=== PATIENT | female | born 1945 | race Caucasian/White ===

== ENCOUNTER 2019-07-24 14:15 | Emergency (ER) | payer MEDICARE, BC ==
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
[2019-07-24 15:37] LABS: INTERNATIONAL RATION (INR) 0.97; PROTHROMBIN TIME 12.9 SEC (11.4-15.4)
[2019-07-24 15:38] LABS: PARTIAL THROMBOPLASTIN TIME 33.7 SEC (23.5-35.8)
[2019-07-24 15:40] LABS: ABSOLUTE BASOPHILS # (AUTO) 0.1 10^3/uL (0.0-0.2); ABSOLUTE LYMPHOCYTES (AUTO) 1.3 10^3/uL (0.5-4.7); ABSOLUTE NEUT (AUTO) 4.5 10^3/uL (1.7-8.2); BASOPHILS % (AUTO) 0.9 % (0-2); EOSINOPHILS % (AUTO) 0.7 % (0-6); HEMATOCRIT 33.4 % (36.0-47.0); HEMOGLOBIN 10.7 g/dL (12.0-15.5); LYMPHOCYTES % (AUTO) 18.9 % (13-45); MEAN CORPUSCULAR HGB CONC 32.1 g/dL (32.0-36.0); MEAN CORPUSCULAR VOLUME 75 fl (80-97); MONOCYTES % (AUTO) 14.9 % (3-13); PLATELET COUNT 601 10^3/uL (150-450); RED BLOOD COUNT 4.45 10^6/uL (3.72-5.28); RED CELL DISTRIBUTION WIDTH 23.6 % (11.5-14.0); SEGMENTED NEUTROPHILS % (AUTO) 64.6 % (42-78); TOTAL CELLS COUNTED % (AUTO) 100 %; WHITE BLOOD COUNT 6.9 10^3/uL (4.0-10.5)
[2019-07-24 16:05] LABS: ALKALINE PHOSPHATASE 371 U/L (38-126); ANION GAP 10 (5-19); ASPARTATE AMINO TRANSFERASE 29 U/L (14-36); BILIRUBIN,DIRECT 0.5 mg/dL (0.0-0.4); BILIRUBIN,TOTAL 0.7 mg/dL (0.2-1.3); BLOOD UREA NITROGEN 11 mg/dL (7-20); CALCIUM 9.2 mg/dL (8.4-10.2); CARBON DIOXIDE 29 mmol/L (22-30); CHLORIDE 97 mmol/L (98-107); GLUCOSE 128 mg/dL (75-110); POTASSIUM 3.8 mmol/L (3.6-5.0); TOTAL PROTEIN 6.1 g/dL (6.3-8.2)
[2019-07-24 18:15] VITALS: BP 110/77
== END 2019-07-24 18:41 | disposition short-term general hospital (02) ==
LOC: ER 14:15
DX: S06.5X0A Traumatic subdural hemorrhage without loss of consciousness, initial encounter (principal); W10.2XXA Fall (on)(from) incline, initial encounter; R51 Headache; R27.0 Ataxia, unspecified; R53.1 Weakness; Z88.5 Allergy status to narcotic agent; Z88.0 Allergy status to penicillin; Z88.2 Allergy status to sulfonamides
CPT/HCPCS: 36415; 70450; 80053; 85025; 85610; 85730; 99291

== ENCOUNTER 2019-11-26 09:15 | Inpatient (IN) | payer MEDICARE, OTHER ==
[2019-11-26 09:55] LABS: HEMATOCRIT 29.8 % (36.0-47.0); HEMOGLOBIN 9.3 g/dL (12.0-15.5); MEAN CORPUSCULAR HEMOGLOBIN 26.6 pg (27.0-33.4); MEAN CORPUSCULAR HGB CONC 31.1 g/dL (32.0-36.0); MEAN CORPUSCULAR VOLUME 86 fl (80-97); PLATELET COUNT 302 10^3/uL (150-450); RED BLOOD COUNT 3.48 10^6/uL (3.72-5.28); RED CELL DISTRIBUTION WIDTH 17.1 % (11.5-14.0); WHITE BLOOD COUNT 24.9 10^3/uL (4.0-10.5)
[2019-11-26 10:08] LABS: ALBUMIN 3.4 g/dL (3.5-5.0); ALKALINE PHOSPHATASE 336 U/L (38-126); ANION GAP 8 (5-19); ASPARTATE AMINO TRANSFERASE 68 U/L (14-36); BILIRUBIN,DIRECT 0.4 mg/dL (0.0-0.4); BILIRUBIN,TOTAL 0.5 mg/dL (0.2-1.3); BLOOD UREA NITROGEN 24 mg/dL (7-20); CALCIUM 9.7 mg/dL (8.4-10.2); CARBON DIOXIDE 37 mmol/L (22-30); CHLORIDE 94 mmol/L (98-107); GLUCOSE 263 mg/dL (75-110); POTASSIUM 4.8 mmol/L (3.6-5.0); TOTAL PROTEIN 6.7 g/dL (6.3-8.2)
[2019-11-26 10:21] LABS: ABSOLUTE MONOCYTES # (MANUAL) 1.7 10^3/uL (0.1-1.4); BAND NEUTROPHILS % (MANUAL) 1 % (3-5); BASOPHILS % (MANUAL) 0 % (0-2); EOSINOPHILS % (MANUAL) 1 % (0-6); LYMPHOCYTES % (MANUAL) 8 % (13-45); MONOCYTES % (MANUAL) 7 % (3-13); SEGMENTED NEUTROPHILS % (MAN) 83 % (42-78); TOTAL CELLS COUNTED 100
[2019-11-26 10:22] LABS: ANISOCYTOSIS 1+; PLATELET COMMENT ADEQUATE; POIKILOCYTOSIS 2+; STOMATOCYTES 2+
--- NOTE | 2019-11-26 10:28 | RADIOLOGY REPORT (SQ) ---
EXAM DESCRIPTION: HIP LEFT AP/LATERAL COMPLETED DATE/TIME: 11/26/2019 10:13 am REASON FOR STUDY: tenderness from fall COMPARISON: None. NUMBER OF VIEWS: Two views. TECHNIQUE: AP pelvis and additional frog-leg view of the left hip. LIMITATIONS: None. FINDINGS: Bones are osteopenic. Acute intertrochanteric fracture of the left femoral neck. Old lef t pubic rami fractures. IMPRESSION: Intertrochanteric fracture left femoral neck. TECHNICAL DOCUMENTATION: JOB ID: [id number] [email or web address]- All Rights Reserved Reading location - IP/workstation name: [email or web address]
--- NOTE | 2019-11-26 10:29 | RADIOLOGY REPORT (SQ) ---
EXAM DESCRIPTION: HUMERUS LEFT COMPLETED DATE/TIME: 11/26/2019 10:13 am REASON FOR STUDY: left tenderness;fall COMPARISON: None. NUMBER OF VIEWS: Two views. TECHNIQUE: Two radiographic images were acquired of the left humerus to include elbow and shoulder i n at least one projection. LIMITATIONS: None. FINDINGS: MINERALIZATION: Osteopenia. BONES: Comminuted fracture of the surgical neck extending into the anatomic neck. Less than 1 cm dis placement. SOFT TISSUES: No foreign body. OTHER: No other significant finding. IMPRESSION: Fracture of the surgical neck extending into the anatomic neck. TECHNICAL DOCUMENTATION: JOB ID: [id number] [employer]- All Rights Reserved Reading location - IP/workstation name: [email or web address]
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
[2019-11-26] MEDS ORDERED: FENTANYL CITRATE INJ/PF 100 MCG/2 ML AMPUL IV ONE ×2 (10:31→12:12)
[2019-11-26] MEDS ORDERED: ONDANSETRON HCL INJ/PF 4 MG/2 ML SDV IV ONE (10:31)
[2019-11-26] MEDS ORDERED: CEFTRIAXONE 1 GM/D5W RTU 1 GM/50 ML RTUPB IV ONE (10:33)
[2019-11-26] MEDS ORDERED: AZITHROMYCIN INJ 500 MG VIAL IV ONE (10:34)
--- NOTE | 2019-11-26 10:45 | ER Document Report ---
ED General - General Chief Complaint: Shortness Of Breath Stated Complaint: FALL - ARM/HIP PAIN LEFT SIDE Time Seen by Provider: 11/26/19 10:05 Primary Care Provider: JASMIN MCBRIDE MD [Primary Care Provider] - Follow up as needed TRAVEL OUTSIDE OF THE [place] IN LAST 30 DAYS: No - HPI Notes: Patient is a 74-year-old female, oxygen dependent, with history of CAD, COPD, who presents to the emergency department for evaluation of left hip and left shoulder pain after a fall. She states she got up to go to the bathroom and just fell. She denies hitting her head. No loss of consciousness. No neck or back pain. She puts her pain at a 5 out of 5 in both her shoulder and her left hip. She denies any numbness. She states she has had a cough. She has chronic shortness of breath, states it feels somewhat worse now, but she is unsure as to whether or not this is secondary to her pain. No fevers or chills. No nausea or vomiting. She is been taking her medications as prescribed. - Related Data Allergies/Adverse Reactions: codeine Allergy (Verified 07/24/19 14:17) morphine Allergy (Verified 11/26/19 10:58) nitrofurantoin Allergy (Verified 11/26/19 10:58) Penicillins Allergy (Verified 07/24/19 14:17) Jaiqvmz-Syg-Rlt Reductase Inhibitor Allergy (Verified 11/26/19 10:58) Sulfa (Sulfonamide Antibiotics) Allergy (Verified 07/24/19 14:17) donatol Allergy (Uncoded 11/26/19 10:58) Home Medications: Losartan 25 mg daily, isosorbide mononitrate 30 mg twice a day, Synthroid 50 mcg daily, Lexapro 20 mg daily, metoprolol 50 mg daily, oxybutynin 5 mg twice a day, lutein 20 mg daily, folate 800 mcg daily, vitamin D3 25 mcg daily, vitamin B12 1000 international units daily, nitroglycerin 0.4 mg as needed, Symbicort 160/4.5 mcg daily, Spiriva 2.5 mcg daily Past Medical History - General Information source: Patient - Social History Smoking Status: Former Smoker Drug Abuse: None Family History: None Patient has suicidal ideation: No Patient has homicidal ideation: No - Past Medical History Cardiac Medical History: Reports: Hx Congestive Heart Failure, Hx Coronary Artery Disease, Hx Hypertension Pulmonary Medical History: Reports: Hx COPD Endocrine Medical History: Reports: Hx Diabetes Mellitus Type 2, Hx Hypothyroidism Past Surgical History: Reports: Hx Appendectomy, Hx Breast Surgery - left lumpectomy, Hx Cardiac Catheterization, Hx Cardiac Surgery - bypass, defib, stents x6, Hx Cholecystectomy Review of Systems - Review of Systems Constitutional: No symptoms reported EENT: No symptoms reported Cardiovascular: No symptoms reported Respiratory: See HPI Gastrointestinal: No symptoms reported Genitourinary: No symptoms reported Musculoskeletal: See HPI Skin: No symptoms reported Neurological/Psychological: No symptoms reported Physical Exam - Vital signs Vitals: Pulse Ox 82 L 11/26/19 09:18 - Notes Notes: This is a very frail-appearing 74-year-old female who appears her stated age in a mild amount of stress. She is tachypneic, using accessory muscles of res piration, marked increased work of breathing. Vital signs reviewed, please refer to chart. Head is normocephalic, atraumatic. Pupils equal round, reactive to light. Neck is supple without meningismus. Heart is regular rate and rhythm. Lungs reveal rales bilaterally. Abdomen is soft, nontender, normoactive bowel sounds throughout. Extremities without cyanosis, clubbing. Posterior calves are nontender. Peripheral pulses are equal. Skin is warm and dry. Examination of the left upper extremity yields obvious deformity at the humeral head with tenderness overlying. No clavicular tenderness. Full range of motion at the elbow, wrist, fingers, thumb. Radial pulse 2+. Examination of the left lower extremity yields a shortened, rotated left lower extremity and tenderness over the left greater trochanter. Neurovascular intact distally. Course - Re-evaluation Re-evalutation: 11/26/19 10:47 Patient presents to the emergency department for evaluation. She initially presented because of a fall. On arrival, however, she was tachypneic, tachycardic, markedly hypoxic on her normal home oxygen. Laboratory investigat ions were obtained, images of the chest, shoulder, hip were ordered as well. Chest x-ray showed findings most consistent with edema versus pneumonia. My suspicion clinically is that this is edema, but she does have a markedly elevated white count. Lactate, blood cultures were ordered. Patient was treated with Rocephin and azithromycin. She was placed on BiPAP. Additional laboratory investigations were ordered, including troponin, proBNP. Briggs catheter was ordered secondary to her immobilization from her left hip fracture. She was administered fentanyl and Zofran for symptoms. Dr. Mcintosh was consulted in regards to her orthopedic needs, but she will certainly need further medical management before being stable enough for surgery. This was explained to Dr. Mcintosh. Awaiting stabilization and further results, we will continue to monitor. 11/26/19 11:06 I was present in the room when patient was administered fentanyl. Her respiratory drive decreased. Her oxygen needs increased. I did put on 100% FiO2, and BiPAP was called more emergently to the room. Over the course of sev eral minutes, patient became more alert. I was not inclined to reverse this fentanyl given the 2 significant fractures that the patient has at this time. She is placed on BiPAP. Currently, she has a respiratory rate of 13, she is 95% on current BiPAP settings. Plan is to place her sling, place her Briggs catheter, and continue to monitor closely. 11/26/19 13:24 Patient rebounded well from the initial fentanyl dose. I did give her a further 25 mcg of fentanyl, which infected make her drowsy, but her respiratory status remained stable. She is tolerating BiPAP well. Laboratory investigation showed an elevated proBNP at 1770, but she does strongly meet sepsis protocol. A 30 cc/kg bolus of 1500 cc was ordered. The patient remained stable. I spoke with Noemi Verma, nurse practitioner, who will accept the patient with Dr. Thorpe. - Vital Signs Vital signs: Temp Pulse Resp BP Pulse Ox 97.3 F 22 H 111/88 H 82 L 11/26/19 09:35 11/26/19 09:39 11/26/19 09:39 11/26/19 09:39 - Laboratory Result Diagrams: 11/26/19 09:20 11/26/19 09:20 Laboratory results interpreted by me: 11/26/19 11/26/19 11/26/19 09:20 09:20 09:20 WBC 24.9 H RBC 3.48 L Hgb 9.3 L Hct 29.8 L MCH 26.6 L MCHC 31.1 L RDW 17.1 H Seg Neuts % (Manual) 83 H Band Neutrophils % 1 L Lymphocytes % (Manual) 8 L Abs Neuts (Manual) 20.9 H Abs Monocytes (Manual) 1.7 H VBG pH VBG pCO2 VBG HCO3 Chloride 94 L Carbon Dioxide 37 H BUN 24 H Glucose 263 H Lactic Acid AST 68 H Alkaline Phosphatase 336 H NT-Pro-B Natriuret Pep 1770 H Albumin 3.4 L Urine Protein Urine Ascorbic Acid 11/26/19 11/26/19 11/26/19 10:46 10:46 12:57 WBC RBC Hgb Hct MCH MCHC RDW Seg Neuts % (Manual) Band Neutrophils % Lymphocytes % (Manual) Abs Neuts (Manual) Abs Monocytes (Manual) VBG pH 7.21 L VBG pCO2 94.8 H* VBG HCO3 37.2 H Chloride Carbon Dioxide BUN Glucose Lactic Acid 2.9 H AST Alkaline Phosphatase NT-Pro-B Natriuret Pep Albumin Urine Protein 30 H Urine Ascorbic Acid 40 H - Diagnostic Test Radiology reviewed: Image reviewed, Reports reviewed Radiology results interpreted by me: 11/26/19 10:49 Hip X-Ray 11/26/19 00:00 IMPRESSION: Intertrochanteric fracture left femoral neck. Humerus X-Ray 11/26/19 00:00 IMPRESSION: Fracture of the surgical neck extending into the anatomic neck. Chest X-Ray 11/26/19 09:36 IMPRESSION: Bilateral pneumonia or asymmetric edema. - EKG Interpretation by Me Additional EKG results interpreted by me: 11/26/19 10:49 Sinus tachycardia with a rate of 110 bpm. Left axis deviation. Nonspecific ST changes, but no acute changes concerning for acute infarction. Critical Care Note - Critical Care Note Total time excluding time spent on procedures (mins): 55 Discharge - Discharge Clinical Impression: Closed intertrochanteric fracture of left hip Qualifiers: Encounter type: initial encounter Fracture alignment: nondisplaced Qualified Code(s): S72.145A - Nondisplaced intertrochanteric fracture of left femur, initial encounter for closed fracture Closed fracture of left proximal humerus Qualifiers: Encounter type: initial encounter Fracture morphology: unspecified fracture morphology Qualified Code(s): S42.202A - Unspecified fracture of upper end of left humerus, initial encounter for closed fracture Hypercapnic respiratory failure Qualifiers: Chronicity: acute on chronic Qualified Code(s): J96.22 - Acute and chronic respiratory failure with hypercapnia Pneumonia Qualifiers: Pneumonia type: due to unspecified organism Laterality: bilateral Lung location: unspecified part of lung Qualified Code(s): J18.9 - Pneumonia, unspecified organism Sepsis Qualifiers: Sepsis type: sepsis due to unspecified organism Sepsis acute organ dysfunction status: with acute organ dysfunction Severe sepsis acute organ dysfunction type: acute respiratory failure Acute respiratory failure type: with hypercapnia Condition: Stable Disposition: ADMITTED INPATIENT Admitting Provider: Ila (Hospitalist) - Noemi Verma SHAMPOOER Unit Admitted: [facility] Referrals: JASMIN MCBRIDE MD [Primary Care Provider] - Follow up as needed
[2019-11-26 11:28] LABS: VENOUS BLOOD BASE EXCESS 5.5 mmol/L; VENOUS BLOOD HCO3 37.2 mmol/L (20-32); VENOUS BLOOD PH 7.21 (7.30-7.42)
[2019-11-26 11:30] LABS: VENOUS BLOOD PCO2 94.8 mmHg (35-63)
[2019-11-26 12:13] LABS: INTERNATIONAL RATION (INR) 0.96; PROTHROMBIN TIME 12.7 SEC (11.4-15.4)
[2019-11-26] MEDS ORDERED: NORMAL SALINE 1000 ML 1,000 ML IV ONE (12:13)
[2019-11-26 12:39] LABS: TROPONIN I 0.025 ng/mL
[2019-11-26 13:12] LABS: APPEARANCE,URINE CLEAR; BILIRUBIN,URINE NEGATIVE (NEGATIVE); COLOR,URINE YELLOW; GLUCOSE, URINE NEGATIVE (NEGATIVE); KETONES,URINE NEGATIVE (NEGATIVE); LEUKOCYTE ESTERASE,URINE NEGATIVE (NEGATIVE); NITRITE,URINE NEGATIVE (NEGATIVE); PROTEIN,URINE 30 mg/dL (NEGATIVE); URINE SPECIFIC GRAVITY 1.015; UROBILINOGEN,URINE NEGATIVE mg/dL (<2.0)
[2019-11-26] MEDS ORDERED: NORMAL SALINE 500 ML IV ONE (13:18)
[2019-11-26] MEDS ORDERED: METOCLOPRAMIDE HCL ORAL SOLN 10 MG/10 ML UDCUP PO ONE (14:09)
[2019-11-26] MEDS ORDERED: LIDOCAINE 2% VISCOUS SOLN 15 ML UDCUP PO ONE (14:09)
[2019-11-26] MEDS ORDERED: MAG HYDROX/AL HYDROX/SIMETH SUSP 30 ML UDCUP PO ONE (14:09)
[2019-11-26] MEDS ORDERED: ACETAMINOPHEN 325 MG TABLET PO PRN (14:10)
[2019-11-26] MEDS ORDERED: GUAIFENESIN SYRP 200 MG/10 ML UDC PO PRN (14:10)
[2019-11-26] MEDS ORDERED: ALBUTEROL SULFATE 0.083% NEB 2.5 MG/3 ML AMPUL NEB PRN (14:10)
[2019-11-26] MEDS ORDERED: FENTANYL CITRATE INJ/PF 100 MCG/2 ML AMPUL IV PRN (14:13)
--- NOTE | 2019-11-26 15:42 | EKG REPORT ---
SEVERITY:- ABNORMAL ECG - SINUS TACHYCARDIA LEFT ANTERIOR FASCICULAR BLOCK LEFT VENTRICULAR HYPERTROPHY : Confirmed by: Krystal Gonzalez MD 26-Nov-2019 15:41:58
--- NOTE | 2019-11-26 15:43 | EKG REPORT ---
SEVERITY:- ABNORMAL ECG - SINUS TACHYCARDIA LEFT ANTERIOR FASCICULAR BLOCK LVH WITH SECONDARY REPOLARIZATION ABNORMALITY ANTERIOR Q WAVES, POSSIBLY DUE TO LVH : Confirmed by: Krystal Gonzalez MD 26-Nov-2019 15:42:14
[2019-11-26 16:39] LABS: ARTERIAL BLOOD BASE EXCESS 4.3 mmol/L; ARTERIAL BLOOD H2CO3 1.94 mmol/L (1.05-1.35); ARTERIAL BLOOD HCO3 31.6 mmol/L (20-24); ARTERIAL BLOOD O2 SATURATION 91.3 % (94-98); ARTERIAL BLOOD PCO2 64.3 mmHg (35-45); ARTERIAL BLOOD PH 7.31 (7.35-7.45); ARTERIAL BLOOD PO2 67.9 mmHg (80-100); ARTERIAL BLOOD TOTAL CO2 33.5 mmol/L (21-25)
[2019-11-26 16:40] LABS: ARTERIAL BLOOD FIO2 35%
--- NOTE | 2019-11-26 17:00 | PDOC CONSULTATION ---
Consultation Consult Date: 11/26/19 Provider Consulted: YEN ZAMORA JR History of Present Illness Admission Date/PCP: 11/26/19 13:34 JASMIN MCBRIDE MD History of Present Illness: NAHID REA is a 74 year old female, oxygen dependent with multiple comorbidities who presents the emergency department after a fall. She reports falling in her bathroom but is unsure exactly how it occurred. Subsequently, she had left upper extremity pain in the shoulder and inability to ambulate due to severe left hip pain. She denies hitting her head denies any loss of consciousness denied prior altered sensorium. Pain is a 8 out of 10 at rest right now, she is requesting pain medication from the emergency department. She does have a history of CAD and COPD with a chronic shortness of breath however this is unchanged at the current time. Pain is improved with pain medication worsened with any mobility or motion nonradiating from the proximal humerus as well as the left hip. Aching sharp in nature. Constant. Past Medical History Cardiac Medical History: Reports: Congestive Heart Failure, Coronary Artery Disease, Hypertension Pulmonary Medical History: Reports: Chronic Obstructive Pulmonary Disease (COPD) Endocrine Medical History: Reports: Diabetes Mellitus Type 2, Hypothyroidism Past Surgical History Past Surgical History: Reports: Appendectomy, Cardiac Catheterization, Ch olecystectomy Social History Smoking Status: Former Smoker Family History Family History: None Parental Family History Reviewed: No Children Family History Reviewed: NA Sibling(s) Family History Reviewed.: NA Medication/Allergy Home Medications: Acetaminophen 500 mg PO PRN PRN 11/26/19 Bacillus Coagulans [Digestive Advantage] 1 each PO QAM 11/26/19 Budesonide/Formoterol Fumarate [Symbicort Hfa 160-4.5 Mcg Inhaler 6 gm] 2 puff IH Q12 11/26/19 Cholecalciferol (Vitamin D3) [Vitamin D3 1000 Unit Tablet] 1,000 unit PO QAM 11/26/19 Cyanocobalamin (Vitamin B-12) [Vitamin B-12] 1,000 mcg PO QAM 11/26/19 Escitalopram Oxalate [Lexapro] 20 mg PO QHS 11/26/19 Folic Acid 0.8 mg PO QAM 11/26/19 Isosorbide Mononitrate [Imdur 30 mg Tablet.er] 30 mg PO BID 11/26/19 Levothyroxine Sodium [Synthroid 0.05 mg Tablet] 0.05 mg PO Q6AM 11/26/19 Losartan Potassium [Cozaar 25 mg Tablet] 25 mg PO QAM 11/26/19 Lutein [Natural Lutein] 20 mg PO QAM 11/26/19 Metoprolol Succinate [Toprol Xl 50 mg Tab.sr] 50 mg PO QAM 11/26/19 Nitroglycerin [Nitrostat 0.4 mg (1/150 Gr) Tabs 25/Bottle] 1 tab SL Q5MP PRN 11/26/19 Oxybutynin Chloride [Ditropan 5 Mg Tablet] 5 mg PO BID 11/26/19 Ranolazine [Ranexa 500 mg Tab.sr] 500 mg PO Q12 11/26/19 Tiotropium [place] [Spiriva Respimat] 2 puff IH BID 11/26/19 Allergies/Adverse Reactions: Penicillins Allergy (Intermediate, Verified 11/26/19 14:20) atropine [From ] Allergy (Unknown, Verified 11/26/19 14:18) hyoscyamine [From ] Allergy (Unknown, Verified 11/26/19 14:18) phenobarbital [From ] Allergy (Unknown, Verified 11/26/19 14:18) scopolamine [From ] Allergy (Unknown, Verified 11/26/19 14:18) codeine Allergy (Verified 07/24/19 14:17) morphine Allergy (Verified 11/26/19 10:58) nitrofurantoin Allergy (Verified 11/26/19 10:58) [id number] Reductase Inhibitor Allergy (Verified 11/26/19 10:58) Sulfa (Sulfonamide Antibiotics) Allergy (Verified 07/24/19 14:17) Review of Systems Review of Systems: Constitutional: ABSENT: anorexia, chills, night sweats Cardiovascular: ABSENT: chest pain Respiratory: Present dyspnea Gastrointestinal: ABSENT: vomiting Genitourinary: ABSENT: dysuria Integumentary: ABSENT: rash Neurological: ABSENT: confusion, memory loss, numbness Psychiatric: ABSENT: hallucinations Hematologic/Lymphatic: ABSENT: easy bleeding All negative as above aside from that reported in the HPI and the following: Left hip and left shoulder pain Physical Exam Vital Signs: Temp Pulse Resp BP Pulse Ox 97.3 F 18 133/81 H 95 11/26/19 09:35 11/26/19 14:21 11/26/19 14:21 11/26/19 14:21 Intake & Output 11/25/19 11/26/19 11/27/19 06:59 06:59 06:59 Intake Total 550 Balance 550 Weight 49.895 kg Physical Exam: General appearance: PRESENT: no acute distress, cooperative, well-nourished Head exam: PRESENT: atraumatic, normocephalic Eye exam: PRESENT: EOMI Ear exam: PRESENT: normal external ear exam Mouth exam: PRESENT: neck supple Neck exam: ABSENT: tracheal deviation Respiratory exam: PRESENT: symmetrical, unlabored. She is on oxygen with some mild increased accessory muscle use Pulses: PRESENT: normal radial pulses, normal dorsalis pedis pulse Vascular exam: PRESENT: normal capillary refill GI/Abdominal exam: ABSENT: distended, firm Extremities exam: PRESENT: full ROM of right shoulders, bilateral elbows wrists, right hip, and bilateral ankles without pain Musculoskeletal exam: PRESENT: full ROM, normal inspection of all 4 extremities aside from that noted below. Neurological exam: PRESENT: alert, awake, oriented to person, oriented to place, oriented to time Psychiatric exam: PRESENT: appropriate affect. ABSENT: agitated Focused psych exam: ABSENT: catatonic Skin exam: PRESENT: intact. ABSENT: dry All as above aside from that noted in the HPI and the following: -Pulses 2+ distally -Compartments soft -Leg shortened, externally rotated, pain with any attempted logroll -Sensation grossly intact to L3-4-5 S1 -Motor grossly intact to EHL TA gastroc and quad upper extremity sensation grossly intact to radial median and ulnar nerve. upper extremity motor function grossly intact to radian median ulnar nerve AIN and PIN Pulses 2+, capillary refill less than 2 seconds No deformity noted full range of motion of the elbow wrist and fingers without pain Is to palpation about the shoulder, some swelling, pain with any attempted range of motion Compartments soft, no tenderness to palpation skin intact Results Laboratory Results: 11/26/19 09:20 11/26/19 09:20 11/26/19 11/26/19 11/26/19 09:20 09:20 10:46 WBC 24.9 H RBC 3.48 L Hgb 9.3 L Hct 29.8 L MCV 86 MCH 26.6 L MCHC 31.1 L RDW 17.1 H Plt Count 302 Seg Neutrophils % Not Reportable Carbonic Acid HCO3/H2CO3 Ratio ABG pH ABG pCO2 ABG pO2 ABG HCO3 ABG O2 Saturation ABG Base Excess VBG pH 7.21 L VBG pCO2 94.8 H* VBG HCO3 37.2 H VBG Base Excess 5.5 FiO2 Sodium 139.0 Potassium 4.8 Chloride 94 L Carbon Dioxide 37 H Anion Gap 8 BUN 24 H Creatinine 0.88 Est GFR ( Amer) > 60 Glucose 263 H Lactic Acid Calcium 9.7 Total Bilirubin 0.5 AST 68 H Alkaline Phosphatase 336 H Total Protein 6.7 Albumin 3.4 L Urine Color Urine Appearance Urine pH Ur Specific [place] Urine Protein Urine Glucose (UA) Urine Ketones Urine Blood Urine Nitrite Ur Leukocyte Esterase Urine WBC (Auto) Urine RBC (Auto) 11/26/19 11/26/19 11/26/19 10:46 12:57 13:45 WBC RBC Hgb Hct MCV MCH MCHC RDW Plt Count Seg Neutrophils % Carbonic Acid HCO3/H2CO3 Ratio ABG pH ABG pCO2 ABG pO2 ABG HCO3 ABG O2 Saturation ABG Base Excess VBG pH VBG pCO2 VBG HCO3 VBG Base Excess FiO2 Sodium Potassium Chloride Carbon Dioxide Anion Gap BUN Creatinine Est GFR ( Amer) Glucose Lactic Acid 2.9 H 1.6 Calcium Total Bilirubin AST Alkaline Phosphatase Total Protein Albumin Urine Color YELLOW Urine Appearance CLEAR Urine pH 6.0 Ur Specific [place] 1.015 Urine Protein 30 H Urine Glucose (UA) NEGATIVE Urine Ketones NEGATIVE Urine Blood NEGATIVE Urine Nitrite NEGATIVE Ur Leukocyte Esterase NEGATIVE Urine WBC (Auto) 1 Urine RBC (Auto) 1 11/26/19 16:15 WBC RBC Hgb Hct MCV MCH MCHC RDW Plt Count Seg Neutrophils % Carbonic Acid 1.94 H HCO3/H2CO3 Ratio 16:1 ABG pH 7.31 L ABG pCO2 64.3 H ABG pO2 67.9 L ABG HCO3 31.6 H ABG O2 Saturation 91.3 L ABG Base Excess 4.3 VBG pH VBG pCO2 VBG HCO3 VBG Base Excess FiO2 35% Sodium Potassium Chloride Carbon Dioxide Anion Gap BUN Creatinine Est GFR ( Amer) Glucose Lactic Acid Calcium Total Bilirubin AST Alkaline Phosphatase Total Protein Albumin Urine Color Urine Appearance Urine pH Ur Specific [place] Urine Protein Urine Glucose (UA) Urine Ketones Urine Blood Urine Nitrite Ur Leukocyte Esterase Urine WBC (Auto) Urine RBC (Auto) 11/26/19 11/26/19 09:20 15:23 Troponin I 0.025 0.194 NT-Pro-B Natriuret Pep 1770 H Impressions: Hip X-Ray 11/26/19 00:00 IMPRESSION: Intertrochanteric fracture left femoral neck. Humerus X-Ray 11/26/19 00:00 IMPRESSION: Fracture of the surgical neck extending into the anatomic neck. Chest X-Ray 11/26/19 09:36 IMPRESSION: Bilateral pneumonia or asymmetric edema. Assessment & Plan - Diagnosis (1) Closed intertrochanteric fracture of left hip Qualifiers: Encounter type: initial encounter Fracture alignment: nondisplaced Qualified Code(s): S72.145A - Nondisplaced intertrochanteric fracture of left femur, initial encounter for closed fracture Plan: This will require surgical intervention in order to allow the patient to mobilize and decreasing her risk of further morbidity and mortality. -We will plan for OR as soon as medically stable -Currently on the schedule for tomorrow pending medical clearance, hold DVT prophylaxis after midnight tonight keep n.p.o. after midnight. -Bedrest -[place] -Pain control to be multimodal and avoid over use of narcotics, consider Toradol, tramadol, acetaminophen, NSAIDs, gabapentin (2) Closed fracture of left proximal humerus Qualifiers: Encounter type: initial encounter Fracture morphology: unspecified fracture morphology Qualified Code(s): S42.202A - Unspecified fracture of upper end of left humerus, initial encounter for closed fracture Plan: Given her severe medical comorbidities operative intervention for her left shoulder may not be warranted at this time. As for now she is to be nonweightbearing left upper extremity in a sling for comfort. -Pain control per medical team -Encourage elbow and hand range of motion
[2019-11-26] MEDS ORDERED: GLUCAGON,HUMAN RECOMB 1 MG INJ SUBCUT PRN (17:09)
[2019-11-26] MEDS ORDERED: DEXTROSE 40% GEL 15 GM TUBE PO PRN ×2 (17:09)
[2019-11-26] MEDS ORDERED: DEXTROSE 50%-WATER 25 GM/50 ML DISP.SYRIN IV PRN ×2 (17:09)
--- NOTE | 2019-11-26 17:23 | PDOC H&P ---
History of Present Illness Admission Date/PCP: 11/26/19 13:34 JASMIN MCBRIDE MD Patient complains of: Left hip and shoulder pain following a mechanical fall at home History of Present Illness: NAHID REA is a 74 year old female with a past medical history of CHF, CAD, hypertension, hyperlipidemia, CABG x2, cardiac cath with stents x8, AICD, DM 2, hypothyroidism, and oxygen dependent COPD who presented to the emergency department today by EMS with complaint of left arm and hip pain after mechanical fall at home. Evaluation in the emergency department revealed tachycardia (HR 110), tachypnea (RR 27), hypoxia (73% on baseline oxygen requirement), leukocytosis (WBCs 24.9) anemia (hemoglobin 9.3; near baseline), chronic respiratory acidosis with hyp ercapnia (pH 7.31, PCO2 64, O2 67, HC 03 31.6 on BiPAP), mildly elevated AST and alk phos, lactic acid 2.9, troponin 0 0.025 and a proBNP of 1700. Urinalysis was negative. EKG demonstrated sinus tachycardia. Chest x-ray revealed asymmetric pneumonia. Humerus and hip x-ray revealed left shoulder and hip fractures. Orthopedics has been consulted; Dr. Mcintosh plans orthopedic repair of the hip once medically optimized. She is referred to the hospitalist service for admission and management of the above-stated complaints and findings. Past Medical History Cardiac Medical History: Reports: Congestive Heart Failure, Coronary Artery Disease, Hyperlipidema, Hypertension Pulmonary Medical History: Reports: Chronic Obstructive Pulmonary Disease (COPD), Respiratory Failure EENT Medical History: Reports: None Neurological Medical History: Reports: Hemorrhagic CVA Endocrine Medical History: Reports: Diabetes Mellitus Type 2, Hypothyroidism Renal/ Medical History: Reports: None Malignancy Medical History: Reports: Breast Cancer GI Medical History: Reports: Gastroesophageal Reflux Disease Musculoskeltal Medical History: Reports: Arthritis Psychiatric Medical History: Reports: None Traumatic Medical History: Reports: None Infectious Medical History: Reports: None Past Surgical History Past Surgical History: Reports: Appendectomy, Cardiac Catheterization, Cholecystectomy, Coronary Stent Social History Information Source: Patient, Relative Lives with: Family Smoking Status: Former Smoker Electronic Cigarette use?: Yes Frequency of Alcohol Use: None Hx Recreational Drug Use: No Drugs: None Hx Prescription Drug Abuse: No - Advance Directive Resuscitation Status: Full Code Surrogate healthcare decision maker:: The patient's daughter, Summer Sexton, Family History Family History: None Parental Family History Reviewed: Yes Children Family History Reviewed: Yes Sibling(s) Family History Reviewed.: Yes Medication/Allergy Home Medications: Acetaminophen 500 mg PO PRN PRN 11/26/19 Bacillus Coagulans [Digestive Advantage] 1 each PO QAM 11/26/19 Budesonide/Formoterol Fumarate [Symbicort Hfa 160-4.5 Mcg Inhaler 6 gm] 2 puff IH Q12 11/26/19 Cholecalciferol (Vitamin D3) [Vitamin D3 1000 Unit Tablet] 1,000 unit PO QAM 11/26/19 Cyanocobalamin (Vitamin B-12) [Vitamin B-12] 1,000 mcg PO QAM 11/26/19 Escitalopram Oxalate [Lexapro] 20 mg PO QHS 11/26/19 Folic Acid 0.8 mg PO QAM 11/26/19 Isosorbide Mononitrate [Imdur 30 mg Tablet.er] 30 mg PO BID 11/26/19 Levothyroxine Sodium [Synthroid 0.05 mg Tablet] 0.05 mg PO Q6AM 11/26/19 Losartan Potassium [Cozaar 25 mg Tablet] 25 mg PO QAM 11/26/19 Lutein [Natural Lutein] 20 mg PO QAM 11/26/19 Metoprolol Succinate [Toprol Xl 50 mg Tab.sr] 50 mg PO QAM 11/26/19 Nitroglycerin [Nitrostat 0.4 mg (1/150 Gr) Tabs 25/Bottle] 1 tab SL Q5MP PRN 11/26/19 Oxybutynin Chloride [Ditropan 5 Mg Tablet] 5 mg PO BID 11/26/19 Ranolazine [Ranexa 500 mg Tab.sr] 500 mg PO Q12 11/26/19 Tiotropium [place] [Spiriva Respimat] 2 puff IH BID 11/26/19 Allergies/Adverse Reactions: Penicillins Allergy (Intermediate, Verified 11/26/19 14:20) atropine [From ] Allergy (Unknown, Verified 11/26/19 14:18) hyoscyamine [From ] Allergy (Unknown, Verified 11/26/19 14:18) phenobarbital [From ] Allergy (Unknown, Verified 11/26/19 14:18) scopolamine [From ] Allergy (Unknown, Verified 11/26/19 14:18) codeine Allergy (Verified 07/24/19 14:17) morphine Allergy (Verified 11/26/19 10:58) nitrofurantoin Allergy (Verified 11/26/19 10:58) Woruuuh-Brq-Lpb Reductase Inhibitor Allergy (Verified 11/26/19 10:58) Sulfa (Sulfonamide Antibiotics) Allergy (Verified 07/24/19 14:17) Review of Systems Constitutional: ABSENT: chills, fever(s), headache(s), weight gain, weight loss Eyes: ABSENT: visual disturbances Ears: ABSENT: hearing changes Cardiovascular: ABSENT: chest pain, dyspnea on exertion, edema, orthropnea, palpitations Respiratory: PRESENT: cough, dyspnea, sputum. ABSENT: hemoptysis Gastrointestinal: ABSENT: abdominal pain, constipation, diarrhea, hematemesis, hematochezia, nausea, vomiting Genitourinary: ABSENT: dysuria, hematuria Musculoskeletal: PRESENT: as per HPI, deformity. ABSENT: joint swelling Integumentary: ABSENT: rash, wounds Neurological: ABSENT: abnormal gait, abnormal speech, confusion, dizziness, focal weakness, syncope Psychiatric: ABSENT: anxiety, depression, homidical ideation, suicidal ideation Endocrine: ABSENT: cold intolerance, heat intolerance, polydipsia, polyuria Hematologic/Lymphatic: ABSENT: easy bleeding, easy bruising Physical Exam Vital Signs: Temp Pulse Resp BP Pulse Ox 97.3 F 18 133/81 H 95 11/26/19 09:35 11/26/19 14:21 11/26/19 14:21 11/26/19 14:21 Intake & Output 11/25/19 11/26/19 11/27/19 06:59 06:59 06:59 Intake Total 550 Balance 550 Weight 49.895 kg General appearance: PRESENT: no acute distress, cooperative, disheveled, thin, well-developed, other - Frail, chronically ill-appearing Head exam: PRESENT: atraumatic, normocephalic Eye exam: PRESENT: conjunctiva pink, EOMI, PERRLA. ABSENT: scleral icterus Ear exam: PRESENT: normal external ear exam Mouth exam: PRESENT: moist, tongue midline Teeth exam: PRESENT: poor dentation Respiratory exam: PRESENT: prolonged expiratory phas, rhonchi, symmetrical, tachypnea, other - BiPAP. ABSENT: rales, wheezes Cardiovascular exam: PRESENT: RRR, +S1, +S2, tachycardia. ABSENT: diastolic murmur, rubs, systolic murmur Pulses: PRESENT: normal dorsalis pedis pul Vascular exam: PRESENT: normal capillary refill GI/Abdominal exam: PRESENT: normal bowel sounds, soft. ABSENT: distended, guarding, mass, organolmegaly, rebound, tenderness Rectal exam: PRESENT: deferred Extremities exam: PRESENT: other - Left arm to sling, LLE shortened and externally rotated. ABSENT: calf tenderness, clubbing, full ROM, pedal edema Neurological exam: PRESENT: alert, awake, oriented to person, oriented to place, oriented to time, oriented to situation, CN II-XII grossly intact. ABSENT: motor sensory deficit Psychiatric exam: PRESENT: appropriate affect, normal mood. ABSENT: homicidal ideation, suicidal ideation Skin exam: PRESENT: dry, intact, warm. ABSENT: cyanosis, rash Results Laboratory Results: 11/26/19 09:20 11/26/19 09:20 11/26/19 11/26/19 11/26/19 09:20 09:20 10:46 WBC 24.9 H RBC 3.48 L Hgb 9.3 L Hct 29.8 L MCV 86 MCH 26.6 L MCHC 31.1 L RDW 17.1 H Plt Count 302 Seg Neutrophils % Not Reportable Carbonic Acid HCO3/H2CO3 Ratio ABG pH ABG pCO2 ABG pO2 ABG HCO3 ABG O2 Saturation ABG Base Excess VBG pH 7.21 L VBG pCO2 94.8 H* VBG HCO3 37.2 H VBG Base Excess 5.5 FiO2 Sodium 139.0 Potassium 4.8 Chloride 94 L Carbon Dioxide 37 H Anion Gap 8 BUN 24 H Creatinine 0.88 Est GFR ( Amer) > 60 Glucose 263 H Lactic Acid Calcium 9.7 Total Bilirubin 0.5 AST 68 H Alkaline Phosphatase 336 H Total Protein 6.7 Albumin 3.4 L Urine Color Urine Appearance Urine pH Ur Specific [place] Urine Protein Urine Glucose (UA) Urine Ketones Urine Blood Urine Nitrite Ur Leukocyte Esterase Urine WBC (Auto) Urine RBC (Auto) 11/26/19 11/26/19 11/26/19 10:46 12:57 13:45 WBC RBC Hgb Hct MCV MCH MCHC RDW Plt Count Seg Neutrophils % Carbonic Acid HCO3/H2CO3 Ratio ABG pH ABG pCO2 ABG pO2 ABG HCO3 ABG O2 Saturation ABG Base Excess VBG pH VBG pCO2 VBG HCO3 VBG Base Excess FiO2 Sodium Potassium Chloride Carbon Dioxide Anion Gap BUN Creatinine Est GFR ( Amer) Glucose Lactic Acid 2.9 H 1.6 Calcium Total Bilirubin AST Alkaline Phosphatase Total Protein Albumin Urine Color YELLOW Urine Appearance CLEAR Urine pH 6.0 Ur Specific [place] 1.015 Urine Protein 30 H Urine Glucose (UA) NEGATIVE Urine Ketones NEGATIVE Urine Blood NEGATIVE Urine Nitrite NEGATIVE Ur Leukocyte Esterase NEGATIVE Urine WBC (Auto) 1 Urine RBC (Auto) 1 11/26/19 16:15 WBC RBC Hgb Hct MCV MCH MCHC RDW Plt Count Seg Neutrophils % Carbonic Acid 1.94 H HCO3/H2CO3 Ratio 16:1 ABG pH 7.31 L ABG pCO2 64.3 H ABG pO2 67.9 L ABG HCO3 31.6 H ABG O2 Saturation 91.3 L ABG Base Excess 4.3 VBG pH VBG pCO2 VBG HCO3 VBG Base Excess FiO2 35% Sodium Potassium Chloride Carbon Dioxide Anion Gap BUN Creatinine Est GFR ( Amer) Glucose Lactic Acid Calcium Total Bilirubin AST Alkaline Phosphatase Total Protein Albumin Urine Color Urine Appearance Urine pH Ur Specific [place] Urine Protein Urine Glucose (UA) Urine Ketones Urine Blood Urine Nitrite Ur Leukocyte Esterase Urine WBC (Auto) Urine RBC (Auto) 11/26/19 11/26/19 09:20 15:23 Troponin I 0.025 0.194 NT-Pro-B Natriuret Pep 1770 H Impressions: Hip X-Ray 11/26/19 00:00 IMPRESSION: Intertrochanteric fracture left femoral neck. Humerus X-Ray 11/26/19 00:00 IMPRESSION: Fracture of the surgical neck extending into the anatomic neck. Chest X-Ray 11/26/19 09:36 IMPRESSION: Bilateral pneumonia or asymmetric edema. Assessment and Plan - Diagnosis (1) Acute and chronic respiratory failure with hypercapnia Is this a current diagnosis for this admission?: Yes Plan: Multifactorial secondary to pneumonia, COPD exacerbation, opiate pain medications Patient utilizes mental oxygen at 2 L/min continuously at baseline. She does not have home CPAP or BiPAP. ABG shows chronic hypercapnia We will continue supplemental oxygen and BiPAP as needed to maintain saturations. Scheduled as needed nebulizer treatments. Patient is empirically placed on antibiotics for treatment of community-acquired pneumonia. Encourage pulmonary toilet. (2) Pneumonia Qualifiers: Pneumonia type: due to unspecified organism Laterality: bilateral Lung location: unspecified part of lung Qualified Code(s): J18.9 - Pneumonia, unspecified organism Is this a current diagnosis for this admission?: Yes Plan: Cultures are pending. Sputum cultures ordered. Patient is empirically placed on IV azithromycin and Rocephin for treatment of community-acquired pneumonia. Remaining evaluation management as above. (3) CAD (coronary artery disease) Qualifiers: Coronary Disease-Associated Artery/Lesion type: unspecified vessel or lesion type Associated angina: without angina Is this a current diagnosis for this admission?: Yes Plan: The patient has a history of [place], two-vessel bypass, cardiac cath x 8 stents, hypertension, hyperlipidemia, DM 2 EKGs showed sinus tachycardia Initial troponin indeterminate at 0.025; trending up to 0.194. This is likely secondary to hypoxia (following administration of IV fentanyl, patient did require BVM support followed byBiPAP) The patient will be monitored on continuous cardiac telemetry. Continue to trend troponins. Antihypertensives as below. Management of acute on chronic respiratory failure is described above. Due to the patient's significant cardiac history, cardiology services are consulted to provide preoperative evaluation and recommendations. (4) Hypertension Is this a current diagnosis for this admission?: Yes Plan: Continue the patient's home medication regiment of metoprolol, losartan, isosorbide, Ranexa Cardiac diet (5) Hyperlipidemia Is this a current diagnosis for this admission?: Yes Plan: Does not appear the patient is on statin therapy. Cardiac diet (6) COPD (chronic obstructive pulmonary disease) Qualifiers: COPD type: unspecified COPD Qualified Code(s): J44.9 - Chronic obstructive pulmonary disease, unspecified Is this a current diagnosis for this admission?: Yes Plan: With exacerbation secondary to pneumonia. Continue supplemental oxygen and BiPAP as needed to maintain oxygen saturations. Scheduled as needed nebulizer treatments. Antibiotics as above. Mucinex twice daily. Encourage pulmonary toilet. (7) Closed fracture of left proximal humerus Qualifiers: Encounter type: initial encounter Fracture morphology: unspecified fracture morphology Qualified Code(s): S42.202A - Unspecified fracture of upper end of left humerus, initial encounter for closed fracture Is this a current diagnosis for this admission?: Yes Plan: Orthopedics is consulted; primary management per Dr. Mcintosh. Analgesics as needed. (8) Closed intertrochanteric fracture of left hip Qualifiers: Encounter type: initial encounter Fracture alignment: nondisplaced Qualified Code(s): S72.145A - Nondisplaced intertrochanteric fracture of left femur, initial encounter for closed fracture Is this a current diagnosis for this admission?: Yes Plan: Orthopedics is consulted; primary management per Dr. Mcintosh. Analgesics as needed. Heparin preoperatively. Postop DVT prophylaxis per orthopedic service. N.p.o. after midnight. Cardiology service consulted for cardiac clearance. (9) Sepsis Qualifiers: Sepsis type: sepsis due to unspecified organism Sepsis acute organ dysfunction status: with acute organ dysfunction Severe sepsis acute organ dysfunction type: acute respiratory failure Acute respiratory failure type: with hypercapnia Severe sepsis shock status: without septic shock Qualified Code(s): A41.9 - Sepsis, unspecified organism; R65.20 - Severe sepsis without septic shock; J96.02 - Acute respiratory failure with hypercapnia Is this a current diagnosis for this admission?: Yes Plan: Sepsis due to community-acquired pneumonia, present on admission, evidenced by tachycardia, tachypnea, hypoxia on baseline oxygen requirement, Leukocytosis, elevated lactic acid and evidence of pneumonia on CXR. Cultures and antibiotics as above. Received appropriate IV fluid resuscitation by ED provider. - Time Time Spent with patient: 35 or more minutes Medications reviewed and adjusted accordingly: Yes Anticipated discharge: SNF - Inpatient Certification Based on my medical assessment, after consideration of the patient's comorbidities, presenting symptoms, or acuity I expect that the services needed warrant INPATIENT care.: Yes I certify that my determination is in accordance with my understanding of Medicare's requirements for reasonable and necessary INPATIENT services [42 CFR 412.3e].: Yes Medical Necessity: Significant Comorbidiites Make Outpatient Treatment Too Risky, Need Close Monitoring Due to Risk of Patient Decompensation, Need For IV Fluids, Need For Continuous Telemetry Monitoring, Need for Pain Control, Need for IV Antibiotics, Need for Surgery, Risk of Complication if Not Cared For in Hospital
[2019-11-26] MEDS: ISOSORBIDE MONONITRATE 30 MG TAB.ER.24H PO SCH (17:38)
[2019-11-26] MEDS: OXYBUTYNIN CHLORIDE 5 MG TABLET PO SCH (17:38)
[2019-11-26] MEDS: HYDROMORPHONE HCL INJ/PF 2 MG/ML AMPULE IV PRN ×2 (17:39→21:21)
[2019-11-26] MEDS: NORMAL SALINE 1000 ML 1,000 ML IV PRN (19:05)
--- NOTE | 2019-11-26 20:15 | PDOC CONSULTATION ---
Consultation Consult Date: 11/26/19 Provider Consulted: VÍCTOR REA Consult reason:: Preoperative cardiovascular assessment History of Present Illness Admission Date/PCP: 11/26/19 13:34 JASMIN MCBRIDE MD Patient complains of: Left hip pain History of Present Illness: NAHID REA is a 74 year old female With the following active problems 1. Coronary artery disease 2. Systemic hypertension 3. Dyslipidemia 4. CABG-[facility] 5. Left-sided Med[employer] ICD 72-year-old lady with known coronary artery disease with multiple stents who status post CABG approximately 2 years ago in [facility]. Patient reports having had a left-sided Medtronic defibrillator for approximately 5 years. Apparently this was placed in the setting of dilated cardiomyopathy likely for primary prevention. Patient does not have defibrillator card so further information is not accessible at the moment. She does not report any shocks to me from the device. Patient seems to have had a mechanical fall and has sustained a left shoulder and left hip fractures. Preoperative cardiac assessment is requested. Patient reports good functional capacity prior to the fracture. She was able to ambulate without chest pain or dyspnea. She is easily able to do more than 4 mets in terms of daily activities. Presently she denies any chest pain or dyspnea or orthopnea. Former smoker. Quit 1996. Reports cataract surgeries No major family is reported. Past Medical History Cardiac Medical History: Reports: Congestive Heart Failure, Coronary Artery Disease, Hyperlipidema, Hypertension Pulmonary Medical History: Reports: Chronic Obstructive Pulmonary Disease (COPD), Respiratory Failure EENT Medical History: Reports: None Neurological Medical History: Reports: Hemorrhagic CVA Endocrine Medical History: Reports: Diabetes Mellitus Type 2, Hypothyroidism Renal/ Medical History: Reports: None Malignancy Medical History: Reports: Breast Cancer GI Medical History: Reports: Gastroesophageal Reflux Disease Musculoskeltal Medical History: Reports: Arthritis Psychiatric Medical History: Reports: None Traumatic Medical History: Reports: None Infectious Medical History: Reports: None Past Surgical History Past Surgical History: Reports: Appendectomy, Cardiac Catheterization, Cholecystectomy, Coronary Stent Social History Lives with: Family Smoking Status: Former Smoker Electronic Cigarette use?: Yes Frequency of Alcohol Use: None Hx Recreational Drug Use: No Drugs: None Hx Prescription Drug Abuse: No - Advance Directive Resuscitation Status: Full Code Family History Family History: None Parental Family History Reviewed: No - No familial illnesses Children Family History Reviewed: NA Sibling(s) Family History Reviewed.: NA Medication/Allergy Home Medications: Acetaminophen 500 mg PO PRN PRN 11/26/19 Bacillus Coagulans [Digestive Advantage] 1 each PO QAM 11/26/19 Budesonide/Formoterol Fumarate [Symbicort Hfa 160-4.5 Mcg Inhaler 6 gm] 2 puff IH Q12 11/26/19 Cholecalciferol (Vitamin D3) [Vitamin D3 1000 Unit Tablet] 1,000 unit PO QAM 11/26/19 Cyanocobalamin (Vitamin B-12) [Vitamin B-12] 1,000 mcg PO QAM 11/26/19 Escitalopram Oxalate [Lexapro] 20 mg PO QHS 11/26/19 Folic Acid 0.8 mg PO QAM 11/26/19 Isosorbide Mononitrate [Imdur 30 mg Tablet.er] 30 mg PO BID 11/26/19 Levothyroxine Sodium [Synthroid 0.05 mg Tablet] 0.05 mg PO Q6AM 11/26/19 Losartan Potassium [Cozaar 25 mg Tablet] 25 mg PO QAM 11/26/19 Lutein [Natural Lutein] 20 mg PO QAM 11/26/19 Metoprolol Succinate [Toprol Xl 50 mg Tab.sr] 50 mg PO QAM 11/26/19 Nitroglycerin [Nitrostat 0.4 mg (1/150 Gr) Tabs 25/Bottle] 1 tab SL Q5MP PRN 11/26/19 Oxybutynin Chloride [Ditropan 5 Mg Tablet] 5 mg PO BID 11/26/19 Ranolazine [Ranexa 500 mg Tab.sr] 500 mg PO Q12 11/26/19 Tiotropium [place] [Spiriva Respimat] 2 puff IH BID 11/26/19 Allergies/Adverse Reactions: Penicillins Allergy (Intermediate, Verified 11/26/19 14:20) atropine [From ] Allergy (Unknown, Verified 11/26/19 14:18) hyoscyamine [From ] Allergy (Unknown, Verified 11/26/19 14:18) phenobarbital [From ] Allergy (Unknown, Verified 11/26/19 14:18) scopolamine [From ] Allergy (Unknown, Verified 11/26/19 14:18) codeine Allergy (Verified 07/24/19 14:17) morphine Allergy (Verified 11/26/19 10:58) nitrofurantoin Allergy (Verified 11/26/19 10:58) Jzzvesl-Meo-Iks Reductase Inhibitor Allergy (Verified 11/26/19 10:58) Sulfa (Sulfonamide Antibiotics) Allergy (Verified 07/24/19 14:17) Review of Systems Constitutional: PRESENT: as per HPI Nose, Mouth, and Throat: PRESENT: as per HPI Cardiovascular: PRESENT: as per HPI Musculoskeletal: PRESENT: as per HPI Physical Exam Vital Signs: Temp Pulse Resp BP Pulse Ox 97.2 F 106 H 25 H 145/83 H 94 11/26/19 17:10 11/26/19 17:10 11/26/19 17:10 11/26/19 17:10 11/26/19 18:15 Pulse Oximeter Continuous Start: 11/26/19 14:10 Freq: RTQ4 Status: Active Protocol: Document 11/26/19 16:00 [facility] (Rec: 11/26/19 18:58 [facility] [id number]) Pulse Oximetry Assessment Oxygen Saturation (92-100) 96 Oxygen Flow Rate (L/min) 4 Oxygen Delivery Method Nasal Cannula Fraction of Inspired Oxygen (FIO2) 36 Equipment Usage Initial Set Up Continuous Pulse Oximeter 24 Hour Charge Charge Now Continuous SpO2 Machine # N3 Intake & Output 11/25/19 11/26/19 11/27/19 06:59 06:59 06:59 Intake Total 1550 Output Total 200 Balance 1350 Weight 49.895 kg General appearance: PRESENT: no acute distress, cooperative, thin Head exam: PRESENT: atraumatic, normocephalic Eye exam: PRESENT: EOMI Mouth exam: PRESENT: moist Respiratory exam: PRESENT: decreased breath sounds, symmetrical, unlabored Cardiovascular exam: PRESENT: RRR, +S1, +S2, tachycardia, other - Left chest wall ICD pocket well-healed scar. No edema erythema or excoriation. Site is nontender. Pulses: PRESENT: normal radial pulses GI/Abdominal exam: PRESENT: soft Rectal exam: PRESENT: deferred Neurological exam: PRESENT: alert, awake, oriented to person, oriented to place, oriented to time, oriented to situation Psychiatric exam: PRESENT: appropriate affect Skin exam: PRESENT: dry, intact, normal color Results Laboratory Results: 11/26/19 09:20 11/26/19 09:20 11/26/19 11/26/19 11/26/19 09:20 09:20 10:46 WBC 24.9 H RBC 3.48 L Hgb 9.3 L Hct 29.8 L MCV 86 MCH 26.6 L MCHC 31.1 L RDW 17.1 H Plt Count 302 Seg Neutrophils % Not Reportable Carbonic Acid HCO3/H2CO3 Ratio ABG pH ABG pCO2 ABG pO2 ABG HCO3 ABG O2 Saturation ABG Base Excess VBG pH 7.21 L VBG pCO2 94.8 H* VBG HCO3 37.2 H VBG Base Excess 5.5 FiO2 Sodium 139.0 Potassium 4.8 Chloride 94 L Carbon Dioxide 37 H Anion Gap 8 BUN 24 H Creatinine 0.88 Est GFR ( Amer) > 60 Glucose 263 H Lactic Acid Calcium 9.7 Total Bilirubin 0.5 AST 68 H Alkaline Phosphatase 336 H Total Protein 6.7 Albumin 3.4 L Urine Color Urine Appearance Urine pH Ur Specific [place] Urine Protein Urine Glucose (UA) Urine Ketones Urine Blood Urine Nitrite Ur Leukocyte Esterase Urine WBC (Auto) Urine RBC (Auto) 11/26/19 11/26/19 11/26/19 10:46 12:57 13:45 WBC RBC Hgb Hct MCV MCH MCHC RDW Plt Count Seg Neutrophils % Carbonic Acid HCO3/H2CO3 Ratio ABG pH ABG pCO2 ABG pO2 ABG HCO3 ABG O2 Saturation ABG Base Excess VBG pH VBG pCO2 VBG HCO3 VBG Base Excess FiO2 Sodium Potassium Chloride Carbon Dioxide Anion Gap BUN Creatinine Est GFR ( Amer) Glucose Lactic Acid 2.9 H 1.6 Calcium Total Bilirubin AST Alkaline Phosphatase Total Protein Albumin Urine Color YELLOW Urine Appearance CLEAR Urine pH 6.0 Ur Specific [place] 1.015 Urine Protein 30 H Urine Glucose (UA) NEGATIVE Urine Ketones NEGATIVE Urine Blood NEGATIVE Urine Nitrite NEGATIVE Ur Leukocyte Esterase NEGATIVE Urine WBC (Auto) 1 Urine RBC (Auto) 1 11/26/19 11/26/19 16:15 16:55 WBC RBC Hgb Hct MCV MCH MCHC RDW Plt Count Seg Neutrophils % Carbonic Acid 1.94 H HCO3/H2CO3 Ratio 16:1 ABG pH 7.31 L ABG pCO2 64.3 H ABG pO2 67.9 L ABG HCO3 31.6 H ABG O2 Saturation 91.3 L ABG Base Excess 4.3 VBG pH VBG pCO2 VBG HCO3 VBG Base Excess FiO2 35% Sodium Potassium Chloride Carbon Dioxide Anion Gap BUN Creatinine Est GFR ( Amer) Glucose Lactic Acid 1.6 Calcium Total Bilirubin AST Alkaline Phosphatase Total Protein Albumin Urine Color Urine Appearance Urine pH Ur Specific [place] Urine Protein Urine Glucose (UA) Urine Ketones Urine Blood Urine Nitrite Ur Leukocyte Esterase Urine WBC (Auto) Urine RBC (Auto) 11/26/19 11/26/19 11/26/19 09:20 15:23 19:04 Troponin I 0.025 0.194 0.197 NT-Pro-B Natriuret Pep 1770 H EKG Comments: Twelve-lead EKG independently reviewed by me. Sinus tachycardia, left ventricular hypertrophy with repolarization abnormality, left anterior fascicular block, QTC within normal limits Telemetry presently shows sinus tachycardia at about 110 bpm Impressions: Hip X-Ray 11/26/19 00:00 IMPRESSION: Intertrochanteric fracture left femoral neck. Humerus X-Ray 11/26/19 00:00 IMPRESSION: Fracture of the surgical neck extending into the anatomic neck. Chest X-Ray 11/26/19 09:36 IMPRESSION: Bilateral pneumonia or asymmetric edema. Status: Image reviewed by me Assessment & Plan - Diagnosis (1) Preop cardiovascular exam Plan: Patient is an acceptable risk for planned surgery i.e. left hip repair without further re-stratification or work-up. Patient has coronary artery disease and has been revascularized surgically recently. She does not report symptoms suggestive of ischemia or poor effort tolerance. She is functionally quite active prior to the fall. Would recommend proceeding with surgery with usual precautions. Have to minimize myocardial oxygen consumption given history of coronary artery disease. Avoid blood pressure fluctuations and volume overloading. It is reported to me that the patient's left ventricular ejection fraction was depressed. Can obtain a transthoracic echocardiogram. However this will unlikely impact the surgery (2) CAD (coronary artery disease) Qualifiers: Coronary Disease-Associated Artery/Lesion type: unspecified vessel or lesion type Associated angina: without angina Is this a current diagnosis for this admission?: Yes Plan: Continue guideline directed medical therapy for coronary artery disease as feasible. No active symptoms of ischemia Re-stratification is not necessary prior to surgery. Indeterminate troponins. (3) ICD (implantable cardioverter-defibrillator) in place Is this a current diagnosis for this admission?: Yes Plan: ICD in place. [employer]
[2019-11-26] MEDS: IPRATROPIUM/ALBUTEROL 0.5-2.5 MG/3 ML AMPUL NEB SCH (20:47)
[2019-11-26] MEDS: GABAPENTIN 100 MG CAPSULE PO SCH (21:25)
[2019-11-26] MEDS: RANOLAZINE 500 MG TAB.SR.12H PO SCH (21:25)
[2019-11-26] MEDS: GUAIFENESIN 600 MG TABLET.SA PO SCH (21:26)
[2019-11-26] MEDS: FAMOTIDINE 20 MG TABLET PO SCH (21:26)
[2019-11-26] MEDS: ESCITALOPRAM OXALATE 10 MG TABLET PO SCH (21:26)
[2019-11-26] MEDS ORDERED: HEPARIN SOD (PORCINE) 5,000 UNIT/ML 1 ML VIAL SUBCUT SCH (22:00)
[2019-11-26] MEDS: KETOROLAC TROMETHAMINE INJ/PF 30 MG/1 ML SDV IV PRN (23:24)
[2019-11-27] MEDS ORDERED: ASPIRIN 81 MG TABLET, CHEWABLE PO ONE (01:55)
[2019-11-27] MEDS ORDERED: NORMAL SALINE 250 ML IV PRN ×2 (01:55)
[2019-11-27] MEDS: IPRATROPIUM/ALBUTEROL 0.5-2.5 MG/3 ML AMPUL NEB SCH ×4 (02:02→20:53)
[2019-11-27] MEDS ORDERED: ASPIRIN 325 MG TABLET ONE (02:14)
[2019-11-27] MEDS: NORMAL SALINE 1000 ML 1,000 ML IV PRN ×2 (03:21→19:52)
[2019-11-27] MEDS: HYDROMORPHONE HCL INJ/PF 2 MG/ML AMPULE IV PRN ×2 (03:57→11:05)
--- NOTE | 2019-11-27 05:17 | Operative Report ---
Nonrecallable Operative Report DATE OF SURGERY: 11/27/19 PREOPERATIVE DIAGNOSIS: Need of IV access POSTOPERATIVE DIAGNOSIS: Same OPERATION: Basement of right subclavian vein triple-lumen central venous catheter SURGEON: SENTHIL GUNDERSON ANESTHESIA: Local - 15 mL 1% lidocaine TISSUE REMOVED OR ALTERED: None COMPLICATIONS: None ESTIMATED BLOOD LOSS: Less than 5 mL INTRAOPERATIVE FINDINGS: As above PROCEDURE: The procedure was done at bedside: The patient was placed in a supine position, the patient neck and chest were prepped and draped in the usual fashion. The midportion of the right clavicle and just below it was infiltrated with lidocaine, a 16-gauge needle was then used to cannulate the right subclavian without difficulty with good blood return; a guidewire was inserted through the needle into the subclavian vein vein without difficulty the needle was removed. The insertion point of the guidewire was enlarged with a #11 blade and a tissue dilator which was then removed. A triple-lumen catheter was inserted without difficulty over the guidewire into the right subclavian vein without difficulty up to 16 cm, the guidewire was removed. Each port was aspirated and flushed with normal saline without difficulty. The catheter was secured to the skin with 3-0 nylon sutures and sterile dressing applied. The patient tolerated the procedure well and portable chest-ray was obtained to confirm good position of the line.
[2019-11-27] MEDS: GABAPENTIN 100 MG CAPSULE PO SCH ×3 (06:25→22:41)
[2019-11-27] MEDS: LEVOTHYROXINE SODIUM 0.05 MG TABLET PO SCH (06:25)
--- NOTE | 2019-11-27 06:37 | RADIOLOGY REPORT (SQ) ---
Chest single view on 11/27/2019 at 5:32 AM CLINICAL INDICATION: Central line placement COMPARISON: 11/26/2019 FINDINGS: Right subclavian catheter tip is in the right atrium. There is no pneumothorax. The patient is status post median sternotomy and CABG. Multilead left subclavian AICD device is noted in place. There are multiple wires projecting over the chest. There is elevation of the right hemidiaphragm. There has been improvement in bilateral opacities consistent with improving edema and/or pneumonia. IMPRESSION: Improving bilateral edema and/or pneumonia.
--- NOTE | 2019-11-27 07:43 | PDOC PROGRESS REPORT ---
Subjective Progress Note for:: 11/27/19 Subjective:: Patient doing well this AM. No acute events overnight. No new complaints. Pain well controlled on current management. Reason For Visit: PNEUMONIA Physical Exam Vital Signs: Temp Pulse Resp BP Pulse Ox 97.8 F 103 H 16 96/66 L 97 11/27/19 07:16 11/27/19 07:16 11/27/19 07:16 11/27/19 07:16 11/27/19 06:16 Pulse Oximeter Continuous Start: 11/26/19 14:10 Freq: RTQ4 Status: Active Protocol: Document 11/27/19 04:00 [facility] (Rec: 11/27/19 05:07 [facility] [id number]) Pulse Oximetry Assessment Oxygen Saturation (92-100) 96 Oxygen Flow Rate (L/min) 4 Oxygen Delivery Method Nasal Cannula Equipment Usage Equipment in Use Continuous SpO2 Machine # 3 Intake & Output 11/26/19 11/27/19 11/28/19 06:59 06:59 06:59 Intake Total 2970 Output Total 550 Balance 2420 Weight 53.3 kg Physical Exam: -Pulses 2+ distally -Compartments soft - Pain with any motion of the left hip -Sensation grossly intact to L3-4-5 S1 -Motor grossly intact to EHL TA gastroc and quad Results Laboratory Results: 11/26/19 09:20 11/26/19 09:20 11/26/19 11/26/19 11/26/19 09:20 09:20 10:46 WBC 24.9 H RBC 3.48 L Hgb 9.3 L Hct 29.8 L MCV 86 MCH 26.6 L MCHC 31.1 L RDW 17.1 H Plt Count 302 Seg Neutrophils % Not Reportable Carbonic Acid HCO3/H2CO3 Ratio ABG pH ABG pCO2 ABG pO2 ABG HCO3 ABG O2 Saturation ABG Base Excess VBG pH 7.21 L VBG pCO2 94.8 H* VBG HCO3 37.2 H VBG Base Excess 5.5 FiO2 Sodium 139.0 Potassium 4.8 Chloride 94 L Carbon Dioxide 37 H Anion Gap 8 BUN 24 H Creatinine 0.88 Est GFR ( Amer) > 60 Glucose 263 H Lactic Acid Calcium 9.7 Total Bilirubin 0.5 AST 68 H Alkaline Phosphatase 336 H Total Protein 6.7 Albumin 3.4 L Urine Color Urine Appearance Urine pH Ur Specific [place] Urine Protein Urine Glucose (UA) Urine Ketones Urine Blood Urine Nitrite Ur Leukocyte Esterase Urine WBC (Auto) Urine RBC (Auto) Blood Type Antibody Screen 11/26/19 11/26/19 11/26/19 10:46 12:57 13:45 WBC RBC Hgb Hct MCV MCH MCHC RDW Plt Count Seg Neutrophils % Carbonic Acid HCO3/H2CO3 Ratio ABG pH ABG pCO2 ABG pO2 ABG HCO3 ABG O2 Saturation ABG Base Excess VBG pH VBG pCO2 VBG HCO3 VBG Base Excess FiO2 Sodium Potassium Chloride Carbon Dioxide Anion Gap BUN Creatinine Est GFR ( Amer) Glucose Lactic Acid 2.9 H 1.6 Calcium Total Bilirubin AST Alkaline Phosphatase Total Protein Albumin Urine Color YELLOW Urine Appearance CLEAR Urine pH 6.0 Ur Specific [place] 1.015 Urine Protein 30 H Urine Glucose (UA) NEGATIVE Urine Ketones NEGATIVE Urine Blood NEGATIVE Urine Nitrite NEGATIVE Ur Leukocyte Esterase NEGATIVE Urine WBC (Auto) 1 Urine RBC (Auto) 1 Blood Type Antibody Screen 11/26/19 11/26/19 11/27/19 16:15 16:55 02:12 WBC RBC Hgb Hct MCV MCH MCHC RDW Plt Count Seg Neutrophils % Carbonic Acid 1.94 H HCO3/H2CO3 Ratio 16:1 ABG pH 7.31 L ABG pCO2 64.3 H ABG pO2 67.9 L ABG HCO3 31.6 H ABG O2 Saturation 91.3 L ABG Base Excess 4.3 VBG pH VBG pCO2 VBG HCO3 VBG Base Excess FiO2 35% Sodium Potassium Chloride Carbon Dioxide Anion Gap BUN Creatinine Est GFR ( Amer) Glucose Lactic Acid 1.6 Calcium Total Bilirubin AST Alkaline Phosphatase Total Protein Albumin Urine Color Urine Appearance Urine pH Ur Specific [place] Urine Protein Urine Glucose (UA) Urine Ketones Urine Blood Urine Nitrite Ur Leukocyte Esterase Urine WBC (Auto) Urine RBC (Auto) Blood Type A POSITIVE Antibody Screen NEGATIVE 11/26/19 11/26/19 11/26/19 09:20 15:23 19:04 Troponin I 0.025 0.194 0.197 NT-Pro-B Natriuret Pep 1770 H 11/27/19 00:20 Troponin I 0.237 NT-Pro-B Natriuret Pep Impressions: Hip X-Ray 11/26/19 00:00 IMPRESSION: Intertrochanteric fracture left femoral neck. Humerus X-Ray 11/26/19 00:00 IMPRESSION: Fracture of the surgical neck extending into the anatomic neck. Chest X-Ray 11/27/19 00:00 IMPRESSION: Improving bilateral edema and/or pneumonia. Assessment & Plan - Diagnosis (1) Closed intertrochanteric fracture of left hip Qualifiers: Encounter type: initial encounter Fracture alignment: nondisplaced Qualified Code(s): S72.145A - Nondisplaced intertrochanteric fracture of left femur, initial encounter for closed fracture Is this a current diagnosis for this admission?: Yes Plan: - Plan for OR this afternoon - Keep NPO - Hold chemical anticoagulation - Bedrest (2) Closed fracture of left proximal humerus Qualifiers: Encounter type: initial encounter Fracture morphology: unspecified fracture morphology Qualified Code(s): S42.202A - Unspecified fracture of upper end of left humerus, initial encounter for closed fracture Is this a current diagnosis for this admission?: Yes Plan: - Continue sling - Time Time Spent with patient: Less than 15 minutes
[2019-11-27] MEDS ORDERED: (PENDING PHARMACY ID) (Folic Acid [Folic Acid] 0.8 MG) PO SCH (08:00)
[2019-11-27] MEDS: FOLIC ACID 1 MG TABLET PO SCH (08:26)
[2019-11-27] MEDS: METOPROLOL SUCCINATE 50 MG TAB.SR.24H PO SCH (08:26)
[2019-11-27] MEDS: LOSARTAN POTASSIUM 25 MG TABLET PO SCH (08:26)
[2019-11-27] MEDS ORDERED: CEFTRIAXONE 1 GM/D5W RTU 1 GM/50 ML RTUPB IV SCH (10:00)
--- NOTE | 2019-11-27 10:12 | EKG REPORT ---
SEVERITY:- ABNORMAL ECG - SINUS TACHYCARDIA LEFT ANTERIOR FASCICULAR BLOCK PROBABLE LEFT VENTRICULAR HYPERTROPHY CONSIDER ANTERIOR INFARCT : Confirmed by: Krystal Gonzalez MD 27-Nov-2019 10:11:44
--- NOTE | 2019-11-27 10:49 | PDOC PROGRESS REPORT ---
Subjective Progress Note for:: 11/27/19 Subjective:: Patient seen and examined. Comfortable and rousable. Stilly drowsy( pain medications?) Right subclavian TLC placed for difficult venous access last night by surgery Also received 1 U PRBC Reason For Visit: PNEUMONIA Physical Exam Vital Signs: Temp Pulse Resp BP Pulse Ox 98.7 F 98 16 100/67 97 11/27/19 09:16 11/27/19 09:16 11/27/19 09:16 11/27/19 09:16 11/27/19 09:16 Pulse Oximeter Continuous Start: 11/26/19 14:10 Freq: RTQ4 Status: Active Protocol: Document 11/27/19 08:48 [facility] (Rec: 11/27/19 08:51 [facility] [id number]) Pulse Oximetry Assessment Oxygen Saturation (92-100) 100 Oxygen Flow Rate (L/min) 3 Oxygen Delivery Method Nasal Cannula Fraction of Inspired Oxygen (FIO2) 32 Equipment Usage Equipment in Use Continuous SpO2 Machine # 3 Intake & Output 11/26/19 11/27/19 11/28/19 06:59 06:59 06:59 Intake Total 2970 305 Output Total 550 Balance 2420 305 Weight 53.3 kg General appearance: PRESENT: no acute distress, cooperative, hard of hearing Head exam: PRESENT: atraumatic, normocephalic Mouth exam: PRESENT: moist Respiratory exam: PRESENT: clear to auscultation elsa, symmetrical, unlabored Cardiovascular exam: PRESENT: RRR, +S1, +S2 Pulses: PRESENT: normal radial pulses Rectal exam: PRESENT: deferred Skin exam: PRESENT: dry Results Laboratory Results: 11/26/19 09:20 11/26/19 09:20 11/26/19 11/26/19 11/26/19 10:46 10:46 12:57 Carbonic Acid HCO3/H2CO3 Ratio ABG pH ABG pCO2 ABG pO2 ABG HCO3 ABG O2 Saturation ABG Base Excess VBG pH 7.21 L VBG pCO2 94.8 H* VBG HCO3 37.2 H VBG Base Excess 5.5 FiO2 Lactic Acid 2.9 H Urine Color YELLOW Urine Appearance CLEAR Urine pH 6.0 Ur Specific [place] 1.015 Urine Protein 30 H Urine Glucose (UA) NEGATIVE Urine Ketones NEGATIVE Urine Blood NEGATIVE Urine Nitrite NEGATIVE Ur Leukocyte Esterase NEGATIVE Urine WBC (Auto) 1 Urine RBC (Auto) 1 Blood Type Antibody Screen 11/26/19 11/26/19 11/26/19 13:45 16:15 16:55 Carbonic Acid 1.94 H HCO3/H2CO3 Ratio 16:1 ABG pH 7.31 L ABG pCO2 64.3 H ABG pO2 67.9 L ABG HCO3 31.6 H ABG O2 Saturation 91.3 L ABG Base Excess 4.3 VBG pH VBG pCO2 VBG HCO3 VBG Base Excess FiO2 35% Lactic Acid 1.6 1.6 Urine Color Urine Appearance Urine pH Ur Specific [place] Urine Protein Urine Glucose (UA) Urine Ketones Urine Blood Urine Nitrite Ur Leukocyte Esterase Urine WBC (Auto) Urine RBC (Auto) Blood Type Antibody Screen 11/27/19 02:12 Carbonic Acid HCO3/H2CO3 Ratio ABG pH ABG pCO2 ABG pO2 ABG HCO3 ABG O2 Saturation ABG Base Excess VBG pH VBG pCO2 VBG HCO3 VBG Base Excess FiO2 Lactic Acid Urine Color Urine Appearance Urine pH Ur Specific [place] Urine Protein Urine Glucose (UA) Urine Ketones Urine Blood Urine Nitrite Ur Leukocyte Esterase Urine WBC (Auto) Urine RBC (Auto) Blood Type A POSITIVE Antibody Screen NEGATIVE 11/26/19 11/26/19 11/26/19 09:20 15:23 19:04 Troponin I 0.025 0.194 0.197 NT-Pro-B Natriuret Pep 1770 H 11/27/19 00:20 Troponin I 0.237 NT-Pro-B Natriuret Pep Impressions: Hip X-Ray 11/26/19 00:00 IMPRESSION: Intertrochanteric fracture left femoral neck. Humerus X-Ray 11/26/19 00:00 IMPRESSION: Fracture of the surgical neck extending into the anatomic neck. Chest X-Ray 11/27/19 00:00 IMPRESSION: Improving bilateral edema and/or pneumonia. Assessment & Plan - Diagnosis (1) Preop cardiovascular exam Plan: Acceptable risk for surgery without risk stratification (2) CAD (coronary artery disease) Qualifiers: Coronary Disease-Associated Artery/Lesion type: unspecified vessel or lesion type Associated angina: without angina Is this a current diagnosis for this admission?: Yes Plan: No ischemic symptoms GDMT for CAD (3) ICD (implantable cardioverter-defibrillator) in place Is this a current diagnosis for this admission?: Yes Plan: Site looked WNL
[2019-11-27] MEDS: RANOLAZINE 500 MG TAB.SR.12H PO SCH ×2 (11:04→22:41)
[2019-11-27] MEDS: ISOSORBIDE MONONITRATE 30 MG TAB.ER.24H PO SCH ×2 (11:05→19:55)
[2019-11-27] MEDS: FAMOTIDINE 20 MG TABLET PO SCH ×2 (11:05→22:41)
[2019-11-27] MEDS: OXYBUTYNIN CHLORIDE 5 MG TABLET PO SCH ×2 (11:05→19:55)
[2019-11-27] MEDS: GUAIFENESIN 600 MG TABLET.SA PO SCH ×2 (11:05→22:41)
[2019-11-27] MEDS: AZITHROMYCIN 500 MG in DEXTROSE 5%-WATER 250 ML IV SCH (11:21)
[2019-11-27 12:00] LABS: ABSOLUTE BASOPHILS # (AUTO) 0.1 10^3/uL (0.0-0.2); ABSOLUTE LYMPHOCYTES (AUTO) 1.7 10^3/uL (0.5-4.7); ABSOLUTE NEUT (AUTO) 10.3 10^3/uL (1.7-8.2); BASOPHILS % (AUTO) 0.4 % (0-2); EOSINOPHILS % (AUTO) 0.1 % (0-6); HEMATOCRIT 29.1 % (36.0-47.0); HEMOGLOBIN 9.2 g/dL (12.0-15.5); LYMPHOCYTES % (AUTO) 11.9 % (13-45); MEAN CORPUSCULAR HEMOGLOBIN 27.9 pg (27.0-33.4); MEAN CORPUSCULAR HGB CONC 31.6 g/dL (32.0-36.0); MEAN CORPUSCULAR VOLUME 88 fl (80-97); MONOCYTES % (AUTO) 14.4 % (3-13); PLATELET COUNT 208 10^3/uL (150-450); RED BLOOD COUNT 3.29 10^6/uL (3.72-5.28); RED CELL DISTRIBUTION WIDTH 17.7 % (11.5-14.0); SEGMENTED NEUTROPHILS % (AUTO) 73.2 % (42-78); TOTAL CELLS COUNTED % (AUTO) 100 %; WHITE BLOOD COUNT 14.1 10^3/uL (4.0-10.5)
[2019-11-27 12:18] LABS: ANION GAP 8 (5-19); BLOOD UREA NITROGEN 40 mg/dL (7-20); CALCIUM 8.7 mg/dL (8.4-10.2); CARBON DIOXIDE 30 mmol/L (22-30); CHLORIDE 99 mmol/L (98-107); GLUCOSE 151 mg/dL (75-110); POTASSIUM 5.6 mmol/L (3.6-5.0)
[2019-11-27] MEDS: KETOROLAC TROMETHAMINE INJ/PF 30 MG/1 ML SDV IV PRN (14:04)
--- NOTE | 2019-11-27 14:10 | PDOC PROGRESS REPORT ---
Subjective Progress Note for:: 11/27/19 Subjective:: NAHID REA is a 74 year old female with a past medical history of CHF, CAD, hypertension, hyperlipidemia, CABG x2, cardiac cath with stents x8, AICD, DM 2, hypothyroidism, and oxygen dependent COPD who was admitted 11/26/2027 for left hip fracture, sepsis and acute on chronic respiratory failure with hypercapnia secondary to pneumonia and COPD exacerbation. Patient was seen on morning rounds with her daughter present. She was found resting in bed, comfortably, on supplemental oxygen via nasal cannula at 4 L/min. She utilizes 3 L/min at baseline. The patient was sleeping soundly; I did not make attempts to wake her as she is just received pain medication immediately prior to my arrival. Patient's daughter reports that she is rested comfortably with adequately controlled pain. Daughter also reports decreased dyspnea and cough. ROS is otherwise limited. Daughter has no questions or concerns at this time. Nursing reports decreased urinary output. Reason For Visit: PNEUMONIA Physical Exam Vital Signs: Temp Pulse Resp BP Pulse Ox 97.4 F 101 H 14 94/53 L 100 11/27/19 12:12 11/27/19 12:12 11/27/19 12:12 11/27/19 12:12 11/27/19 12:12 Pulse Oximeter Continuous Start: 11/26/19 14:10 Freq: RTQ4 Status: Active Protocol: Document 11/27/19 11:57 LDA (Rec: 11/27/19 11:57 LDA [id number]) Pulse Oximetry Assessment Oxygen Saturation (92-100) 98 Oxygen Flow Rate (L/min) 3 Oxygen Delivery Method Nasal Cannula Fraction of Inspired Oxygen (FIO2) 32 Equipment Usage Equipment in Use Continuous SpO2 Machine # 3 Intake & Output 11/26/19 11/27/19 11/28/19 06:59 06:59 06:59 Intake Total 2970 605 Output Total 550 Balance 2420 605 Weight 53.3 kg General appearance: PRESENT: no acute distress, cooperative, thin, well- developed Head exam: PRESENT: atraumatic, normocephalic Ear exam: PRESENT: normal external ear exam Mouth exam: PRESENT: dry mucosa, tongue midline Neck exam: ABSENT: carotid bruit, JVD, lymphadenopathy, thyromegaly Respiratory exam: PRESENT: clear to auscultation elsa, prolonged expiratory phas, symmetrical, unlabored, other - Supplemental oxygen via nasal cannula. ABSENT: rales, rhonchi, wheezes Cardiovascular exam: PRESENT: RRR, +S1, +S2. ABSENT: diastolic murmur, rubs, systolic murmur Pulses: PRESENT: normal dorsalis pedis pul Vascular exam: PRESENT: normal capillary refill GI/Abdominal exam: PRESENT: normal bowel sounds, soft. ABSENT: distended, guarding, mass, organolmegaly, rebound, tenderness Rectal exam: PRESENT: deferred Gentrourinary exam: PRESENT: indwelling catheter Extremities exam: PRESENT: other - Left arm to sling; LLE shortened and externally rotated. ABSENT: calf tenderness, clubbing, full ROM, pedal edema Neurological exam: PRESENT: CN II-XII grossly intact, other - Sleeping soundly. ABSENT: motor sensory deficit Skin exam: PRESENT: dry, intact, warm. ABSENT: cyanosis, rash Results Laboratory Results: 11/27/19 11:30 11/27/19 11:30 11/26/19 11/26/19 11/26/19 13:45 16:15 16:55 WBC RBC Hgb Hct MCV MCH MCHC RDW Plt Count Seg Neutrophils % Carbonic Acid 1.94 H HCO3/H2CO3 Ratio 16:1 ABG pH 7.31 L ABG pCO2 64.3 H ABG pO2 67.9 L ABG HCO3 31.6 H ABG O2 Saturation 91.3 L ABG Base Excess 4.3 FiO2 35% Sodium Potassium Chloride Carbon Dioxide Anion Gap BUN Creatinine Est GFR ( Amer) Glucose Lactic Acid 1.6 1.6 Calcium Blood Type Antibody Screen 11/27/19 11/27/19 11/27/19 02:12 11:30 11:30 WBC 14.1 H RBC 3.29 L Hgb 9.2 L Hct 29.1 L MCV 88 MCH 27.9 MCHC 31.6 L RDW 17.7 H Plt Count 208 Seg Neutrophils % 73.2 Carbonic Acid HCO3/H2CO3 Ratio ABG pH ABG pCO2 ABG pO2 ABG HCO3 ABG O2 Saturation ABG Base Excess FiO2 Sodium 136.6 L Potassium 5.6 H Chloride 99 Carbon Dioxide 30 Anion Gap 8 BUN 40 H Creatinine 1.63 H Est GFR ( Amer) 38 L Glucose 151 H Lactic Acid Calcium 8.7 Blood Type A POSITIVE Antibody Screen NEGATIVE 11/26/19 11/26/19 11/26/19 09:20 15:23 19:04 Troponin I 0.025 0.194 0.197 NT-Pro-B Natriuret Pep 1770 H 11/27/19 00:20 Troponin I 0.237 NT-Pro-B Natriuret Pep Impressions: Hip X-Ray 11/26/19 00:00 IMPRESSION: Intertrochanteric fracture left femoral neck. Humerus X-Ray 11/26/19 00:00 IMPRESSION: Fracture of the surgical neck extending into the anatomic neck. Chest X-Ray 11/27/19 00:00 IMPRESSION: Improving bilateral edema and/or pneumonia. Assessment and Plan - Diagnosis (1) Acute and chronic respiratory failure with hypercapnia Is this a current diagnosis for this admission?: Yes Plan: Significantly improved; now maintaining oxygen saturations on 4 L/min by nasal cannula. She utilizes 3 L/min continuously at baseline. Multifactorial secondary to pneumonia, COPD exacerbation, opiate pain medications She does not have home CPAP or BiPAP. ABG shows chronic hypercapnia We will continue supplemental oxygen and BiPAP as needed to maintain saturations. Scheduled as needed nebulizer treatments. Patient is empirically placed on antibiotics for treatment of community-acquired pneumonia. Encourage pulmonary toilet. (2) Pneumonia Qualifiers: Pneumonia type: due to unspecified organism Laterality: bilateral Lung location: unspecified part of lung Qualified Code(s): J18.9 - Pneumonia, unspecified organism Is this a current diagnosis for this admission?: Yes Plan: Blood cultures are negative at 24 hours Sputum cultures ordered. Patient is empirically placed on IV azithromycin and Rocephin for treatment of community-acquired pneumonia. Remaining evaluation management as above. (3) CAD (coronary artery disease) Qualifiers: Coronary Disease-Associated Artery/Lesion type: unspecified vessel or lesion type Associated angina: without angina Is this a current diagnosis for this admission?: Yes Plan: The patient has a history of MN, two-vessel bypass, cardiac cath x 8 stents, hypertension, hyperlipidemia, DM 2 EKGs showed sinus tachycardia Initial troponin 0.025-> 0.194-> 0.197-> 0.237. Multifactorial secondary to hypoxia (following administration of IV fentanyl, patient did require BVM support followed byBiPAP), deman ischemia in setting of sepsis and PNA, and troponin leak r/t fall. The patient will be monitored on continuous cardiac telemetry. Antihypertensives as below. Management of acute on chronic respiratory failure is described above. Cardiology services were consulted for preoperative evaluation and recommendations. (4) Hypertension Is this a current diagnosis for this admission?: Yes Plan: Continue the patient's home medication regiment of metoprolol, losartan, isoso rbide, Ranexa Cardiac diet (5) Hyperlipidemia Is this a current diagnosis for this admission?: Yes Plan: Does not appear the patient is on statin therapy. Cardiac diet (6) COPD (chronic obstructive pulmonary disease) Qualifiers: COPD type: unspecified COPD Qualified Code(s): J44.9 - Chronic obstructive pulmonary disease, unspecified Is this a current diagnosis for this admission?: Yes Plan: With exacerbation secondary to pneumonia. Continue supplemental oxygen and BiPAP as needed to maintain oxygen saturations. Scheduled as needed nebulizer treatments. Antibiotics as above. Mucinex twice daily. Encourage pulmonary toilet. (7) Closed fracture of left proximal humerus Qualifiers: Encounter type: initial encounter Fracture morphology: unspecified fracture morphology Qualified Code(s): S42.202A - Unspecified fracture of upper end of left humerus, initial encounter for closed fracture Is this a current diagnosis for this admission?: Yes Plan: Orthopedics is consulted; primary management per Dr. Mcintosh. Analgesics as needed. (8) Closed intertrochanteric fracture of left hip Qualifiers: Encounter type: initial encounter Fracture alignment: nondisplaced Qualified Code(s): S72.145A - Nondisplaced intertrochanteric fracture of left femur, initial encounter for closed fracture Is this a current diagnosis for this admission?: Yes Plan: Orthopedics is consulted; primary management per Dr. Mcintosh. Analgesics as needed. Heparin preoperatively. Postop DVT prophylaxis per orthopedic service. N.p.o. after midnight. Cardiology service consulted for cardiac clearance. (9) Sepsis Qualifiers: Sepsis type: sepsis due to unspecified organism Sepsis acute organ dysfunction status: with acute organ dysfunction Severe sepsis acute organ dysfunction type: acute respiratory failure Acute respiratory failure type: with hypercapnia Severe sepsis shock status: without septic shock Qualified Code(s): A41.9 - Sepsis, unspecified organism; R65.20 - Severe sepsis without septic shock; J96.02 - Acute respiratory failure with hypercapnia Is this a current diagnosis for this admission?: Yes Plan: Improved; lactic acid and vital signs have normalized. Leukocytosis trending down. Sepsis due to community-acquired pneumonia, present on admission, evidenced by tachycardia, tachypnea, hypoxia on baseline oxygen requirement, Leukocytosis, elevated lactic acid and evidence of pneumonia on CXR. Cultures and antibiotics as above. Received appropriate IV fluid resuscitation by ED provider. (10) PIEDAD (acute kidney injury) Is this a current diagnosis for this admission?: Yes Plan: Likely prerenal secondary to sepsis, hypoxia, and dehydration 1 L normal saline bolus. Patient has already been transfused 1 unit PRBC. Continue maintenance IV fluids. Avoid nephrotoxic medications as able. Follow-up chemistry. - Time Time Spent with patient: 25-34 minutes Medications reviewed and adjusted accordingly: Yes Anticipated discharge: SNF Within: within 72 hours
[2019-11-27] MEDS ORDERED: NORMAL SALINE 1000 ML 1,000 ML IV ONE (14:30)
[2019-11-27] MEDS ORDERED: ONDANSETRON HCL INJ/PF 4 MG/2 ML SDV ONE (16:00)
[2019-11-27] MEDS ORDERED: KETAMINE HCL INJ 500 MG/10 ML VIAL ONE (16:00)
[2019-11-27] MEDS ORDERED: FENTANYL CITRATE INJ/PF 100 MCG/2 ML AMPUL ONE ×2 (16:00→18:46)
[2019-11-27] MEDS ORDERED: PROPOFOL INJ 200 MG/20 ML VIAL IV ONE (16:00)
[2019-11-27] MEDS ORDERED: MIDAZOLAM 2 MG/2 ML INJ ONE (16:00)
[2019-11-27] MEDS ORDERED: EPHEDRINE SULFATE INJ 50 MG/1 ML AMPULE ONE (16:00)
[2019-11-27] MEDS ORDERED: LIDOCAINE 1%/EPINEPHRINE INJ 20 ML VIAL ONE ×2 (17:08→17:09)
--- NOTE | 2019-11-27 18:04 | Operative Report ---
Operative Report DATE OF SURGERY: 11/27/19 PREOPERATIVE DIAGNOSIS: Left intertrochanteric hip fracture POSTOPERATIVE DIAGNOSIS: Closed left intertrochanteric hip fracture OPERATION: Left sliding hip screw SURGEON: YEN ZAMORA JR ANESTHESIA: LMAC COMPLICATIONS: None ESTIMATED BLOOD LOSS: 30 cc PROCEDURE: DESCRIPTION OF OPERATION: The patient was brought to the operating room where spinal anesthetic was administered. Once the patient was comfortable, they was transferred over to the fracture table. A Briggs catheter was present at the time prior to operation. The patient is on continuous Rocephin which is adequate for current coverage. The patient was secured onto the fracture table with a boot on the operative leg in a well leg rangel. A perineal post had been placed. The left lower extremity was secured down and longitudinal traction applied through the post. C-arm fluoroscopy was then brought in to check fracture alignment, and with adjustments we obtained near anatomic alignment on AP and lateral views. After appropriate adjustments adequate alignment was obtained. The lateral hip region was then prepped and draped out in the usual sterile fashion. An appropriate timeout was performed. A wire was utilized with fluoroscopy to localize the trajectory of the hip pen. Based off of this a line was drawn to represent the neck angle and are lateral incision was planned. The lateral incision was made followed by Bovie cautery of superficial bleeding. The lateral fascia was approached and dissected with cautery. After this blunt dissection was carried through the deep muscle to bone. The angle guide was placed onto bone and a pin was placed through this and checked with fluoroscopy. The femur was then drilled until we had the appropriate trajectory of the pin at the center of the head on 2 views. We measured this out to be 95 mm. We then reamed to 10 less with a combination reamer and a long barrel. Due to the estimated angle we went with a 135 degree plate. An 85 mm screw was utilized and placed into appropriate position with the assistance of fluoroscopy. A 2 hole plate was selected along with appropriate sized head screw. This was inserted with the assistance of fluoroscopy followed by impaction of the plate against the bone. We then drilled and placed the 2 screws in the plate. George ropriate positioning was confirmed with AP and lateral fluoroscopy. A compression screw was applied to the head screw and then final fluoroscopy's were taken. All the wounds were then copiously irrigated.. The fascial layer was closed with 2-0 Vicryl in a running fashion. Subcutaneous tissue was closed with inverted 3- 0 Monocryl, and the skin was closed with a running 3-0 Monocryl stitch. Valentino mabond was then applied followed by an OpSite dressing. The patient was then carefully transferred off the fracture table onto his hospital bed. The patient tolerated the procedure well and was brought to the recovery room in stable condition.
[2019-11-27] MEDS ORDERED: TRAMADOL HCL 50 MG TABLET PO PRN (18:21)
--- NOTE | 2019-11-27 19:19 | RADIOLOGY REPORT (SQ) ---
EXAM DESCRIPTION: HIP LEFT AP/LATERAL COMPLETED DATE/TIME: 11/27/2019 6:48 pm REASON FOR STUDY: post op COMPARISON: None. NUMBER OF VIEWS: Two view(s). TECHNIQUE: Digital radiographic images of the left hip post-procedure. LIMITATIONS: None. FINDINGS: BONES: No worrisome or unexpected findings post-procedure. DEVICE: Dynamic hip compression screw. SOFT TISSUES: No worrisome findings. Expected postoperative soft tissue changes. IMPRESSION: SATISFACTORY POSTOPERATIVE LEFT HIP. TECHNICAL DOCUMENTATION: JOB ID: [id number] [employer]- All Rights Reserved Reading location - IP/workstation name: [email or web address]
[2019-11-27] MEDS ORDERED: FENTANYL CITRATE INJ/PF 100 MCG/2 ML AMPUL IV PRN (19:43)
[2019-11-27] MEDS ORDERED: CEFAZOLIN INJ 1 GM VIAL IV SCH (22:00)
[2019-11-27] MEDS: OXYCODONE HCL IR 5 MG TABLET PO PRN (22:30)
[2019-11-27] MEDS: CEFAZOLIN SODIUM 1.5 GM in DEXTROSE 5%-WATER 100 ML IV SCH (22:38)
[2019-11-27] MEDS: ACETAMINOPHEN 325 MG TABLET PO SCH ×2 (22:40→23:25)
[2019-11-27] MEDS: ESCITALOPRAM OXALATE 10 MG TABLET PO SCH (22:41)
[2019-11-28] MEDS: KETOROLAC TROMETHAMINE INJ/PF 30 MG/1 ML SDV IV SCH ×3 (01:08→13:11)
[2019-11-28] MEDS: IPRATROPIUM/ALBUTEROL 0.5-2.5 MG/3 ML AMPUL NEB SCH ×4 (02:23→19:58)
[2019-11-28] MEDS ORDERED: NORMAL SALINE 1000 ML 1,000 ML IV ONE ×3 (04:30→17:30)
[2019-11-28] MEDS: LEVOTHYROXINE SODIUM 0.05 MG TABLET PO SCH (05:54)
[2019-11-28] MEDS: ACETAMINOPHEN 325 MG TABLET PO SCH ×3 (05:54→21:31)
[2019-11-28] MEDS: GABAPENTIN 100 MG CAPSULE PO SCH (05:54)
[2019-11-28 05:58] LABS: HEMATOCRIT 26.1 % (36.0-47.0); HEMOGLOBIN 8.2 g/dL (12.0-15.5); MEAN CORPUSCULAR HEMOGLOBIN 28.1 pg (27.0-33.4); MEAN CORPUSCULAR HGB CONC 31.3 g/dL (32.0-36.0); MEAN CORPUSCULAR VOLUME 90 fl (80-97); PLATELET COUNT 142 10^3/uL (150-450); RED BLOOD COUNT 2.91 10^6/uL (3.72-5.28); RED CELL DISTRIBUTION WIDTH 17.4 % (11.5-14.0); WHITE BLOOD COUNT 11.4 10^3/uL (4.0-10.5)
[2019-11-28] MEDS: CEFAZOLIN SODIUM 1.5 GM in DEXTROSE 5%-WATER 100 ML IV SCH ×3 (06:05→21:31)
[2019-11-28 06:28] LABS: ANION GAP 10 (5-19); BLOOD UREA NITROGEN 46 mg/dL (7-20); CALCIUM 8.3 mg/dL (8.4-10.2); CARBON DIOXIDE 24 mmol/L (22-30); CHLORIDE 104 mmol/L (98-107); GLUCOSE 132 mg/dL (75-110); POTASSIUM 5.8 mmol/L (3.6-5.0)
[2019-11-28] MEDS ORDERED: NORMAL SALINE 500 ML IV ONE (06:30)
--- NOTE | 2019-11-28 07:29 | PDOC PROGRESS REPORT ---
Subjective Progress Note for:: 11/28/19 Subjective:: The patient had no acute events overnight however, she was hypotensive in spite of multiple boluses and general avoidance of narcotics. She is lethargic at this time but arousable. Pain is well controlled on Tylenol and Toradol. Reason For Visit: PNEUMONIA Physical Exam Vital Signs: Temp Pulse Resp BP Pulse Ox 97.7 F 94 13 89/69 L 100 11/28/19 04:06 11/28/19 06:00 11/28/19 04:06 11/28/19 06:00 11/28/19 06:00 Pulse Oximeter Continuous Start: 11/26/19 14:10 Freq: RTQ4 Status: Active Protocol: Document 11/28/19 04:20 [facility] (Rec: 11/28/19 04:29 [facility] [email or web address]) Pulse Oximetry Assessment Oxygen Saturation (92-100) 97 Oxygen Flow Rate (L/min) 3 Oxygen Delivery Method Nasal Cannula Fraction of Inspired Oxygen (FIO2) 32 Equipment Usage Equipment in Use Continuous SpO2 Machine # 3 Intake & Output 11/27/19 11/28/19 11/29/19 06:59 06:59 06:59 Intake Total 2970 4805 Output Total 550 230 Balance 2420 4575 Weight 53.3 kg 56.4 kg Physical Exam: -Pulses 2+ distally -Compartments soft -Wound clean dry and intact no drainage in appropriate swelling for postop day 1 -Sensation grossly intact to L3-4-5 S1 -Motor grossly intact to EHL TA gastroc and quad Results Laboratory Results: 11/28/19 05:42 11/28/19 05:42 11/27/19 11/27/19 11/28/19 11:30 11:30 05:42 WBC 14.1 H 11.4 H RBC 3.29 L 2.91 L Hgb 9.2 L 8.2 L Hct 29.1 L 26.1 L MCV 88 90 MCH 27.9 28.1 MCHC 31.6 L 31.3 L RDW 17.7 H 17.4 H Plt Count 208 142 L Seg Neutrophils % 73.2 Sodium 136.6 L Potassium 5.6 H Chloride 99 Carbon Dioxide 30 Anion Gap 8 BUN 40 H Creatinine 1.63 H Est GFR ( Amer) 38 L Glucose 151 H Calcium 8.7 11/28/19 05:42 WBC RBC Hgb Hct MCV MCH MCHC RDW Plt Count Seg Neutrophils % Sodium 138.1 Potassium 5.8 H Chloride 104 Carbon Dioxide 24 Anion Gap 10 BUN 46 H Creatinine 2.08 H Est GFR ( Amer) 28 L Glucose 132 H Calcium 8.3 L 11/26/19 11/26/19 11/26/19 09:20 15:23 19:04 Troponin I 0.025 0.194 0.197 NT-Pro-B Natriuret Pep 1770 H 11/27/19 00:20 Troponin I 0.237 NT-Pro-B Natriuret Pep Impressions: Humerus X-Ray 11/26/19 00:00 IMPRESSION: Fracture of the surgical neck extending into the anatomic neck. Chest X-Ray 11/27/19 00:00 IMPRESSION: Improving bilateral edema and/or pneumonia. Assessment & Plan - Diagnosis (1) Closed intertrochanteric fracture of left hip Qualifiers: Encounter type: initial encounter Fracture alignment: nondisplaced Qualified Code(s): S72.145A - Nondisplaced intertrochanteric fracture of left femur, initial encounter for closed fracture Is this a current diagnosis for this admission?: Yes Plan: - 2 doses of Ancef postoperatively q 8 hours -Weightbearing as tolerated, no precautions, encourage out of bed YULIET for ADL training - PT/OT -aspirin 325 daily for DVT prophylaxis for 6 weeks -multimodal pain management to avoid excessive narcotics, including gabapentin, tramadol, Toradol, acetaminophen. May need to hold tramadol due to increased creatinine Encourage out of bed -Dressing should not be removed for 7 to 10 days until seen in the office -May shower with the dressing intact, if it starts to come off she should not get the incision wet. -I would like to follow the patient my office within the next 7 to [address] at [address] [place] [address]. in [place] office #: [phone] (2) Closed fracture of left proximal humerus Qualifiers: Encounter type: initial encounter Fracture morphology: unspecified fracture morphology Qualified Code(s): S42.202A - Unspecified fracture of upper end of left humerus, initial encounter for closed fracture Is this a current diagnosis for this admission?: Yes Plan: Sling for comfort, nonweightbearing left upper extremity - Time Time Spent with patient: Less than 15 minutes
[2019-11-28] MEDS ORDERED: NORMAL SALINE 1000 ML 1,000 ML IV PRN ×3 (07:37→16:19)
[2019-11-28] MEDS ORDERED: SODIUM POLYSTYRENE SULFONATE 15 GM/60 ML PO ONE (08:30)
[2019-11-28] MEDS: FOLIC ACID 1 MG TABLET PO SCH (08:45)
--- NOTE | 2019-11-28 09:05 | RADIOLOGY REPORT (SQ) ---
EXAM DESCRIPTION: NO CHG FLUORO; HIP LEFT AP/LATERAL COMPLETED DATE/TIME: 11/27/2019 9:04 pm REASON FOR STUDY: LT HIP SCREW IN THE OR COMPARISON: None. FLUOROSCOPY TIME: 0.6 minutes 2 images saved to PACS. TECHNIQUE: Intra-operative images acquired during surgical procedure to evaluate progress. NUMBER OF IMAGES: 2 LIMITATIONS: None. FINDINGS: Fluoroscopic images from hip compression screw fixation in the operating room. IMPRESSION: IMAGE(S) OBTAINED DURING PROCEDURE. COMMENT: Quality ID 145: Final reports for procedures using fluoroscopy that document radiation exp osure indices, or exposure time and number of fluorographic images (if radiation exposure indices are not available) Please consult full operative report of the attending physician for description of the procedure. TECHNICAL DOCUMENTATION: JOB ID: [id number] [employer]- All Rights Reserved Reading location - IP/workstation name: [email or web address]
--- NOTE | 2019-11-28 09:05 | RADIOLOGY REPORT (SQ) ---
EXAM DESCRIPTION: NO CHG FLUORO; HIP LEFT AP/LATERAL COMPLETED DATE/TIME: 11/27/2019 9:04 pm REASON FOR STUDY: LT HIP SCREW IN THE OR COMPARISON: None. FLUOROSCOPY TIME: 0.6 minutes 2 images saved to PACS. TECHNIQUE: Intra-operative images acquired during surgical procedure to evaluate progress. NUMBER OF IMAGES: 2 LIMITATIONS: None. FINDINGS: Fluoroscopic images from hip compression screw fixation in the operating room. IMPRESSION: IMAGE(S) OBTAINED DURING PROCEDURE. COMMENT: Quality ID [id number]: Final reports for procedures using fluoroscopy that document radiation exp osure indices, or exposure time and number of fluorographic images (if radiation exposure indices are not available) Please consult full operative report of the attending physician for description of the procedure. TECHNICAL DOCUMENTATION: JOB ID: [id number] [employer]- All Rights Reserved Reading location - IP/workstation name: [email or web address]
[2019-11-28] MEDS: RANOLAZINE 500 MG TAB.SR.12H PO SCH ×2 (10:00→21:41)
[2019-11-28] MEDS: OXYBUTYNIN CHLORIDE 5 MG TABLET PO SCH ×2 (10:00→17:30)
[2019-11-28] MEDS: ISOSORBIDE MONONITRATE 30 MG TAB.ER.24H PO SCH ×2 (10:00→18:03)
[2019-11-28] MEDS: ASPIRIN 325 MG TABLET PO SCH (10:00)
[2019-11-28] MEDS: AZITHROMYCIN 500 MG in DEXTROSE 5%-WATER 250 ML IV SCH (10:01)
[2019-11-28] MEDS: GUAIFENESIN 600 MG TABLET.SA PO SCH (10:01)
[2019-11-28] MEDS: FAMOTIDINE 20 MG TABLET PO SCH ×2 (10:13→21:32)
[2019-11-28] MEDS: METOPROLOL SUCCINATE 50 MG TAB.SR.24H PO SCH (10:28)
[2019-11-28] MEDS: LOSARTAN POTASSIUM 25 MG TABLET PO SCH (10:28)
--- NOTE | 2019-11-28 10:55 | RADIOLOGY REPORT (SQ) ---
EXAM DESCRIPTION: CHEST SINGLE VIEW COMPLETED DATE/TIME: 11/28/2019 10:32 am REASON FOR STUDY: dyspnea, hypoxia COMPARISON: 11/27/2019 NUMBER OF VIEWS: One view. TECHNIQUE: Single frontal radiographic image of the chest acquired. LIMITATIONS: None. FINDINGS: LUNGS AND PLEURA: Increasing airspace opacity in the right lung. Atelectasis versus pneum onia. Chronic changes in the left base. MEDIASTINUM AND HEART: Stable heart size and mediastinal structures. SUPPORT DEVICES: Appropriate location without change. BONY STRUCTURES: No acute findings. HARDWARE: None. OTHER: No other significant finding. IMPRESSION: Atelectasis versus developing pneumonia in the right lung. Reading location - IP/workstation name: [email or web address]
--- NOTE | 2019-11-28 11:36 | PDOC PROGRESS REPORT ---
Subjective Progress Note for:: 11/28/19 Subjective:: NAHID REA is a 74 year old female with a past medical history of CHF, CAD, hypertension, hyperlipidemia, CABG x2, cardiac cath with stents x8, AICD, DM 2, hypothyroidism, and oxygen dependent COPD who was admitted 11/26/2027 for left hip fracture, sepsis and acute on chronic respiratory failure with hypercapnia secondary to pneumonia and COPD exacerbation. Patient was seen on morning rounds. She was found resting in bed, comfortably, on supplemental oxygen via nasal cannula at 3 L/min. She utilizes 3 L/min at baseline. The patient was sleeping; but woke briefly when I said her name. She complains of shortness of breath and left arm and hip pain. She has no questions or concerns at this time. Per nursing, patient has been disorientated with report of hallucinations. Report continued decreased urinary output and hypotension despite fluid bolus. Reason For Visit: PNEUMONIA Physical Exam Vital Signs: Temp Pulse Resp BP Pulse Ox 97.6 F 97 18 92/57 L 100 11/28/19 07:34 11/28/19 09:20 11/28/19 09:20 11/28/19 07:34 11/28/19 09:20 Pulse Oximeter Continuous Start: 11/26/19 14:10 Freq: RTQ4 Status: Active Protocol: Document 11/28/19 09:20 [facility] (Rec: 11/28/19 09:30 [facility] [id number]) Additional RT Notes Other CPT is not completed at this time. RASHID Verma was notified. Pulse Oximetry Assessment Oxygen Saturation (92-100) 100 Oxygen Flow Rate (L/min) 3 Oxygen Delivery Method Nasal Cannula Equipment Usage Equipment in Use Continuous SpO2 Machine # 3 Intake & Output 11/27/19 11/28/19 11/29/19 06:59 06:59 06:59 Intake Total 2970 4805 2090 Output Total 550 230 Balance 2420 4575 2090 Weight 53.3 kg 56.4 kg General appearance: PRESENT: mild distress, thin, well-developed, other - Frail Head exam: PRESENT: atraumatic, normocephalic Eye exam: PRESENT: conjunctiva pink, EOMI, PERRLA. ABSENT: scleral icterus Ear exam: PRESENT: normal external ear exam Mouth exam: PRESENT: moist, tongue midline Teeth exam: PRESENT: poor dentation Neck exam: ABSENT: carotid bruit, JVD, lymphadenopathy, thyromegaly Respiratory exam: PRESENT: accessory muscle use, rhonchi - Right lung mo, symmetrical, tachypnea - Shallow, other - Baseline oxygen requirement. ABSENT: rales, wheezes Cardiovascular exam: PRESENT: RRR, +S1, +S2, tachycardia. ABSENT: diastolic murmur, rubs, systolic murmur Pulses: PRESENT: normal dorsalis pedis pul Vascular exam: PRESENT: normal capillary refill GI/Abdominal exam: PRESENT: normal bowel sounds, soft. ABSENT: distended, guarding, mass, organolmegaly, rebound, tenderness Rectal exam: PRESENT: deferred Gentrourinary exam: PRESENT: indwelling catheter Extremities exam: PRESENT: tenderness, other - Left arm to sling. ABSENT: calf tenderness, clubbing, full ROM, pedal edema Neurological exam: PRESENT: alert, awake, oriented to person, CN II-XII grossly intact, other - Intermittently disoriented x4 with hallucinations. ABSENT: oriented to place, oriented to time, oriented to situation, motor sensory deficit Psychiatric exam: PRESENT: appropriate affect, normal mood. ABSENT: homicidal ideation, suicidal ideation Skin exam: PRESENT: dry, intact, warm. ABSENT: cyanosis, rash Results Laboratory Results: 11/28/19 05:42 11/28/19 05:42 11/27/19 11/27/19 11/28/19 11:30 11:30 05:42 WBC 14.1 H 11.4 H RBC 3.29 L 2.91 L Hgb 9.2 L 8.2 L Hct 29.1 L 26.1 L MCV 88 90 MCH 27.9 28.1 MCHC 31.6 L 31.3 L RDW 17.7 H 17.4 H Plt Count 208 142 L Seg Neutrophils % 73.2 Sodium 136.6 L Potassium 5.6 H Chloride 99 Carbon Dioxide 30 Anion Gap 8 BUN 40 H Creatinine 1.63 H Est GFR ( Amer) 38 L Glucose 151 H Calcium 8.7 11/28/19 05:42 WBC RBC Hgb Hct MCV MCH MCHC RDW Plt Count Seg Neutrophils % Sodium 138.1 Potassium 5.8 H Chloride 104 Carbon Dioxide 24 Anion Gap 10 BUN 46 H Creatinine 2.08 H Est GFR ( Amer) 28 L Glucose 132 H Calcium 8.3 L 11/26/19 11/26/19 11/26/19 09:20 15:23 19:04 Troponin I 0.025 0.194 0.197 NT-Pro-B Natriuret Pep 1770 H 11/27/19 00:20 Troponin I 0.237 NT-Pro-B Natriuret Pep Impressions: Humerus X-Ray 11/26/19 00:00 IMPRESSION: Fracture of the surgical neck extending into the anatomic neck. Fluoroscopy 11/27/19 00:00 IMPRESSION: IMAGE(S) OBTAINED DURING PROCEDURE. Hip X-Ray 11/27/19 00:00 IMPRESSION: IMAGE(S) OBTAINED DURING PROCEDURE. Chest X-Ray 11/28/19 00:00 IMPRESSION: Atelectasis versus developing pneumonia in the right lung. Assessment and Plan - Diagnosis (1) Acute and chronic respiratory failure with hypercapnia Is this a current diagnosis for this admission?: Yes Plan: Significantly improved; now maintaining oxygen saturations on 3 L/min by nasal cannula. She utilizes 3 L/min continuously at baseline. Multifactorial secondary to pneumonia, COPD exacerbation, opiate pain medications She does not have home CPAP or BiPAP. ABG shows chronic hypercapnia Repeat chest x-ray shows worsening right-sided pneumonia. Repeat ABG pending. We will continue supplemental oxygen and BiPAP as needed to maintain saturations. Scheduled as needed nebulizer treatments. Patient is empirically placed on antibiotics for treatment of community-acquired pneumonia. Encourage pulmonary toilet. (2) Pneumonia Qualifiers: Pneumonia type: due to unspecified organism Laterality: bilateral Lung location: unspecified part of lung Qualified Code(s): J18.9 - Pneumonia, unspecified organism Is this a current diagnosis for this admission?: Yes Plan: Blood cultures are negative at 24 hours Sputum cultures ordered. Chest x-ray today shows worsening right-sided pneumonia. ABG pending Patient was empirically placed on IV azithromycin and Rocephin for treatment of community-acquired pneumonia. Orthopedics additionally started IV cefepime; will discontinue Rocephin and continue cefepime for treatment of pneumonia in addition to the azithromycin. Remaining evaluation management as above. (3) CAD (coronary artery disease) Qualifiers: Coronary Disease-Associated Artery/Lesion type: unspecified vessel or lesion type Associated angina: without angina Is this a current diagnosis for this admission?: Yes Plan: The patient has a history of HI, two-vessel bypass, cardiac cath x 8 stents, hypertension, hyperlipidemia, DM 2 EKGs showed sinus tachycardia Initial troponin 0.025-> 0.194-> 0.197-> 0.237. Multifactorial secondary to hypoxia (following administration of IV fentanyl, patient did require BVM support followed byBiPAP), deman ischemia in setting of sepsis and PNA, and troponin leak r/t fall. The patient will be monitored on continuous cardiac telemetry. Antihypertensives as below. Management of acute on chronic respiratory failure is described above. Cardiology services were consulted for preoperative evaluation and recommendations. (4) Hypertension Is this a current diagnosis for this admission?: Yes Plan: Now with hypotension; holding metoprolol and losartan. Continue the patient's home medication regiment of metoprolol, losartan, isosorbide, Ranexa Cardiac diet (5) Hyperlipidemia Is this a current diagnosis for this admission?: Yes Plan: Does not appear the patient is on statin therapy. Cardiac diet (6) COPD (chronic obstructive pulmonary disease) Qualifiers: COPD type: unspecified COPD Qualified Code(s): J44.9 - Chronic obstructive pulmonary disease, unspecified Is this a current diagnosis for this admission?: Yes Plan: With exacerbation secondary to pneumonia. Continue supplemental oxygen and BiPAP as needed to maintain oxygen saturations. Scheduled as needed nebulizer treatments. Antibiotics as above. Mucinex twice daily. Encourage pulmonary toilet. (7) Closed fracture of left proximal humerus Qualifiers: Encounter type: initial encounter Fracture morphology: unspecified fracture morphology Qualified Code(s): S42.202A - Unspecified fracture of upper end of left humerus, initial encounter for closed fracture Is this a current diagnosis for this admission?: Yes Plan: Orthopedics is consulted; primary management per Dr. Mcintosh. Analgesics as needed. (8) Closed intertrochanteric fracture of left hip Qualifiers: Encounter type: initial encounter Fracture alignment: nondisplaced Qualified Code(s): S72.145A - Nondisplaced intertrochanteric fracture of left femur, initial encounter for closed fracture Is this a current diagnosis for this admission?: Yes Plan: Orthopedics is consulted; primary management per Dr. Mcintosh. Analgesics as needed. Heparin preoperatively. Postop DVT prophylaxis per orthopedic service. N.p.o. after midnight. Cardiology service consulted for cardiac clearance. (9) Sepsis Qualifiers: Sepsis type: sepsis due to unspecified organism Sepsis acute organ dysfunction status: with acute organ dysfunction Severe sepsis acute organ dysfunction type: acute respiratory failure Acute respiratory failure type: with hypercapnia Severe sepsis shock status: without septic shock Qualified Code(s): A41.9 - Sepsis, unspecified organism; R65.20 - Severe sepsis without septic shock; J96.02 - Acute respiratory failure with hypercapnia Is this a current diagnosis for this admission?: Yes Plan: Leukocytosis trending down. Sepsis due to community-acquired pneumonia, present on admission, evidenced by tachycardia, tachypnea, hypoxia on baseline oxygen requirement, Leukocytosis, elevated lactic acid and evidence of pneumonia on CXR. Cultures and antibiotics as above. Received appropriate IV fluid resuscitation by ED provider. Worsening pneumonia by chest x-ray. Worsening PIEDAD; likely related to hypotension. Now with acute anabolic encephalopathy. Receiving additional IV fluid boluses. Repeat lactic acid pending. (10) PIEDAD (acute kidney injury) Is this a current diagnosis for this admission?: Yes Plan: Likely prerenal secondary to sepsis, hypoxia, dehydration, hypotension Patient has already been transfused 1 unit PRBC. Received additional IV fluid boluses overnight. Continue maintenance IV fluids. Avoid nephrotoxic medications as able. Monitor serial chemistries (11) Hyperkalemia Is this a current diagnosis for this admission?: Yes Plan: Likely secondary to PIEDAD EKG does not show peaked T waves. Continue IV fluids. Kayexalate x1. Repeat chemistry this afternoon; may consider calcium, dextrose, insulin (12) Acute metabolic encephalopathy Is this a current diagnosis for this admission?: Yes Plan: Multifactorial secondary to sepsis, hypotension, pneumonia, acute kidney injury, pain, and narcotic medications. Evaluation and management as above. Supportive care. - Time Time Spent with patient: 35 or more minutes Medications reviewed and adjusted accordingly: Yes Anticipated discharge: SNF
[2019-11-28] MEDS ORDERED: SUCCINYLCHOLINE CHLORIDE INJ 200 MG/10 ML VIAL ONE (12:00)
[2019-11-28 12:04] LABS: ARTERIAL BLOOD BASE EXCESS -7.4 mmol/L; ARTERIAL BLOOD H2CO3 2.39 mmol/L (1.05-1.35); ARTERIAL BLOOD HCO3 23.1 mmol/L (20-24); ARTERIAL BLOOD O2 SATURATION 95.8 % (94-98); ARTERIAL BLOOD PO2 111.5 mmHg (80-100); ARTERIAL BLOOD TOTAL CO2 25.5 mmol/L (21-25)
[2019-11-28 12:05] LABS: ARTERIAL BLOOD FIO2 3L
[2019-11-28 12:06] LABS: ARTERIAL BLOOD PCO2 79.4 mmHg (35-45); ARTERIAL BLOOD PH 7.08 (7.35-7.45)
--- NOTE | 2019-11-28 13:40 | RADIOLOGY REPORT (SQ) ---
EXAM DESCRIPTION: CT HEAD WITHOUT COMPLETED DATE/TIME: 11/28/2019 1:24 pm REASON FOR STUDY: trauma COMPARISON: CT head 07/24/2019 TECHNIQUE: Axial images acquired through the brain without intravenous contrast. Images reviewed wi th bone, brain and subdural windows. Images stored on PACS. All CT scanners at this facility use dose modulation, iterative reconstruction, and/or weight based d osing when appropriate to reduce radiation dose to as low as reasonably achievable (ALARA). [facility]: Dose Right [facility]: CareDose [facility]: Dose Right [facility]: Teradose 4D [facility]: [employer] RADIATION DOSE: CT Rad equipment meets quality standard of care and radiation dose reduction techniq ues were employed. CTDIvol: 53.2 mGy. DLP: 1017 mGy-cm. mGy. LIMITATIONS: Motion artifact . FINDINGS: VENTRICLES: Prominent. CEREBRUM: No mass effect. No hemorrhage. No midline shift. Areas of low density in the white matte r most likely due to chronic micro-vascular ischemic change. No evidence for acute territorial infar ction. CEREBELLUM: No hemorrhage. No alteration of density. No evidence for acute infarction. EXTRAAXIAL SPACES: Age-related involutional change. No fluid collections. ORBITS AND GLOBE: Symmetrical contour of the globes. CALVARIUM: No depressed fracture. PARANASAL SINUSES: There is complete opacification of the bilateral maxillary sinuses, bilateral sphe noid sinuses, bilateral frontal sinuses and the mastoid air cells with hyperostosis, suggestive of ch ronicity. There is complete opacification of the bilateral mastoid air cells with fluid at the middl e ears. SOFT TISSUES: No hematoma. IMPRESSION: 1. No acute intracranial hemorrhage or depressed calvarial fracture. Chronic changes of atrophy and microvascular ischemia. 2. Chronic pansinusitis, ENT consult recommended. 3. Complete opacification of the bilateral mastoid air cells with fluid at the middle ears, please c orrelate for otomastoiditis. EVIDENCE OF ACUTE STROKE: NO. COMMENT: Quality ID # 436: Final reports with documentation of one or more dose reduction techniques (e.g., Automated exposure control, adjustment of the mA and/or kV according to patient size, use of iterative reconstruction technique) TECHNICAL DOCUMENTATION: JOB ID: [id number] [place]-[id number] 2010 [employer]- All Rights Reserved Reading location - IP/workstation name: [email or web address]
--- NOTE | 2019-11-28 13:54 | RADIOLOGY REPORT (SQ) ---
EXAM DESCRIPTION: CT CERVICAL SPINE WITHOUT COMPLETED DATE/TIME: 11/28/2019 1:24 pm REASON FOR STUDY: FALL COMPARISON: None. TECHNIQUE: Axial images acquired through the cervical spine without intravenous contrast. Images re viewed with lung, soft tissue and bone windows. Reconstructed coronal and sagittal MPR images review ed. Images stored on PACS. All CT scanners at this facility use dose modulation, iterative reconstruction, and/or weight based d osing when appropriate to reduce radiation dose to as low as reasonably achievable (ALARA). [facility]: Dose Right [facility]: CareDose [facility]: Dose Right [facility]: Teradose 4D [facility]: Smart [employer] RADIATION DOSE: CT Rad equipment meets quality standard of care and radiation dose reduction techniq ues were employed. CTDIvol: 19.2 mGy. DLP: 331 mGy-cm. mGy. LIMITATIONS: Motion artifact. FINDINGS: ALIGNMENT: Slight anterolisthesis C3 relative to C4. MINERALIZATION: Normal. VERTEBRAL BODIES: No fractures or dislocation. DISCS: No significant disc disease. FACETS, LATERAL MASSES, POSTERIOR ELEMENTS: No fractures. No dislocation. No acute findings. HARDWARE: None in the spine. VISUALIZED RIBS: No fractures. LUNG APICES AND SOFT TISSUES: No significant or acute findings. OTHER: No other significant finding. IMPRESSION: NO ACUTE OR SIGNIFICANT FINDINGS IN THE CERVICAL SPINE. TECHNICAL DOCUMENTATION: JOB ID: [id number] Quality ID # [id number]: Final reports with documentation of one or more dose reduction techniques (e.g., Au tomated exposure control, adjustment of the mA and/or kV according to patient size, use of iterative reconstruction technique) 2010 [employer]- All Rights Reserved Reading location - IP/workstation name: [email or web address]
--- NOTE | 2019-11-28 13:59 | RADIOLOGY REPORT (SQ) ---
EXAM DESCRIPTION: CT CHEST WITHOUT COMPLETED DATE/TIME: 11/28/2019 1:24 pm REASON FOR STUDY: trauma COMPARISON: None. TECHNIQUE: CT scan performed of the chest without intravenous contrast. Images reviewed with lung, soft tissue and bone windows. Reconstructed coronal and sagittal MPR images reviewed. All images st ored on PACS. All CT scanners at this facility use dose modulation, iterative reconstruction, and/or weight based d osing when appropriate to reduce radiation dose to as low as reasonably achievable (ALARA). [facility]: Dose Right [facility]: CareDose [facility]: Dose Right [facility]: Teradose 4D [facility]: [employer] RADIATION DOSE: mGy. LIMITATIONS: Motion artifact. FINDINGS: LUNGS AND PLEURA: Small bilateral effusions. There is associated dependent airspace disea se with air bronchograms in the right lower lobe. HILAR AND MEDIASTINAL STRUCTURES: No identified masses or abnormal nodes. No obvious aneurysm. HEART AND VASCULAR STRUCTURES: Cardiomegaly. CABG. Defibrillator. UPPER ABDOMEN: See separate report of the CT of the abdomen. THYROID AND OTHER SOFT TISSUES: Body wall edema. BONES: Compression fractures of T 7, T8 and T9 status post kyphoplasty T8. Old bilateral posterior r ib fractures. HARDWARE: See above. OTHER: No other significant findings. IMPRESSION: Cardiomegaly and small pleural effusions. Right lower lobe atelectasis versus developin g pneumonia. TECHNICAL DOCUMENTATION: JOB ID: [id number] Quality ID # [id number]: Final reports with documentation of one or more dose reduction techniques (e.g., Au tomated exposure control, adjustment of the mA and/or kV according to patient size, use of iterative reconstruction technique) 2010 [employer]- All Rights Reserved Reading location - IP/workstation name: [email or web address]
[2019-11-28 14:01] LABS: ARTERIAL BLOOD BASE EXCESS -5.2 mmol/L; ARTERIAL BLOOD FIO2 35%; ARTERIAL BLOOD H2CO3 2.29 mmol/L (1.05-1.35); ARTERIAL BLOOD HCO3 24.4 mmol/L (20-24); ARTERIAL BLOOD O2 SATURATION 97.8 % (94-98); ARTERIAL BLOOD PO2 139.6 mmHg (80-100); ARTERIAL BLOOD TOTAL CO2 26.7 mmol/L (21-25)
--- NOTE | 2019-11-28 14:02 | RADIOLOGY REPORT (SQ) ---
EXAM DESCRIPTION: CT ABD/PELVIS NO ORAL OR IV COMPLETED DATE/TIME: 11/28/2019 1:24 pm REASON FOR STUDY: trauma COMPARISON: None. TECHNIQUE: CT scan of the abdomen and pelvis performed without intravenous or oral contrast. Images reviewed with lung, soft tissue, and bone windows. Reconstructed coronal and sagittal MPR images revi ewed. All images stored on PACS. All CT scanners at this facility use dose modulation, iterative reconstruction, and/or weight based d osing when appropriate to reduce radiation dose to as low as reasonably achievable (ALARA). [facility]: Dose Right [facility]: CareDose [facility]: Dose Right [facility]: Teradose 4D [facility]: [employer] RADIATION DOSE: CT Rad equipment meets quality standard of care and radiation dose reduction techniq ues were employed. CTDIvol: 14.4 mGy. DLP: 968 mGy-cm.mGy. LIMITATIONS: Motion. Artifact from left hip fracture repair. FINDINGS: LOWER CHEST: See separate report of the CT of the chest. NON-CONTRASTED LIVER, SPLEEN, ADRENALS: Evaluation limited by lack of IV contrast. No identified sign ificant masses. PANCREAS: No masses. No peripancreatic inflammatory changes. GALLBLADDER: Surgically absent. RIGHT KIDNEY AND URETER: Atrophic. No significant calcifications. No hydronephrosis or hydrourete r. LEFT KIDNEY AND URETER: No suspicious masses. Assessment limited by lack of IV contrast. No signifi cant calcifications. No hydronephrosis or hydroureter. AORTA AND RETROPERITONEUM: No aneurysm. No retroperitoneal masses or adenopathy. BOWEL AND PERITONEAL CAVITY: Diverticulosis. No obvious masses or inflammatory changes. No free flui d. APPENDIX: Not visualized. PELVIS, BLADDER, AND ABDOMINAL WALL:Uterine fibroids. Briggs catheter. Body wall edema. BONES: Nothing acute. OTHER: No other significant finding. IMPRESSION: 1. Body wall edema. 2. Uterine fibroids. 3. Diverticulosis without evidence of diverticulitis. COMMENT: Quality ID # [id number]: Final reports with documentation of one or more dose reduction techniques (e.g., Automated exposure control, adjustment of the mA and/or kV according to patient size, use of iterative reconstruction technique) TECHNICAL DOCUMENTATION: JOB ID: [id number] [employer]- All Rights Reserved Reading location - IP/workstation name: [email or web address]
[2019-11-28 14:06] LABS: ABSOLUTE LYMPHOCYTES (AUTO) 1.1 10^3/uL (0.5-4.7); ABSOLUTE MONOCYTES (AUTO) 1.1 10^3/uL (0.1-1.4); ABSOLUTE NEUT (AUTO) 8.8 10^3/uL (1.7-8.2); ARTERIAL BLOOD PCO2 76.1 mmHg (35-45); ARTERIAL BLOOD PH 7.12 (7.35-7.45); BASOPHILS % (AUTO) 0.2 % (0-2); EOSINOPHILS % (AUTO) 0.1 % (0-6); HEMATOCRIT 26.2 % (36.0-47.0); HEMOGLOBIN 8.3 g/dL (12.0-15.5); INTERNATIONAL RATION (INR) 1.03; LYMPHOCYTES % (AUTO) 9.6 % (13-45); MEAN CORPUSCULAR HEMOGLOBIN 28.3 pg (27.0-33.4); MEAN CORPUSCULAR HGB CONC 31.7 g/dL (32.0-36.0); MEAN CORPUSCULAR VOLUME 90 fl (80-97); MONOCYTES % (AUTO) 10.1 % (3-13); PARTIAL THROMBOPLASTIN TIME 27.3 SEC (23.5-35.8); PLATELET COUNT 148 10^3/uL (150-450); PROTHROMBIN TIME 13.5 SEC (11.4-15.4); RED BLOOD COUNT 2.93 10^6/uL (3.72-5.28); RED CELL DISTRIBUTION WIDTH 17.7 % (11.5-14.0); TOTAL CELLS COUNTED % (AUTO) 100 %
[2019-11-28 14:11] LABS: ALBUMIN 2.7 g/dL (3.5-5.0); ALKALINE PHOSPHATASE 223 U/L (38-126); ANION GAP 10 (5-19); ASPARTATE AMINO TRANSFERASE 51 U/L (14-36); BILIRUBIN,DIRECT 0.4 mg/dL (0.0-0.4); BILIRUBIN,TOTAL 0.4 mg/dL (0.2-1.3); BLOOD UREA NITROGEN 50 mg/dL (7-20); CALCIUM 8.3 mg/dL (8.4-10.2); CARBON DIOXIDE 23 mmol/L (22-30); CHLORIDE 105 mmol/L (98-107); CREATINE KINASE 319 U/L (30-135); GLUCOSE 157 mg/dL (75-110); PHOSPHORUS 7.9 mg/dL (2.5-4.5); POTASSIUM 5.2 mmol/L (3.6-5.0); TOTAL PROTEIN 5.5 g/dL (6.3-8.2)
[2019-11-28 14:22] LABS: CREATINE KINASE MB 6.3 ng/mL (<4.55)
[2019-11-28] MEDS ORDERED: KETAMINE HCL INJ 500 MG/10 ML VIAL ONE (14:23)
[2019-11-28 14:24] LABS: TROPONIN I 0.556 ng/mL
[2019-11-28 14:26] LABS: FREE T3 1.9 pg/mL (2.77-5.27); FREE T4 (FREE THYROXINE) 0.88 ng/dL (0.78-2.19)
[2019-11-28] MEDS: MIDAZOLAM HCL 50 MG/100 ML RTUINJ IV PRN (14:30)
[2019-11-28 14:39] LABS: THYROID STIMULATING HORMONE 1.75 uIU/mL (0.47-4.68)
[2019-11-28] MEDS ORDERED: MIDAZOLAM HCL 50 MG/100 ML RTUINJ ONE (14:47)
--- NOTE | 2019-11-28 15:33 | RADIOLOGY REPORT (SQ) ---
EXAM DESCRIPTION: CHEST SINGLE VIEW COMPLETED DATE/TIME: 11/28/2019 3:10 pm REASON FOR STUDY: intubation COMPARISON: Earlier the same day. NUMBER OF VIEWS: One view. TECHNIQUE: Single frontal radiographic image of the chest acquired. LIMITATIONS: None. FINDINGS: LUNGS AND PLEURA: Improved aeration in the right lower lung. No pneumothorax. MEDIASTINUM AND HEART: Stable heart size and mediastinal structures. SUPPORT DEVICES: Interval intubation. Appropriate position of endotracheal and nasogastric tubes. BONY STRUCTURES: No acute findings. HARDWARE: None. OTHER: No other significant finding. IMPRESSION: Good position of support apparatus. No pneumothorax. Reading location - IP/workstation name: [email or web address] [email or web address]
[2019-11-28] MEDS ORDERED: ALBUMIN HUMAN IV ONE (15:57)
[2019-11-28] MEDS ORDERED: MIDODRINE HCL 5 MG TABLET PO SCH (16:00)
[2019-11-28 16:47] LABS: ARTERIAL BLOOD BASE EXCESS -4.9 mmol/L; ARTERIAL BLOOD H2CO3 1.49 mmol/L (1.05-1.35); ARTERIAL BLOOD HCO3 21.9 mmol/L (20-24); ARTERIAL BLOOD PCO2 49.6 mmHg (35-45); ARTERIAL BLOOD PH 7.26 (7.35-7.45); ARTERIAL BLOOD PO2 85.4 mmHg (80-100); ARTERIAL BLOOD TOTAL CO2 23.4 mmol/L (21-25)
[2019-11-28 16:49] LABS: ARTERIAL BLOOD FIO2 30%
[2019-11-28] MEDS: NORMAL SALINE 1000 ML 1,000 ML IV PRN (17:00)
[2019-11-28 17:15] LABS: CREATINE KINASE MB 7.03 ng/mL (<4.55); TROPONIN I 0.563 ng/mL
[2019-11-28] MEDS: FENTANYL CITRATE/PF 600 MCG/60 ML BAG IV PRN (17:22)
[2019-11-28] MEDS ORDERED: SUCCINYLCHOLINE CHLORIDE INJ 200 MG/10 ML VIAL IV ONE (17:30)
[2019-11-28] MEDS ORDERED: KETAMINE HCL INJ 500 MG/10 ML VIAL IV ONE (17:30)
--- NOTE | 2019-11-28 18:28 | CRITICAL CARE ADMISSION REPORT ---
HPI Date:: 11/28/19 Reason for ICU Reason:: hypercapnic respiratory failure HPI: NAHID REA is a 74 year old female. History limited as patient is altered at this point and daughter does not remember all details. Patient fell at home a few days ago and was found to have left hip and humerus fractures. After being cleared medically she was taken to the operating by ortho for a left femur IMN and her arm was treated non-operatively. This afternoon the patient became lethargic and her blood pressure dropped considerably. Blood gas showed a PCO2 in the 70's and the patient required BiPAP to aid with respirations. She was taken urgently to CT scan for CT of her head and because of her history of trauma scans of the rest of her body were performed. She was then taken to the ICU for additional care. - Diagnosis/Plan (1) PIEDAD (acute kidney injury) Is this a current diagnosis for this admission?: Yes Plan: Continue hydration with normal saline due to her hyperkalemia and monitor urine output closely via bradley catheter. No indications for intervention at this time aside from IVF. (2) Acute and chronic respiratory failure with hypercapnia Is this a current diagnosis for this admission?: Yes Plan: Patient's CO2 was grossly elevated and she was altered/non-responsive. Decision was made to intubate the patient urgently. See separate intubation note. (3) CAD (coronary artery disease) Qualifiers: Coronary Disease-Associated Artery/Lesion type: unspecified vessel or lesion type Associated angina: without angina Is this a current diagnosis for this admission?: Yes (4) COPD (chronic obstructive pulmonary disease) Qualifiers: COPD type: unspecified COPD Qualified Code(s): J44.9 - Chronic obstructive pulmonary disease, unspecified Is this a current diagnosis for this admission?: Yes (5) Closed fracture of left proximal humerus Qualifiers: Encounter type: initial encounter Fracture morphology: unspecified fracture morphology Qualified Code(s): S42.202A - Unspecified fracture of upper end of left humerus, initial encounter for closed fracture Is this a current diagnosis for this admission?: Yes (6) Closed intertrochanteric fracture of left hip Qualifiers: Encounter type: initial encounter Fracture alignment: nondisplaced Qualified Code(s): S72.145A - Nondisplaced intertrochanteric fracture of left femur, initial encounter for closed fracture Is this a current diagnosis for this admission?: Yes (7) Hyperkalemia Is this a current diagnosis for this admission?: Yes (8) Hyperlipidemia Is this a current diagnosis for this admission?: Yes (9) Hypertension Is this a current diagnosis for this admission?: Yes (10) ICD (implantable cardioverter-defibrillator) in place Is this a current diagnosis for this admission?: Yes - . Plan Summary: 74yo F with exacerbation of CHF after left hip IMN. BNP 22k with small pericardial/pleural effusions and hypercapnic respiratory failure. There is a new holosystolic murmur present on exam. Cardiology has been contacted to re- evaluate the patient and she will remain in the ICU intubated overnight. She has foul smelling, copious volumes of diarrhea which have been sent for C-Diff testing. FMS in place to help collect stool. Her blood pressure is borderling/low at this time and we are not able to aggressively diurese her. ABG with improvement in hypercapnia from prior. Will monitor closely overnight. SBT in the AM. 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 Endocrine Medical History: Reports: Diabetes Mellitus Type 2, Hypothyroidism Renal/ Medical History: Reports: None Malignancy Medical History: Reports: Breast Cancer GI Medical History: Reports: Gastroesophageal Reflux Disease Musculoskeltal Medical History: Reports: Arthritis Psychiatric Medical History: Reports: None Traumatic Medical History: Reports: None Infectious Medical History: Reports: None Past Surgical History Past Surgical History: Reports: Appendectomy, Cardiac Catheterization, Cholecystectomy, Coronary Stent Social/Family History - Social History Lives with: Family Smoking Status: Former Smoker Frequency of Alcohol Use: None Hx Recreational Drug Use: No Drugs: None Hx Prescription Drug Abuse: No - Medication/Allergies Home Medications: Acetaminophen 500 mg PO PRN PRN 11/26/19 Bacillus Coagulans [Digestive Advantage] 1 each PO QAM 11/26/19 Budesonide/Formoterol Fumarate [Symbicort Hfa 160-4.5 Mcg Inhaler 6 gm] 2 puff IH Q12 11/26/19 Cholecalciferol (Vitamin D3) [Vitamin D3 1000 Unit Tablet] 1,000 unit PO QAM 11/26/19 Cyanocobalamin (Vitamin B-12) [Vitamin B-12] 1,000 mcg PO QAM 11/26/19 Escitalopram Oxalate [Lexapro] 20 mg PO QHS 11/26/19 Folic Acid 0.8 mg PO QAM 11/26/19 Isosorbide Mononitrate [Imdur 30 mg Tablet.er] 30 mg PO BID 11/26/19 Levothyroxine Sodium [Synthroid 0.05 mg Tablet] 0.05 mg PO Q6AM 11/26/19 Losartan Potassium [Cozaar 25 mg Tablet] 25 mg PO QAM 11/26/19 Lutein [Natural Lutein] 20 mg PO QAM 11/26/19 Metoprolol Succinate [Toprol Xl 50 mg Tab.sr] 50 mg PO QAM 11/26/19 Nitroglycerin [Nitrostat 0.4 mg (1/150 Gr) Tabs 25/Bottle] 1 tab SL Q5MP PRN 11/26/19 Oxybutynin Chloride [Ditropan 5 Mg Tablet] 5 mg PO BID 11/26/19 Ranolazine [Ranexa 500 mg Tab.sr] 500 mg PO Q12 11/26/19 Tiotropium [place] [Spiriva Respimat] 2 puff IH BID 11/26/19 Allergies/Adverse Reactions: Penicillins Allergy (Intermediate, Verified 11/26/19 14:20) atropine [From ] Allergy (Unknown, Verified 11/26/19 14:18) hyoscyamine [From ] Allergy (Unknown, Verified 11/26/19 14:18) phenobarbital [From ] Allergy (Unknown, Verified 11/26/19 14:18) scopolamine [From ] Allergy (Unknown, Verified 11/26/19 14:18) codeine Allergy (Verified 07/24/19 14:17) morphine Allergy (Verified 11/26/19 10:58) nitrofurantoin Allergy (Verified 11/26/19 10:58) Pcisheo-Fwa-Ltw Reductase Inhibitor Allergy (Verified 11/26/19 10:58) Sulfa (Sulfonamide Antibiotics) Allergy (Verified 07/24/19 14:17) Physical Exam Vital Signs: Temp Pulse Resp BP Pulse Ox 99.0 F 98 14 108/82 100 11/28/19 17:12 11/28/19 17:12 11/28/19 17:12 11/28/19 17:12 11/28/19 17:12 Pulse Oximeter Continuous Start: 11/26/19 14:10 Freq: RTQ4 Status: Complete Protocol: Document 11/28/19 12:25 [facility] (Rec: 11/28/19 12:27 [facility] [id number]) Pulse Oximetry Assessment Oxygen Saturation (92-100) 100 Oxygen Delivery Method Bi-pap Fraction of Inspired Oxygen (FIO2) 35 Equipment Usage Equipment in Use Continuous SpO2 Machine # 3 Intake & Output 11/27/19 11/28/19 11/29/19 06:59 06:59 06:59 Intake Total 2970 4805 2330 Output Total 550 230 255 Balance 2420 4575 2075 Weight 53.3 kg 56.4 kg Weight/Height Weight 56.4 kg Height 5 ft 2 in General appearance: PRESENT: severe distress, well-developed, well-nourished Head exam: PRESENT: atraumatic, normocephalic Eye exam: PRESENT: conjunctiva pink, EOMI, PERRLA. ABSENT: scleral icterus Ear exam: PRESENT: normal external ear exam Mouth exam: PRESENT: moist, tongue midline Throat exam: ABSENT: post pharyngeal erythema Neck exam: ABSENT: carotid bruit, JVD, lymphadenopathy, thyromegaly Respiratory exam: PRESENT: accessory muscle use, decreased breath sounds, rhonchi, tachypnea Cardiovascular exam: PRESENT: RRR, systolic murmur. ABSENT: rubs Pulses: PRESENT: normal dorsalis pedis pul Vascular exam: PRESENT: normal capillary refill GI/Abdominal exam: PRESENT: normal bowel sounds, soft. ABSENT: distended, gu arding, mass, organolmegaly, rebound, tenderness Rectal exam: PRESENT: deferred Extremities exam: PRESENT: tenderness, +1 edema Musculoskeletal exam: PRESENT: deformity - left humerus, tenderness Neurological exam: PRESENT: altered, CN II-XII grossly intact. ABSENT: oriented to person, oriented to place, oriented to time, oriented to situation Skin exam: PRESENT: dry, warm Laboratory/Radiographs Laboratory Results: 11/28/19 13:30 11/28/19 13:30 11/28/19 11/28/19 11/28/19 05:42 05:42 11:44 WBC 11.4 H RBC 2.91 L Hgb 8.2 L Hct 26.1 L MCV 90 MCH 28.1 MCHC 31.3 L RDW 17.4 H Plt Count 142 L Seg Neutrophils % Carbonic Acid HCO3/H2CO3 Ratio ABG pH ABG pCO2 ABG pO2 ABG HCO3 ABG O2 Saturation ABG Base Excess FiO2 Sodium 138.1 Potassium 5.8 H Chloride 104 Carbon Dioxide 24 Anion Gap 10 BUN 46 H Creatinine 2.08 H Est GFR ( Amer) 28 L Glucose 132 H Lactic Acid 0.6 L Calcium 8.3 L Phosphorus Magnesium Total Bilirubin AST Alkaline Phosphatase Ammonia Total Protein Albumin TSH Free T4 Free T3 pg/mL 11/28/19 11/28/19 11/28/19 11:48 13:30 13:30 WBC 11.0 H RBC 2.93 L Hgb 8.3 L Hct 26.2 L MCV 90 MCH 28.3 MCHC 31.7 L RDW 17.7 H Plt Count 148 L Seg Neutrophils % 80.0 H Carbonic Acid 2.39 H 2.29 H HCO3/H2CO3 Ratio 9:1 10:1 ABG pH 7.08 L* 7.12 L* ABG pCO2 79.4 H* 76.1 H* ABG pO2 111.5 H 139.6 H ABG HCO3 23.1 24.4 H ABG O2 Saturation 95.8 97.8 ABG Base Excess -7.4 -5.2 FiO2 3L 35% Sodium Potassium Chloride Carbon Dioxide Anion Gap BUN Creatinine Est GFR ( Amer) Glucose Lactic Acid Calcium Phosphorus Magnesium Total Bilirubin AST Alkaline Phosphatase Ammonia Total Protein Albumin TSH Free T4 Free T3 pg/mL 11/28/19 11/28/19 11/28/19 13:30 13:30 13:30 WBC RBC Hgb Hct MCV MCH MCHC RDW Plt Count Seg Neutrophils % Carbonic Acid HCO3/H2CO3 Ratio ABG pH ABG pCO2 ABG pO2 ABG HCO3 ABG O2 Saturation ABG Base Excess FiO2 Sodium 138.1 Potassium 5.2 H Chloride 105 Carbon Dioxide 23 Anion Gap 10 BUN 50 H Creatinine 2.29 H Est GFR ( Amer) 25 L Glucose 157 H Lactic Acid Calcium 8.3 L Phosphorus 7.9 H Magnesium 1.7 Total Bilirubin 0.4 AST 51 H Alkaline Phosphatase 223 H Ammonia 10.8 Total Protein 5.5 L Albumin 2.7 L TSH 1.75 Free T4 0.88 Free T3 pg/mL 1.90 L 11/28/19 11/28/19 13:30 16:30 WBC RBC Hgb Hct MCV MCH MCHC RDW Plt Count Seg Neutrophils % Carbonic Acid 1.49 H HCO3/H2CO3 Ratio 14:1 ABG pH 7.26 L ABG pCO2 49.6 H ABG pO2 85.4 ABG HCO3 21.9 ABG O2 Saturation 95.0 ABG Base Excess -4.9 FiO2 30% Sodium Potassium Chloride Carbon Dioxide Anion Gap BUN Creatinine Est GFR ( Amer) Glucose Lactic Acid < 0.5 L Calcium Phosphorus Magnesium Total Bilirubin AST Alkaline Phosphatase Ammonia Total Protein Albumin TSH Free T4 Free T3 pg/mL 11/26/19 11/26/19 11/26/19 09:20 15:23 19:04 Creatine Kinase CK-MB (CK-2) Troponin I 0.025 0.194 0.197 NT-Pro-B Natriuret Pep 1770 H 11/27/19 11/28/19 11/28/19 00:20 13:30 13:30 Creatine Kinase 319 H CK-MB (CK-2) 6.30 H Troponin I 0.237 0.556 NT-Pro-B Natriuret Pep 45972 H 11/28/19 11/28/19 11/28/19 13:30 13:30 16:30 Creatine Kinase Cancelled 340 H CK-MB (CK-2) Cancelled Troponin I NT-Pro-B Natriuret Pep 11/28/19 16:30 Creatine Kinase CK-MB (CK-2) 7.03 H Troponin I 0.563 NT-Pro-B Natriuret Pep Impressions: Humerus X-Ray 11/26/19 00:00 IMPRESSION: Fracture of the surgical neck extending into the anatomic neck. Fluoroscopy 11/27/19 00:00 IMPRESSION: IMAGE(S) OBTAINED DURING PROCEDURE. Hip X-Ray 11/27/19 00:00 IMPRESSION: IMAGE(S) OBTAINED DURING PROCEDURE. Abdomen/Pelvis CT 11/28/19 00:00 IMPRESSION: 1. Body wall edema. 2. Uterine fibroids. 3. Diverticulosis without evidence of diverticulitis. Cervical Spine CT 11/28/19 00:00 IMPRESSION: NO ACUTE OR SIGNIFICANT FINDINGS IN THE CERVICAL SPINE. Chest CT 11/28/19 00:00 IMPRESSION: Cardiomegaly and small pleural effusions. Right lower lobe atelectasis versus developing pneumonia. Chest X-Ray 11/28/19 00:00 IMPRESSION: Good position of support apparatus. No pneumothorax. Head CT 11/28/19 12:44 IMPRESSION: 1. No acute intracranial hemorrhage or depressed calvarial fracture. Chronic changes of atrophy and microvascular ischemia. 2. Chronic pansinusitis, ENT consult recommended. 3. Complete opacification of the bilateral mastoid air cells with fluid at the middle ears, please correlate for otomastoiditis. EVIDENCE OF ACUTE STROKE: NO. All labs, radiographs, diagnostic studies and EKGs were personally reviewed: Yes In addition, reports of radiographic and diagnostic studies were read: Yes Critical Time Critical Time (minutes): 120 -: The care of a critically ill patient is dynamic. This note represents a static moment in the admission process. Orders and treatments may be given s imultaneously and urgently, and time is not artists' booking representative of the treatment process. This patient requires Critical Care secondary to life threatening organ or limb dysfunction. Without Critical Care services, the patient is at risk for increased mortality and morbidity.
--- NOTE | 2019-11-28 18:36 | Operative Report ---
Bedside Procedure - History of Present Illness History of Present Illness: NAHID REA is a 74 year old female. History limited as patient is altered at this point and daughter does not remember all details. Patient fell at home a few days ago and was found to have left hip and humerus fractures. After being cleared medically she was taken to the operating by ortho for a left femur IMN and her arm was treated non-operatively. This afternoon the patient became lethargic and her blood pressure dropped considerably. Blood gas showed a PCO2 in the 70's and the patient required BiPAP to aid with respirations. She was taken urgently to CT scan for CT of her head and because of her history of trauma scans of the rest of her body were performed. She was then taken to the ICU for additional care. Intubation Note: Patient taken to the ICU via Cat Scan and remained altered/unable to follow commands despite breathing on her own. The decision was made to intubate urgently. Procedure: Intubation Pre-Diagnosis: Hypercapnic Respiratory Failure Post-Diagnosis: Same Provider: Berenice Melendez Anesthesia: Conscious Sedation with KEtamine / Succinylcholine Complications: None Procedure in Detail: The patient was positioned and her head extended. After giving medications to sedate and paralyze (see sedation note) a MAC 3 blade on the fiberoptic scope was used to visualize the cords. A 7-0 ET tube was then inserted through the cords under direct visualization. The balloon was inflated and color change verified on color capnography. The tube was then attached to the ventilator and a chest X-ray was performed showing the tube in good position. I personally performed the procedure. Indication for Procedure: respiratory failure Date: 11/28/19 Provider: BERENICE MELENDEZ - Conscious Sedation Conscious sedation Time started: 14:30 Time completed: 15:00 Consent obtained: No - emergent intubation Indication: respiratory failure Pt with severe systemic disease that is a threat to life.: P4. - ASA Classification Airway Evaluation: Normal anatomy, Large tongue. No: Copious secretions, Loose teeth, Neck immobility, Obese Mallampati Classification: Class 2 Used during procedure: Suction available, IV access obtained, Pulse ox on pt., structural ironworker on pt. Medications administered: Ketamine, Other - succinylcholine Reversal agents: None I personally performed/intraservice time: Sedation, 30 min or less Complications: No
--- NOTE | 2019-11-28 19:22 | EKG REPORT ---
SEVERITY:- ABNORMAL ECG - SINUS TACHYCARDIA LAD, CONSIDER LAFB OR INFERIOR INFARCT ABNRM R PROG, CONSIDER ASMI OR LEAD PLACEMENT : Confirmed by: Krystal Gonzalez MD 28-Nov-2019 19:22:08
[2019-11-28 19:36] LABS: C DIFFICILE GDH NEGATIVE (NEGATIVE)
--- NOTE | 2019-11-28 20:33 | XCELERA REPORT ---
[address] [address] Transthoracic Echocardiogram Report Name: NAHID REA Age: 74 yrs Gender: Female : 1945 Patient Status: Inpatient Patient Location: ICU^[id number]^A Study Date: 11/28/2019 06:50 PM History: CAD CABG Dilated CMP Respiratory distress Height: 62 in Weight: 124 lb BSA: 1.6 m2 Procedure: A complete two-dimensional transthoracic echocardiogram was performed (2D, M-mode, spectral and color flow Doppler). The study was technically adequate with some images being suboptimal in quality. Reason For Study: New systolic murmur, CHF exacerbation, hx of CAD Previous Evaluation: No previous studies were available. History: CAD. CHF. HTN. Ordering Physician: BERENICE HORVATH Performed By: Shahla Jo Interpretation Summary The study was technically adequate with some images being suboptimal in quality. Left ventricular systolic function is moderately reduced. The Ejection Fraction estimate is 20-25% The right ventricle is normal in size and function. There is a mild to moderate amount of mitral regurgitation There is a trace or physiologic amount of tricuspid regurgitation Doppler findings do not suggest pulmonary hypertension. There is no pericardial effusion. MMode/2D Measurements & Calculations RVDd: 2.3 cm LVIDd: 4.5 cm FS: 19.4 % Ao root diam: 2.5 cm IVSd: 1.1 cm LVIDs: 3.6 cm EDV(Teich): 91.9 ml Ao root area: 4.8 cm2 LVPWd: 0.98 cm ESV(Teich): 55.0 ml LA dimension: 3.7 cm EF(Teich): 40.1 % Doppler Measurements & Calculations MV E max rosa m: MV P1/2t max rosa m: Ao V2 max: LV V1 max P.5 cm/sec 142.5 cm/sec 182.1 cm/sec 8.3 mmHg MV A max rosa m: MV P1/2t: 61.1 msec Ao max PG: LV V1 max: 144.6 cm/sec MVA(P1/2t): 3.6 cm2 13.3 mmHg 143.7 cm/sec MV E/A: 0.81 MV dec slope: 683.1 cm/sec2 MV dec time: 0.14 sec PA V2 max: PI end-d rosa m: TR max rosa m: MV P1/2t-pr_phl: 115.4 cm/sec 147.3 cm/sec 290.5 cm/sec 61.1 msec PA max P.3 mmHg TR max P.8 mmHg Left Ventricle The left ventricle is mildly dilated. There is mild concentric left ventricular hypertrophy. Left ventricular systolic function is moderately reduced. The Ejection Fraction estimate is 20-25%. Doppler measurements suggest impaired left ventricular relaxation, which is associated with grade I/IV or mild diastolic dysfunction. There is septal wall akinesis. There is anterior wall akinesis. There is apical wall severe hypokinesis. There is mild global hypokinesis of the left ventricle. Right Ventricle The right ventricle is normal in size and function. There is a pacemaker lead in the right ventricle. Atria The right atrium is normal. There is a catheter/pacemaker lead seen in the right atrium. The left atrium is mildly dilated. Mitral Valve There is mild mitral annular calcification. There is a mild to moderate amount of mitral regurgitation. Aortic Valve The aortic valve is moderately calcified. The aortic valve opens well. The aortic valve is sclerotic, but shows no functional abnormality. The aortic valve is trileaflet. There is no aortic valve stenosis. No aortic regurgitation is present. Tricuspid Valve The tricuspid valve is not well visualized, but is grossly normal. There is a trace or physiologic amount of tricuspid regurgitation. Doppler findings do not suggest pulmonary hypertension. Pulmonic Valve The pulmonic valve is normal in structure and function. There is a mild amount of pulmonic regurgitation. Great Vessels The aortic root is normal size. The inferior vena cava appeared normal. Effusions There is no pericardial effusion. : BERENICE HORVATH Anil
[2019-11-28] MEDS: HEPARIN SOD (PORCINE) 5,000 UNIT/ML 1 ML VIAL SUBCUT SCH (21:32)
[2019-11-28] MEDS ORDERED: RANOLAZINE 500 MG TAB.SR.12H PO ONE (21:38)
--- NOTE | 2019-11-28 22:10 | PDOC PROGRESS REPORT ---
Subjective Progress Note for:: 11/28/19 Subjective:: Patient status post surgery for hip fracture. Subsequently she appears to have become lethargic and hypotensive and was found to be hypercarbic. She was intubated. He is presently in the intensive care unit. She is comfortable. Reason For Visit: PNEUMONIA Physical Exam Vital Signs: Temp Pulse Resp BP Pulse Ox 99.7 F 102 H 0 L 108/62 100 11/28/19 18:00 11/28/19 20:00 11/28/19 19:56 11/28/19 19:56 11/28/19 20:00 Pulse Oximeter Continuous Start: 11/26/19 14:10 Freq: RTQ4 Status: Complete Protocol: Document 11/28/19 12:25 [facility] (Rec: 11/28/19 12:27 [facility] [id number]) Pulse Oximetry Assessment Oxygen Saturation (92-100) 100 Oxygen Delivery Method Bi-pap Fraction of Inspired Oxygen (FIO2) 35 Equipment Usage Equipment in Use Continuous SpO2 Machine # 3 Intake & Output 11/27/19 11/28/19 11/29/19 06:59 06:59 06:59 Intake Total 2970 4805 4463 Output Total 550 230 505 Balance 2420 4575 3958 Weight 53.3 kg 56.4 kg 56.4 kg General appearance: PRESENT: no acute distress - Intubated and sedated. Head exam: PRESENT: atraumatic, normocephalic Mouth exam: PRESENT: moist Respiratory exam: PRESENT: decreased breath sounds, other - Ventilator assisted breath sounds. Coarse breath sounds. Cardiovascular exam: PRESENT: RRR, +S1, +S2, other GI/Abdominal exam: PRESENT: soft - Left chest wall ICD implant site is well- healed. No edema Rectal exam: PRESENT: deferred Neurological exam: PRESENT: other - Patient is sedated per protocol on ventilator Skin exam: PRESENT: dry, intact Results Laboratory Results: 11/28/19 13:30 11/28/19 13:30 11/28/19 11/28/19 11/28/19 05:42 05:42 11:44 WBC 11.4 H RBC 2.91 L Hgb 8.2 L Hct 26.1 L MCV 90 MCH 28.1 MCHC 31.3 L RDW 17.4 H Plt Count 142 L Seg Neutrophils % Carbonic Acid HCO3/H2CO3 Ratio ABG pH ABG pCO2 ABG pO2 ABG HCO3 ABG O2 Saturation ABG Base Excess FiO2 Sodium 138.1 Potassium 5.8 H Chloride 104 Carbon Dioxide 24 Anion Gap 10 BUN 46 H Creatinine 2.08 H Est GFR ( Amer) 28 L Glucose 132 H Lactic Acid 0.6 L Calcium 8.3 L Phosphorus Magnesium Total Bilirubin AST Alkaline Phosphatase Ammonia Total Protein Albumin TSH Free T4 Free T3 pg/mL 11/28/19 11/28/19 11/28/19 11:48 13:30 13:30 WBC 11.0 H RBC 2.93 L Hgb 8.3 L Hct 26.2 L MCV 90 MCH 28.3 MCHC 31.7 L RDW 17.7 H Plt Count 148 L Seg Neutrophils % 80.0 H Carbonic Acid 2.39 H 2.29 H HCO3/H2CO3 Ratio 9:1 10:1 ABG pH 7.08 L* 7.12 L* ABG pCO2 79.4 H* 76.1 H* ABG pO2 111.5 H 139.6 H ABG HCO3 23.1 24.4 H ABG O2 Saturation 95.8 97.8 ABG Base Excess -7.4 -5.2 FiO2 3L 35% Sodium Potassium Chloride Carbon Dioxide Anion Gap BUN Creatinine Est GFR ( Amer) Glucose Lactic Acid Calcium Phosphorus Magnesium Total Bilirubin AST Alkaline Phosphatase Ammonia Total Protein Albumin TSH Free T4 Free T3 pg/mL 11/28/19 11/28/19 11/28/19 13:30 13:30 13:30 WBC RBC Hgb Hct MCV MCH MCHC RDW Plt Count Seg Neutrophils % Carbonic Acid HCO3/H2CO3 Ratio ABG pH ABG pCO2 ABG pO2 ABG HCO3 ABG O2 Saturation ABG Base Excess FiO2 Sodium 138.1 Potassium 5.2 H Chloride 105 Carbon Dioxide 23 Anion Gap 10 BUN 50 H Creatinine 2.29 H Est GFR ( Amer) 25 L Glucose 157 H Lactic Acid Calcium 8.3 L Phosphorus 7.9 H Magnesium 1.7 Total Bilirubin 0.4 AST 51 H Alkaline Phosphatase 223 H Ammonia 10.8 Total Protein 5.5 L Albumin 2.7 L TSH 1.75 Free T4 0.88 Free T3 pg/mL 1.90 L 11/28/19 11/28/19 13:30 16:30 WBC RBC Hgb Hct MCV MCH MCHC RDW Plt Count Seg Neutrophils % Carbonic Acid 1.49 H HCO3/H2CO3 Ratio 14:1 ABG pH 7.26 L ABG pCO2 49.6 H ABG pO2 85.4 ABG HCO3 21.9 ABG O2 Saturation 95.0 ABG Base Excess -4.9 FiO2 30% Sodium Potassium Chloride Carbon Dioxide Anion Gap BUN Creatinine Est GFR ( Amer) Glucose Lactic Acid < 0.5 L Calcium Phosphorus Magnesium Total Bilirubin AST Alkaline Phosphatase Ammonia Total Protein Albumin TSH Free T4 Free T3 pg/mL 11/26/19 11/26/19 11/26/19 09:20 15:23 19:04 Creatine Kinase CK-MB (CK-2) Troponin I 0.025 0.194 0.197 NT-Pro-B Natriuret Pep 1770 H 11/27/19 11/28/19 11/28/19 00:20 13:30 13:30 Creatine Kinase 319 H CK-MB (CK-2) 6.30 H Troponin I 0.237 0.556 NT-Pro-B Natriuret Pep 98373 H 11/28/19 11/28/19 11/28/19 13:30 13:30 16:30 Creatine Kinase Cancelled 340 H CK-MB (CK-2) Cancelled Troponin I NT-Pro-B Natriuret Pep 11/28/19 16:30 Creatine Kinase CK-MB (CK-2) 7.03 H Troponin I 0.563 NT-Pro-B Natriuret Pep Impressions: Humerus X-Ray 11/26/19 00:00 IMPRESSION: Fracture of the surgical neck extending into the anatomic neck. Fluoroscopy 11/27/19 00:00 IMPRESSION: IMAGE(S) OBTAINED DURING PROCEDURE. Hip X-Ray 11/27/19 00:00 IMPRESSION: IMAGE(S) OBTAINED DURING PROCEDURE. Abdomen/Pelvis CT 11/28/19 00:00 IMPRESSION: 1. Body wall edema. 2. Uterine fibroids. 3. Diverticulosis without evidence of diverticulitis. Cervical Spine CT 11/28/19 00:00 IMPRESSION: NO ACUTE OR SIGNIFICANT FINDINGS IN THE CERVICAL SPINE. Chest CT 11/28/19 00:00 IMPRESSION: Cardiomegaly and small pleural effusions. Right lower lobe atelectasis versus developing pneumonia. Chest X-Ray 11/28/19 00:00 IMPRESSION: Good position of support apparatus. No pneumothorax. Head CT 11/28/19 12:44 IMPRESSION: 1. No acute intracranial hemorrhage or depressed calvarial fracture. Chronic changes of atrophy and microvascular ischemia. 2. Chronic pansinusitis, ENT consult recommended. 3. Complete opacification of the bilateral mastoid air cells with fluid at the middle ears, please correlate for otomastoiditis. EVIDENCE OF ACUTE STROKE: NO. Assessment & Plan - Diagnosis (1) CAD (coronary artery disease) Qualifiers: Coronary Disease-Associated Artery/Lesion type: unspecified vessel or lesion type Associated angina: without angina Is this a current diagnosis for this admission?: Yes Plan: Continue guideline directed medical therapy as feasible. Presently patient is intubated. (2) ICD (implantable cardioverter-defibrillator) in place Is this a current diagnosis for this admission?: Yes Plan: Site looked WNL (3) Congestive heart failure (CHF) Is this a current diagnosis for this admission?: Yes Plan: There may have been a component of volume overload. Echocardiogram that was done presently shows depressed left ventricular function as expected. However by echo her filling pressures are not that elevated. Would recommend maintenance diuretic. It probably is a component of aspiration perhaps. We will try to minimize solute and volume loading. Medical therapy for congestive heart failure as feasible given limitations with patient being on ventilator. We will have to watch fluid status carefully.
[2019-11-29 01:30] LABS: CREATINE KINASE MB 5.12 ng/mL (<4.55); TROPONIN I 0.855 ng/mL
[2019-11-29] MEDS: IPRATROPIUM/ALBUTEROL 0.5-2.5 MG/3 ML AMPUL NEB SCH ×4 (02:02→20:12)
[2019-11-29 04:03] LABS: ABSOLUTE BASOPHILS # (AUTO) 0.1 10^3/uL (0.0-0.2); ABSOLUTE EOSINOPHILS # (AUTO) 0.1 10^3/uL (0.0-0.6); ABSOLUTE LYMPHOCYTES (AUTO) 1.4 10^3/uL (0.5-4.7); ABSOLUTE MONOCYTES (AUTO) 0.8 10^3/uL (0.1-1.4); ABSOLUTE NEUT (AUTO) 5.4 10^3/uL (1.7-8.2); BASOPHILS % (AUTO) 0.9 % (0-2); EOSINOPHILS % (AUTO) 1.2 % (0-6); HEMATOCRIT 21.6 % (36.0-47.0); LYMPHOCYTES % (AUTO) 18.2 % (13-45); MEAN CORPUSCULAR HEMOGLOBIN 28.1 pg (27.0-33.4); MEAN CORPUSCULAR HGB CONC 32.7 g/dL (32.0-36.0); MONOCYTES % (AUTO) 10.3 % (3-13); PLATELET COUNT 133 10^3/uL (150-450); RED BLOOD COUNT 2.51 10^6/uL (3.72-5.28); RED CELL DISTRIBUTION WIDTH 18.5 % (11.5-14.0); SEGMENTED NEUTROPHILS % (AUTO) 69.4 % (42-78); TOTAL CELLS COUNTED % (AUTO) 100 %; WHITE BLOOD COUNT 7.8 10^3/uL (4.0-10.5)
[2019-11-29 04:04] LABS: HEMOGLOBIN 7.1 g/dL (12.0-15.5)
[2019-11-29 04:10] LABS: MEAN CORPUSCULAR VOLUME 86 fl (80-97)
[2019-11-29 04:36] LABS: PHOSPHORUS 4.5 mg/dL (2.5-4.5)
[2019-11-29] MEDS: FENTANYL CITRATE/PF 600 MCG/60 ML BAG IV PRN ×2 (05:07→16:30)
[2019-11-29] MEDS: HEPARIN SOD (PORCINE) 5,000 UNIT/ML 1 ML VIAL SUBCUT SCH ×3 (05:08→21:18)
[2019-11-29] MEDS: LEVOTHYROXINE SODIUM 0.05 MG TABLET PO SCH (05:08)
[2019-11-29] MEDS: ACETAMINOPHEN 325 MG TABLET PO SCH (05:08)
[2019-11-29] MEDS: NORMAL SALINE 1000 ML 1,000 ML IV PRN ×3 (05:09→22:57)
[2019-11-29] MEDS: CEFAZOLIN SODIUM 1.5 GM in DEXTROSE 5%-WATER 100 ML IV SCH ×3 (05:17→21:17)
[2019-11-29] MEDS ORDERED: FUROSEMIDE INJ/PF 40 MG/4 ML SDV IV ONE ×2 (05:38→18:30)
[2019-11-29 06:04] LABS: ALBUMIN 2.2 g/dL (3.5-5.0); ALKALINE PHOSPHATASE 202 U/L (38-126); ANION GAP 7 (5-19); ASPARTATE AMINO TRANSFERASE 53 U/L (14-36); BILIRUBIN,DIRECT 0.3 mg/dL (0.0-0.4); BILIRUBIN,TOTAL 0.3 mg/dL (0.2-1.3); BLOOD UREA NITROGEN 48 mg/dL (7-20); CALCIUM 8.2 mg/dL (8.4-10.2); CARBON DIOXIDE 22 mmol/L (22-30); CHLORIDE 110 mmol/L (98-107); GLUCOSE 88 mg/dL (75-110); TOTAL PROTEIN 4.8 g/dL (6.3-8.2)
[2019-11-29 06:15] LABS: POTASSIUM 3.6 mmol/L (3.6-5.0)
[2019-11-29] MEDS ORDERED: FUROSEMIDE INJ/PF 20 MG/2 ML SDV ONE (06:25)
--- NOTE | 2019-11-29 07:57 | PDOC PROGRESS REPORT ---
Subjective Progress Note for:: 11/29/19 Subjective:: Patient is unable to provide subjective due to intubation. She had progressive CHF yesterday after being provided with IV fluids for low urine output, dark urine, and concerns for dehydration. At this time she is on a ventilator however her condition has apparently been improving over night. Reason For Visit: PNEUMONIA Physical Exam Vital Signs: Temp Pulse Resp BP Pulse Ox 99.7 F 92 18 118/67 100 11/28/19 18:00 11/29/19 02:00 11/29/19 04:05 11/29/19 04:05 11/29/19 04:15 Pulse Oximeter Continuous Start: 11/26/19 1 4:10 Freq: RTQ4 Status: Complete Protocol: Document 11/28/19 12:25 [facility] (Rec: 11/28/19 12:27 [facility] [id number]) Pulse Oximetry Assessment Oxygen Saturation (92-100) 100 Oxygen Delivery Method Bi-pap Fraction of Inspired Oxygen (FIO2) 35 Equipment Usage Equipment in Use Continuous SpO2 Machine # 3 Intake & Output 11/28/19 11/29/19 11/30/19 06:59 06:59 06:59 Intake Total 4805 5663 Output Total 230 1315 Balance 4575 4348 Weight 56.4 kg 58.7 kg Physical Exam: Intubated on ventilator. Not responsive to verbal questioning at this time. Left lower extremity pulses 2+, wounds clean dry and intact, compartments soft, no excessive ecchymosis or swelling. Results Laboratory Results: 11/29/19 03:45 11/29/19 03:45 11/28/19 11/28/19 11/28/19 11:44 11:48 13:30 WBC RBC Hgb Hct MCV MCH MCHC RDW Plt Count Seg Neutrophils % Carbonic Acid 2.39 H 2.29 H HCO3/H2CO3 Ratio 9:1 10:1 ABG pH 7.08 L* 7.12 L* ABG pCO2 79.4 H* 76.1 H* ABG pO2 111.5 H 139.6 H ABG HCO3 23.1 24.4 H ABG O2 Saturation 95.8 97.8 ABG Base Excess -7.4 -5.2 FiO2 3L 35% Sodium Potassium Chloride Carbon Dioxide Anion Gap BUN Creatinine Est GFR ( Amer) Glucose Lactic Acid 0.6 L Calcium Phosphorus Magnesium Total Bilirubin AST Alkaline Phosphatase Ammonia Total Protein Albumin TSH Free T4 Free T3 pg/mL 11/28/19 11/28/19 11/28/19 13:30 13:30 13:30 WBC 11.0 H RBC 2.93 L Hgb 8.3 L Hct 26.2 L MCV 90 MCH 28.3 MCHC 31.7 L RDW 17.7 H Plt Count 148 L Seg Neutrophils % 80.0 H Carbonic Acid HCO3/H2CO3 Ratio ABG pH ABG pCO2 ABG pO2 ABG HCO3 ABG O2 Saturation ABG Base Excess FiO2 Sodium 138.1 Potassium 5.2 H Chloride 105 Carbon Dioxide 23 Anion Gap 10 BUN 50 H Creatinine 2.29 H Est GFR ( Amer) 25 L Glucose 157 H Lactic Acid Calcium 8.3 L Phosphorus 7.9 H Magnesium 1.7 Total Bilirubin 0.4 AST 51 H Alkaline Phosphatase 223 H Ammonia 10.8 Total Protein 5.5 L Albumin 2.7 L TSH Free T4 Free T3 pg/mL 11/28/19 11/28/19 11/28/19 13:30 13:30 16:30 WBC RBC Hgb Hct MCV MCH MCHC RDW Plt Count Seg Neutrophils % Carbonic Acid 1.49 H HCO3/H2CO3 Ratio 14:1 ABG pH 7.26 L ABG pCO2 49.6 H ABG pO2 85.4 ABG HCO3 21.9 ABG O2 Saturation 95.0 ABG Base Excess -4.9 FiO2 30% Sodium Potassium Chloride Carbon Dioxide Anion Gap BUN Creatinine Est GFR ( Amer) Glucose Lactic Acid < 0.5 L Calcium Phosphorus Magnesium Total Bilirubin AST Alkaline Phosphatase Ammonia Total Protein Albumin TSH 1.75 Free T4 0.88 Free T3 pg/mL 1.90 L 11/29/19 11/29/19 11/29/19 03:45 03:45 03:45 WBC 7.8 RBC 2.51 L Hgb 7.1 L Hct 21.6 L MCV 86 D MCH 28.1 MCHC 32.7 RDW 18.5 H Plt Count 133 L Seg Neutrophils % 69.4 Carbonic Acid HCO3/H2CO3 Ratio ABG pH ABG pCO2 ABG pO2 ABG HCO3 ABG O2 Saturation ABG Base Excess FiO2 Sodium 138.8 Potassium 3.6 D Chloride 110 H Carbon Dioxide 22 Anion Gap 7 BUN 48 H Creatinine 1.68 H Est GFR ( Amer) 36 L Glucose 88 Lactic Acid Calcium 8.2 L Phosphorus 4.5 D Magnesium 1.6 Total Bilirubin 0.3 AST 53 H Alkaline Phosphatase 202 H Ammonia Total Protein 4.8 L Albumin 2.2 L TSH Free T4 Free T3 pg/mL 11/26/19 11/26/19 11/26/19 09:20 15:23 19:04 Creatine Kinase CK-MB (CK-2) Troponin I 0.025 0.194 0.197 NT-Pro-B Natriuret Pep 1770 H 11/27/19 11/28/19 11/28/19 00:20 13:30 13:30 Creatine Kinase 319 H CK-MB (CK-2) 6.30 H Troponin I 0.237 0.556 NT-Pro-B Natriuret Pep 60337 H 11/28/19 11/28/19 11/28/19 13:30 13:30 16:30 Creatine Kinase Cancelled 340 H CK-MB (CK-2) Cancelled Troponin I NT-Pro-B Natriuret Pep 11/28/19 11/29/19 11/29/19 16:30 00:38 00:38 Creatine Kinase 301 H CK-MB (CK-2) 7.03 H 5.12 H Troponin I 0.563 0.855 NT-Pro-B Natriuret Pep 11/29/19 03:45 Creatine Kinase CK-MB (CK-2) Troponin I NT-Pro-B Natriuret Pep 69473 H Impressions: Humerus X-Ray 11/26/19 00:00 IMPRESSION: Fracture of the surgical neck extending into the anatomic neck. Fluoroscopy 11/27/19 00:00 IMPRESSION: IMAGE(S) OBTAINED DURING PROCEDURE. Hip X-Ray 11/27/19 00:00 IMPRESSION: IMAGE(S) OBTAINED DURING PROCEDURE. Abdomen/Pelvis CT 11/28/19 00:00 IMPRESSION: 1. Body wall edema. 2. Uterine fibroids. 3. Diverticulosis without evidence of diverticulitis. Cervical Spine CT 11/28/19 00:00 IMPRESSION: NO ACUTE OR SIGNIFICANT FINDINGS IN THE CERVICAL SPINE. Chest CT 11/28/19 00:00 IMPRESSION: Cardiomegaly and small pleural effusions. Right lower lobe atelectasis versus developing pneumonia. Chest X-Ray 11/28/19 00:00 IMPRESSION: Good position of support apparatus. No pneumothorax. Head CT 11/28/19 12:44 IMPRESSION: 1. No acute intracranial hemorrhage or depressed calvarial fracture. Chronic changes of atrophy and microvascular ischemia. 2. Chronic pansinusitis, ENT consult recommended. 3. Complete opacification of the bilateral mastoid air cells with fluid at the middle ears, please correlate for otomastoiditis. EVIDENCE OF ACUTE STROKE: NO. Assessment & Plan - Diagnosis (1) Closed intertrochanteric fracture of left hip Qualifiers: Encounter type: initial encounter Fracture alignment: nondisplaced Qualified Code(s): S72.145A - Nondisplaced intertrochanteric fracture of left femur, initial encounter for closed fracture Is this a current diagnosis for this admission?: Yes Plan: -Upon weaning off ventilator the patient is to return to activity as tolerated on her left hip. - Weightbearing as tolerated, no precautions, encourage out of bed YULIET for ADL training - PT/OT -aspirin 325 daily for DVT prophylaxis for 6 weeks -multimodal pain management to avoid excessive narcotics, including gabapentin, tramadol, Toradol, acetaminophen. May need to hold tramadol due to increased creatinine Encourage out of bed -Dressing should not be removed for 7 to 10 days until seen in the office -May shower with the dressing intact, if it starts to come off she should not get the incision wet. -I would like to follow the patient my office within the next 7 to [address] [place] [address]. in [place] office #: [phone] (2) Closed fracture of left proximal humerus Qualifiers: Encounter type: initial encounter Fracture morphology: unspecified fracture morphology Qualified Code(s): S42.202A - Unspecified fracture of upper end of left humerus, initial encounter for closed fracture Is this a current diagnosis for this admission?: Yes - Time Time Spent with patient: Less than 15 minutes
[2019-11-29] MEDS ORDERED: BUDESONIDE NEB 0.5 MG/2 ML AMPUL NEB SCH (08:00)
[2019-11-29] MEDS: MIDAZOLAM HCL 50 MG/100 ML RTUINJ IV PRN (09:19)
[2019-11-29 10:26] LABS: ARTERIAL BLOOD BASE EXCESS -2.4 mmol/L; ARTERIAL BLOOD H2CO3 1.37 mmol/L (1.05-1.35); ARTERIAL BLOOD HCO3 23.4 mmol/L (20-24); ARTERIAL BLOOD O2 SATURATION 73.6 % (94-98); ARTERIAL BLOOD PCO2 45.6 mmHg (35-45); ARTERIAL BLOOD PH 7.33 (7.35-7.45); ARTERIAL BLOOD PO2 41.9 mmHg (80-100); ARTERIAL BLOOD TOTAL CO2 24.8 mmol/L (21-25)
[2019-11-29 10:27] LABS: ARTERIAL BLOOD FIO2 30%
[2019-11-29 10:37] LABS: CREATINE KINASE MB 3.72 ng/mL (<4.55)
[2019-11-29 10:40] LABS: TROPONIN I 0.737 ng/mL
--- NOTE | 2019-11-29 10:57 | PDOC CRITICAL CARE PROG REPORT ---
General Date:: 11/29/19 ICU Day:: 2 Ventilator Day:: 2 Resuscitation Status: Full Code Events in the past 12 to 24 Hours:: Patient transported to ICU yesterday and intubated for hypercapnic respiratory failure. She developed a new holosystolic murmur and an echocardiogram was performed. She remains intubated this morning and is much more calm on her ventilatory. Reason for ICU Addmission:: hypercapnic respiratory failure - Medications: Medications reviewed and adjusted accordingly: Yes Physical Exam Vital Signs: Temp Pulse Resp BP Pulse Ox 99.0 F 92 18 97/59 L 100 11/29/19 07:49 11/29/19 09:13 11/29/19 09:13 11/29/19 07:49 11/29/19 09:13 Pulse Oximeter Continuous Start: 11/26/19 14:10 Freq: RTQ4 Status: Complete Protocol: Document 11/28/19 12:25 [facility] (Rec: 11/28/19 12:27 [facility] [id number]) Pulse Oximetry Assessment Oxygen Saturation (92-100) 100 Oxygen Delivery Method Bi-pap Fraction of Inspired Oxygen (FIO2) 35 Equipment Usage Equipment in Use Continuous SpO2 Machine # 3 Intake & Output 11/28/19 11/29/19 11/30/19 06:59 06:59 06:59 Intake Total 4805 5663 Output Total 230 1315 255 Balance 4575 4348 -255 Weight 56.4 kg 58.7 kg Weight/Height Weight 58.7 kg Height 5 ft 2 in General appearance: PRESENT: no acute distress, well-developed, well-nourished Head exam: PRESENT: atraumatic, normocephalic Eye exam: PRESENT: PERRLA. ABSENT: nystagmus Ear exam: PRESENT: normal external ear exam Mouth exam: PRESENT: moist, tongue midline Neck exam: ABSENT: carotid bruit, JVD, lymphadenopathy, thyromegaly Respiratory exam: PRESENT: crackles, symmetrical, unlabored. ABSENT: accessory muscle use Cardiovascular exam: PRESENT: RRR, systolic murmur. ABSENT: diastolic murmur Pulses: PRESENT: normal dorsalis pedis pul Vascular exam: PRESENT: normal capillary refill GI/Abdominal exam: PRESENT: normal bowel sounds, soft. ABSENT: distended, guarding, tenderness Rectal exam: PRESENT: deferred Gentrourinary exam: PRESENT: indwelling catheter Extremities exam: ABSENT: calf tenderness, pedal edema Musculoskeletal exam: PRESENT: normal inspection Neurological exam: PRESENT: CN II-XII grossly intact, other - sedated on versed drip and fentanyl Psychiatric exam: ABSENT: agitated, anxious Skin exam: PRESENT: dry, intact - incisional dressing in place., warm. ABSENT: cyanosis, rash Tubes/Lines: PRESENT: Endotracheal Tube, Central Line, Nasogastic Tube Laboratory/Radiographs Laboratory Results: 11/29/19 03:45 11/29/19 03:45 11/28/19 11/28/19 11/28/19 11:44 11:48 13:30 WBC RBC Hgb Hct MCV MCH MCHC RDW Plt Count Seg Neutrophils % Carbonic Acid 2.39 H 2.29 H HCO3/H2CO3 Ratio 9:1 10:1 ABG pH 7.08 L* 7.12 L* ABG pCO2 79.4 H* 76.1 H* ABG pO2 111.5 H 139.6 H ABG HCO3 23.1 24.4 H ABG O2 Saturation 95.8 97.8 ABG Base Excess -7.4 -5.2 FiO2 3L 35% Sodium Potassium Chloride Carbon Dioxide Anion Gap BUN Creatinine Est GFR ( Amer) Glucose Lactic Acid 0.6 L Calcium Phosphorus Magnesium Total Bilirubin AST Alkaline Phosphatase Ammonia Total Protein Albumin TSH Free T4 Free T3 pg/mL 11/28/19 11/28/19 11/28/19 13:30 13:30 13:30 WBC 11.0 H RBC 2.93 L Hgb 8.3 L Hct 26.2 L MCV 90 MCH 28.3 MCHC 31.7 L RDW 17.7 H Plt Count 148 L Seg Neutrophils % 80.0 H Carbonic Acid HCO3/H2CO3 Ratio ABG pH ABG pCO2 ABG pO2 ABG HCO3 ABG O2 Saturation ABG Base Excess FiO2 Sodium 138.1 Potassium 5.2 H Chloride 105 Carbon Dioxide 23 Anion Gap 10 BUN 50 H Creatinine 2.29 H Est GFR ( Amer) 25 L Glucose 157 H Lactic Acid Calcium 8.3 L Phosphorus 7.9 H Magnesium 1.7 Total Bilirubin 0.4 AST 51 H Alkaline Phosphatase 223 H Ammonia 10.8 Total Protein 5.5 L Albumin 2.7 L TSH Free T4 Free T3 pg/mL 11/28/19 11/28/19 11/28/19 13:30 13:30 16:30 WBC RBC Hgb Hct MCV MCH MCHC RDW Plt Count Seg Neutrophils % Carbonic Acid 1.49 H HCO3/H2CO3 Ratio 14:1 ABG pH 7.26 L ABG pCO2 49.6 H ABG pO2 85.4 ABG HCO3 21.9 ABG O2 Saturation 95.0 ABG Base Excess -4.9 FiO2 30% Sodium Potassium Chloride Carbon Dioxide Anion Gap BUN Creatinine Est GFR ( Amer) Glucose Lactic Acid < 0.5 L Calcium Phosphorus Magnesium Total Bilirubin AST Alkaline Phosphatase Ammonia Total Protein Albumin TSH 1.75 Free T4 0.88 Free T3 pg/mL 1.90 L 11/29/19 11/29/19 11/29/19 03:45 03:45 03:45 WBC 7.8 RBC 2.51 L Hgb 7.1 L Hct 21.6 L MCV 86 D MCH 28.1 MCHC 32.7 RDW 18.5 H Plt Count 133 L Seg Neutrophils % 69.4 Carbonic Acid HCO3/H2CO3 Ratio ABG pH ABG pCO2 ABG pO2 ABG HCO3 ABG O2 Saturation ABG Base Excess FiO2 Sodium 138.8 Potassium 3.6 D Chloride 110 H Carbon Dioxide 22 Anion Gap 7 BUN 48 H Creatinine 1.68 H Est GFR ( Amer) 36 L Glucose 88 Lactic Acid Calcium 8.2 L Phosphorus 4.5 D Magnesium 1.6 Total Bilirubin 0.3 AST 53 H Alkaline Phosphatase 202 H Ammonia Total Protein 4.8 L Albumin 2.2 L TSH Free T4 Free T3 pg/mL 11/29/19 09:52 WBC RBC Hgb Hct MCV MCH MCHC RDW Plt Count Seg Neutrophils % Carbonic Acid 1.37 H HCO3/H2CO3 Ratio 17:1 ABG pH 7.33 L ABG pCO2 45.6 H ABG pO2 41.9 L ABG HCO3 23.4 ABG O2 Saturation 73.6 L ABG Base Excess -2.4 FiO2 30% Sodium Potassium Chloride Carbon Dioxide Anion Gap BUN Creatinine Est GFR ( Amer) Glucose Lactic Acid Calcium Phosphorus Magnesium Total Bilirubin AST Alkaline Phosphatase Ammonia Total Protein Albumin TSH Free T4 Free T3 pg/mL 11/26/19 11/26/19 11/26/19 09:20 15:23 19:04 Creatine Kinase CK-MB (CK-2) Troponin I 0.025 0.194 0.197 NT-Pro-B Natriuret Pep 1770 H 11/27/19 11/28/19 11/28/19 00:20 13:30 13:30 Creatine Kinase 319 H CK-MB (CK-2) 6.30 H Troponin I 0.237 0.556 NT-Pro-B Natriuret Pep 26114 H 11/28/19 11/28/19 11/28/19 13:30 13:30 16:30 Creatine Kinase Cancelled 340 H CK-MB (CK-2) Cancelled Troponin I NT-Pro-B Natriuret Pep 11/28/19 11/29/19 11/29/19 16:30 00:38 00:38 Creatine Kinase 301 H CK-MB (CK-2) 7.03 H 5.12 H Troponin I 0.563 0.855 NT-Pro-B Natriuret Pep 11/29/19 11/29/19 03:45 09:52 Creatine Kinase 262 H CK-MB (CK-2) Troponin I NT-Pro-B Natriuret Pep 37787 H Impressions: Humerus X-Ray 11/26/19 00:00 IMPRESSION: Fracture of the surgical neck extending into the anatomic neck. Fluoroscopy 11/27/19 00:00 IMPRESSION: IMAGE(S) OBTAINED DURING PROCEDURE. Hip X-Ray 11/27/19 00:00 IMPRESSION: IMAGE(S) OBTAINED DURING PROCEDURE. Abdomen/Pelvis CT 11/28/19 00:00 IMPRESSION: 1. Body wall edema. 2. Uterine fibroids. 3. Diverticulosis without evidence of diverticulitis. Cervical Spine CT 11/28/19 00:00 IMPRESSION: NO ACUTE OR SIGNIFICANT FINDINGS IN THE CERVICAL SPINE. Chest CT 11/28/19 00:00 IMPRESSION: Cardiomegaly and small pleural effusions. Right lower lobe atelectasis versus developing pneumonia. Chest X-Ray 11/28/19 00:00 IMPRESSION: Good position of support apparatus. No pneumothorax. Head CT 11/28/19 12:44 IMPRESSION: 1. No acute intracranial hemorrhage or depressed calvarial fracture. Chronic changes of atrophy and microvascular ischemia. 2. Chronic pansinusitis, ENT consult recommended. 3. Complete opacification of the bilateral mastoid air cells with fluid at the middle ears, please correlate for otomastoiditis. EVIDENCE OF ACUTE STROKE: NO. All labs, radiographs, diagnostic studies and EKGs were personally reviewed: Yes In addition, reports of radiographic and diagnostic studies were read: Yes Assessment and Plan - Diagnosis (1) PIEDAD (acute kidney injury) Is this a current diagnosis for this admission?: Yes Plan: Improving but still not back to baseline. Patient making copious urine. Will continue to diurese and provide hydration. (2) Acute and chronic respiratory failure with hypercapnia Is this a current diagnosis for this admission?: Yes Plan: ABG this morning shows near normal values. Still has a minor respiratory acidosis. Will wean sedtion today. Will also consider transition to spontane ous mode depending on ability to wean sedation. (3) CAD (coronary artery disease) Qualifiers: Coronary Disease-Associated Artery/Lesion type: unspecified vessel or lesion type Associated angina: without angina Is this a current diagnosis for this admission?: Yes Plan: No changes to be made at this time. Last Troponin continued to elevate--will follow serially and defer recs to cardiology. (4) COPD (chronic obstructive pulmonary disease) Qualifiers: COPD type: unspecified COPD Qualified Code(s): J44.9 - Chronic obstructive pulmonary disease, unspecified Is this a current diagnosis for this admission?: Yes Plan: Resume home inhalers once extubated. Pulmicort and duonebs presently. (5) Closed fracture of left proximal humerus Qualifiers: Encounter type: initial encounter Fracture morphology: unspecified fracture morphology Qualified Code(s): S42.202A - Unspecified fracture of upper end of left humerus, initial encounter for closed fracture Is this a current diagnosis for this admission?: Yes Plan: Plan per ortho--sling/non-operative. (6) Closed intertrochanteric fracture of left hip Qualifiers: Encounter type: initial encounter Fracture alignment: nondisplaced Qualified Code(s): S72.145A - Nondisplaced intertrochanteric fracture of left femur, initial encounter for closed fracture Is this a current diagnosis for this admission?: Yes Plan: Plan per ortho. Will resume ambulation as able and PT once off ventilator (7) Hyperkalemia Is this a current diagnosis for this admission?: Yes Plan: Resolved with hydration and resuming lasix (8) Hyperlipidemia Is this a current diagnosis for this admission?: Yes Plan: Continue home regimen (9) Hypertension Qualifiers: Hypertension type: essential hypertension Qualified Code(s): I10 - Essential (primary) hypertension Is this a current diagnosis for this admission?: Yes Plan: Borderline hypotensive at present--will hold all home meds until through this acute process (10) ICD (implantable cardioverter-defibrillator) in place Is this a current diagnosis for this admission?: Yes Plan: functioning normal per cardiology (11) Congestive heart failure (CHF) Is this a current diagnosis for this admission?: Yes Plan: BNP decreasing. Echo with poor EF (~20%) and mild MR. Left heart pressures not elevated so does not appear to be in circulatory overload, however, she responded well to lasix with better pressure and oxygenation. Remains fluid positive. Will continue to diurese and manage medically. Critical Time Critical Time (minutes): 60 Level of Care: ICU Anticipated discharge: Acute Rehab -: 1. The care of a critical patient is a dynamic process. This note is a title insurance sales representative synopsis but static in nature. The timeframe for treatments given in order is not necessarily the actual time these treatments may have been done. 2. This patient requires critical care secondary to ongoing requirements for therapy not offered or safe outside the critical care environment. Transfer to a lower level of care will result in altered life or limb morbidity and mortality. 3. Multidisciplinary rounds completed. 4. ABCDE bundle addressed.
--- NOTE | 2019-11-29 11:08 | PDOC PROGRESS REPORT ---
Subjective Progress Note for:: 11/29/19 Subjective:: Patient status post surgery for hip fracture. Patient remains intubated and in the intensive care unit. She has responded well to diuretics. Echocardiogram as expected showed LV dysfunction which was moderate to severe. Filling pressures were not that significantly elevated. Reason For Visit: PNEUMONIA Physical Exam Vital Signs: Temp Pulse Resp BP Pulse Ox 99.3 F 106 H 18 110/62 100 11/29/19 10:00 11/29/19 10:00 11/29/19 10:00 11/29/19 10:00 11/29/19 10:00 Pulse Oximeter Continuous Start: 11/26/19 14:10 Freq: RTQ4 Status: Complete Protocol: Document 11/28/19 12:25 [facility] (Rec: 11/28/19 12:27 [facility] [id number]) Pulse Oximetry Assessment Oxygen Saturation (92-100) 100 Oxygen Delivery Method Bi-pap Fraction of Inspired Oxygen (FIO2) 35 Equipment Usage Equipment in Use Continuous SpO2 Machine # 3 Intake & Output 11/28/19 11/29/19 11/30/19 06:59 06:59 06:59 Intake Total 4805 5663 Output Total 230 1315 800 Balance 4575 4348 -800 Weight 56.4 kg 58.7 kg General appearance: PRESENT: other - Sedated. Comfortable. On respiratory support invasively. Head exam: PRESENT: atraumatic, normocephalic Mouth exam: PRESENT: moist Neck exam: PRESENT: JVD Respiratory exam: PRESENT: other - Ventilator assisted breath sounds. Lungs appear to be clear rare compared to yesterday. Cardiovascular exam: PRESENT: RRR, +S1, +S2 GI/Abdominal exam: PRESENT: soft Rectal exam: PRESENT: deferred Neurological exam: PRESENT: alert, altered, awake, oriented to person, oriented to place, oriented to time Psychiatric exam: PRESENT: appropriate affect Skin exam: PRESENT: dry, intact, normal color Results Laboratory Results: 11/29/19 03:45 11/29/19 03:45 11/28/19 11/28/19 11/28/19 11:44 11:48 13:30 WBC RBC Hgb Hct MCV MCH MCHC RDW Plt Count Seg Neutrophils % Carbonic Acid 2.39 H 2.29 H HCO3/H2CO3 Ratio 9:1 10:1 ABG pH 7.08 L* 7.12 L* ABG pCO2 79.4 H* 76.1 H* ABG pO2 111.5 H 139.6 H ABG HCO3 23.1 24.4 H ABG O2 Saturation 95.8 97.8 ABG Base Excess -7.4 -5.2 FiO2 3L 35% Sodium Potassium Chloride Carbon Dioxide Anion Gap BUN Creatinine Est GFR ( Amer) Glucose Lactic Acid 0.6 L Calcium Phosphorus Magnesium Total Bilirubin AST Alkaline Phosphatase Ammonia Total Protein Albumin TSH Free T4 Free T3 pg/mL 11/28/19 11/28/19 11/28/19 13:30 13:30 13:30 WBC 11.0 H RBC 2.93 L Hgb 8.3 L Hct 26.2 L MCV 90 MCH 28.3 MCHC 31.7 L RDW 17.7 H Plt Count 148 L Seg Neutrophils % 80.0 H Carbonic Acid HCO3/H2CO3 Ratio ABG pH ABG pCO2 ABG pO2 ABG HCO3 ABG O2 Saturation ABG Base Excess FiO2 Sodium 138.1 Potassium 5.2 H Chloride 105 Carbon Dioxide 23 Anion Gap 10 BUN 50 H Creatinine 2.29 H Est GFR ( Amer) 25 L Glucose 157 H Lactic Acid Calcium 8.3 L Phosphorus 7.9 H Magnesium 1.7 Total Bilirubin 0.4 AST 51 H Alkaline Phosphatase 223 H Ammonia 10.8 Total Protein 5.5 L Albumin 2.7 L TSH Free T4 Free T3 pg/mL 11/28/19 11/28/19 11/28/19 13:30 13:30 16:30 WBC RBC Hgb Hct MCV MCH MCHC RDW Plt Count Seg Neutrophils % Carbonic Acid 1.49 H HCO3/H2CO3 Ratio 14:1 ABG pH 7.26 L ABG pCO2 49.6 H ABG pO2 85.4 ABG HCO3 21.9 ABG O2 Saturation 95.0 ABG Base Excess -4.9 FiO2 30% Sodium Potassium Chloride Carbon Dioxide Anion Gap BUN Creatinine Est GFR ( Amer) Glucose Lactic Acid < 0.5 L Calcium Phosphorus Magnesium Total Bilirubin AST Alkaline Phosphatase Ammonia Total Protein Albumin TSH 1.75 Free T4 0.88 Free T3 pg/mL 1.90 L 11/29/19 11/29/19 11/29/19 03:45 03:45 03:45 WBC 7.8 RBC 2.51 L Hgb 7.1 L Hct 21.6 L MCV 86 D MCH 28.1 MCHC 32.7 RDW 18.5 H Plt Count 133 L Seg Neutrophils % 69.4 Carbonic Acid HCO3/H2CO3 Ratio ABG pH ABG pCO2 ABG pO2 ABG HCO3 ABG O2 Saturation ABG Base Excess FiO2 Sodium 138.8 Potassium 3.6 D Chloride 110 H Carbon Dioxide 22 Anion Gap 7 BUN 48 H Creatinine 1.68 H Est GFR ( Amer) 36 L Glucose 88 Lactic Acid Calcium 8.2 L Phosphorus 4.5 D Magnesium 1.6 Total Bilirubin 0.3 AST 53 H Alkaline Phosphatase 202 H Ammonia Total Protein 4.8 L Albumin 2.2 L TSH Free T4 Free T3 pg/mL 11/29/19 09:52 WBC RBC Hgb Hct MCV MCH MCHC RDW Plt Count Seg Neutrophils % Carbonic Acid 1.37 H HCO3/H2CO3 Ratio 17:1 ABG pH 7.33 L ABG pCO2 45.6 H ABG pO2 41.9 L ABG HCO3 23.4 ABG O2 Saturation 73.6 L ABG Base Excess -2.4 FiO2 30% Sodium Potassium Chloride Carbon Dioxide Anion Gap BUN Creatinine Est GFR ( Amer) Glucose Lactic Acid Calcium Phosphorus Magnesium Total Bilirubin AST Alkaline Phosphatase Ammonia Total Protein Albumin TSH Free T4 Free T3 pg/mL 11/26/19 11/26/19 11/26/19 09:20 15:23 19:04 Creatine Kinase CK-MB (CK-2) Troponin I 0.025 0.194 0.197 NT-Pro-B Natriuret Pep 1770 H 11/27/19 11/28/19 11/28/19 00:20 13:30 13:30 Creatine Kinase 319 H CK-MB (CK-2) 6.30 H Troponin I 0.237 0.556 NT-Pro-B Natriuret Pep 24822 H 11/28/19 11/28/19 11/28/19 13:30 13:30 16:30 Creatine Kinase Cancelled 340 H CK-MB (CK-2) Cancelled Troponin I NT-Pro-B Natriuret Pep 11/28/19 11/29/19 11/29/19 16:30 00:38 00:38 Creatine Kinase 301 H CK-MB (CK-2) 7.03 H 5.12 H Troponin I 0.563 0.855 NT-Pro-B Natriuret Pep 11/29/19 11/29/19 11/29/19 03:45 09:52 09:52 Creatine Kinase 262 H CK-MB (CK-2) 3.72 Troponin I 0.737 NT-Pro-B Natriuret Pep 19749 H Impressions: Humerus X-Ray 11/26/19 00:00 IMPRESSION: Fracture of the surgical neck extending into the anatomic neck. Fluoroscopy 11/27/19 00:00 IMPRESSION: IMAGE(S) OBTAINED DURING PROCEDURE. Hip X-Ray 11/27/19 00:00 IMPRESSION: IMAGE(S) OBTAINED DURING PROCEDURE. Abdomen/Pelvis CT 11/28/19 00:00 IMPRESSION: 1. Body wall edema. 2. Uterine fibroids. 3. Diverticulosis without evidence of diverticulitis. Cervical Spine CT 11/28/19 00:00 IMPRESSION: NO ACUTE OR SIGNIFICANT FINDINGS IN THE CERVICAL SPINE. Chest CT 11/28/19 00:00 IMPRESSION: Cardiomegaly and small pleural effusions. Right lower lobe atelectasis versus developing pneumonia. Chest X-Ray 11/28/19 00:00 IMPRESSION: Good position of support apparatus. No pneumothorax. Head CT 11/28/19 12:44 IMPRESSION: 1. No acute intracranial hemorrhage or depressed calvarial fracture. Chronic changes of atrophy and microvascular ischemia. 2. Chronic pansinusitis, ENT consult recommended. 3. Complete opacification of the bilateral mastoid air cells with fluid at the middle ears, please correlate for otomastoiditis. EVIDENCE OF ACUTE STROKE: NO. Assessment & Plan - Diagnosis (1) CAD (coronary artery disease) Qualifiers: Coronary Disease-Associated Artery/Lesion type: unspecified vessel or lesion type Associated angina: without angina Is this a current diagnosis for this admission?: Yes Plan: Continue guideline directed medical therapy as feasible. Presently patient is intubated. Mild elevated troponins probably secondary to elevated filling pressure and congestive heart failure. Unlikely to be acute coronary syndrome. (2) ICD (implantable cardioverter-defibrillator) in place Is this a current diagnosis for this admission?: Yes Plan: Site looked WNL (3) Congestive heart failure (CHF) Is this a current diagnosis for this admission?: Yes Plan: There may have been a component of volume overload. Echocardiogram that was done presently shows depressed left ventricular function as expected. However by echo her filling pressures are not that elevated. Would recommend maintenance diuretic. I would continue diuretic for today. Watch volume status.
[2019-11-29 11:45] LABS: ANION GAP 9 (5-19); BLOOD UREA NITROGEN 45 mg/dL (7-20); CALCIUM 8.4 mg/dL (8.4-10.2); CARBON DIOXIDE 21 mmol/L (22-30); CHLORIDE 109 mmol/L (98-107); GLUCOSE 95 mg/dL (75-110); PHOSPHORUS 4.2 mg/dL (2.5-4.5); POTASSIUM 3.5 mmol/L (3.6-5.0)
[2019-11-29] MEDS: METOPROLOL SUCCINATE 50 MG TAB.SR.24H PO SCH (12:09)
[2019-11-29] MEDS: LOSARTAN POTASSIUM 25 MG TABLET PO SCH (12:09)
[2019-11-29] MEDS: AZITHROMYCIN 500 MG in DEXTROSE 5%-WATER 250 ML IV SCH (12:09)
[2019-11-29] MEDS: FAMOTIDINE 20 MG TABLET PO SCH ×2 (12:09→21:18)
[2019-11-29] MEDS: OXYBUTYNIN CHLORIDE 5 MG TABLET PO SCH ×2 (12:09→18:21)
[2019-11-29] MEDS: ISOSORBIDE MONONITRATE 30 MG TAB.ER.24H PO SCH ×2 (12:09→18:21)
[2019-11-29] MEDS: FOLIC ACID 1 MG TABLET PO SCH (12:10)
[2019-11-29] MEDS: RANOLAZINE 500 MG TAB.SR.12H PO SCH ×2 (12:13→21:19)
[2019-11-29 15:31] LABS: HEMATOCRIT 23.8 % (36.0-47.0); MEAN CORPUSCULAR HEMOGLOBIN 28.2 pg (27.0-33.4); MEAN CORPUSCULAR HGB CONC 32.9 g/dL (32.0-36.0); MEAN CORPUSCULAR VOLUME 86 fl (80-97); PLATELET COUNT 158 10^3/uL (150-450); RED BLOOD COUNT 2.78 10^6/uL (3.72-5.28); RED CELL DISTRIBUTION WIDTH 18.8 % (11.5-14.0); WHITE BLOOD COUNT 10.6 10^3/uL (4.0-10.5)
[2019-11-29 15:34] LABS: HEMOGLOBIN 7.8 g/dL (12.0-15.5)
[2019-11-29] MEDS ORDERED: FUROSEMIDE INJ/PF 40 MG/4 ML SDV ONE (18:20)
[2019-11-29 18:42] LABS: ARTERIAL BLOOD BASE EXCESS -4.4 mmol/L; ARTERIAL BLOOD FIO2 30%; ARTERIAL BLOOD H2CO3 1.16 mmol/L (1.05-1.35); ARTERIAL BLOOD HCO3 20.8 mmol/L (20-24); ARTERIAL BLOOD PCO2 38.6 mmHg (35-45); ARTERIAL BLOOD PH 7.35 (7.35-7.45); ARTERIAL BLOOD PO2 94.8 mmHg (80-100)
[2019-11-29] MEDS: POTASSIUM CHLORIDE 20 MEQ/50 ML RTU IV SCH (22:49)
[2019-11-29] MEDS: MAGNESIUM SULFATE 1 GM/D5W 100 ML IV SCH (22:50)
[2019-11-30] MEDS: MAGNESIUM SULFATE 1 GM/D5W 100 ML IV SCH (00:16)
[2019-11-30] MEDS: POTASSIUM CHLORIDE 20 MEQ/50 ML RTU IV SCH (00:18)
[2019-11-30] MEDS: IPRATROPIUM/ALBUTEROL 0.5-2.5 MG/3 ML AMPUL NEB SCH ×4 (02:48→20:52)
[2019-11-30] MEDS: FENTANYL CITRATE/PF 600 MCG/60 ML BAG IV PRN (03:43)
[2019-11-30 03:54] LABS: ABSOLUTE BASOPHILS # (AUTO) 0.1 10^3/uL (0.0-0.2); ABSOLUTE EOSINOPHILS # (AUTO) 0.1 10^3/uL (0.0-0.6); ABSOLUTE LYMPHOCYTES (AUTO) 1.6 10^3/uL (0.5-4.7); ABSOLUTE MONOCYTES (AUTO) 1.2 10^3/uL (0.1-1.4); ABSOLUTE NEUT (AUTO) 7.6 10^3/uL (1.7-8.2); EOSINOPHILS % (AUTO) 1.2 % (0-6); HEMATOCRIT 24.2 % (36.0-47.0); LYMPHOCYTES % (AUTO) 15.1 % (13-45); MEAN CORPUSCULAR HEMOGLOBIN 28.2 pg (27.0-33.4); MEAN CORPUSCULAR HGB CONC 32.8 g/dL (32.0-36.0); MEAN CORPUSCULAR VOLUME 86 fl (80-97); MONOCYTES % (AUTO) 11.5 % (3-13); PLATELET COUNT 185 10^3/uL (150-450); RED BLOOD COUNT 2.82 10^6/uL (3.72-5.28); RED CELL DISTRIBUTION WIDTH 18.9 % (11.5-14.0); SEGMENTED NEUTROPHILS % (AUTO) 71.2 % (42-78); TOTAL CELLS COUNTED % (AUTO) 100 %; WHITE BLOOD COUNT 10.6 10^3/uL (4.0-10.5)
[2019-11-30 03:59] LABS: HEMOGLOBIN 7.9 g/dL (12.0-15.5)
[2019-11-30 04:05] LABS: ALBUMIN 2.3 g/dL (3.5-5.0); ALKALINE PHOSPHATASE 251 U/L (38-126); ANION GAP 8 (5-19); ASPARTATE AMINO TRANSFERASE 40 U/L (14-36); BILIRUBIN,DIRECT 0.3 mg/dL (0.0-0.4); BILIRUBIN,TOTAL 0.5 mg/dL (0.2-1.3); BLOOD UREA NITROGEN 34 mg/dL (7-20); CALCIUM 8.7 mg/dL (8.4-10.2); CARBON DIOXIDE 24 mmol/L (22-30); CHLORIDE 107 mmol/L (98-107); GLUCOSE 117 mg/dL (75-110); PHOSPHORUS 3.4 mg/dL (2.5-4.5); POTASSIUM 3.9 mmol/L (3.6-5.0)
[2019-11-30] MEDS: HEPARIN SOD (PORCINE) 5,000 UNIT/ML 1 ML VIAL SUBCUT SCH ×3 (05:15→21:21)
[2019-11-30] MEDS: LEVOTHYROXINE SODIUM 0.05 MG TABLET PO SCH (05:15)
[2019-11-30] MEDS: CEFAZOLIN SODIUM 1.5 GM in DEXTROSE 5%-WATER 100 ML IV SCH (05:16)
[2019-11-30] MEDS: NORMAL SALINE 1000 ML 1,000 ML IV PRN ×2 (05:16→15:34)
[2019-11-30] MEDS: LOSARTAN POTASSIUM 25 MG TABLET PO SCH (09:21)
[2019-11-30] MEDS: FOLIC ACID 1 MG TABLET PO SCH (09:21)
[2019-11-30] MEDS: ISOSORBIDE MONONITRATE 30 MG TAB.ER.24H PO SCH ×2 (09:22→17:39)
[2019-11-30] MEDS: METOPROLOL SUCCINATE 50 MG TAB.SR.24H PO SCH (09:22)
[2019-11-30] MEDS: RANOLAZINE 500 MG TAB.SR.12H PO SCH ×2 (09:22→21:19)
[2019-11-30] MEDS: OXYBUTYNIN CHLORIDE 5 MG TABLET PO SCH ×2 (09:22→17:38)
[2019-11-30] MEDS: FAMOTIDINE 20 MG TABLET PO SCH ×2 (09:22→21:19)
--- NOTE | 2019-11-30 09:27 | PDOC CRITICAL CARE PROG REPORT ---
General Date:: 11/30/19 ICU Day:: 2 Ventilator Day:: 2 Resuscitation Status: Full Code Events in the past 12 to 24 Hours:: Weaning more successfully. Review of systems relevant to events:: Respiratory and neuro. Reason for ICU Addmission:: hypercapnic respiratory failure - Medications: Medications reviewed and adjusted accordingly: Yes Vasopressors:: None Sedation:: Fentanyl. Physical Exam Vital Signs: Temp Pulse Resp BP Pulse Ox 99.3 F 99 15 136/75 H 99 11/30/19 08:00 11/30/19 08:17 11/30/19 08:17 11/30/19 08:00 11/30/19 08:17 Pulse Oximeter Continuous Start: 11/26/19 14:10 Freq: RTQ4 Status: Complete Protocol: Document 11/28/19 12:25 [facility] (Rec: 11/28/19 12:27 [facility] [id number]) Pulse Oximetry Assessment Oxygen Saturation (92-100) 100 Oxygen Delivery Method Bi-pap Fraction of Inspired Oxygen (FIO2) 35 Equipment Usage Equipment in Use Continuous SpO2 Machine # 3 Intake & Output 11/29/19 11/30/19 12/01/19 06:59 06:59 06:59 Intake Total 5663 3410 Output Total 1315 4230 50 Balance 4348 -820 -50 Weight 58.7 kg 59.2 kg Weight/Height Weight 59.2 kg Height 5 ft 2 in General appearance: PRESENT: no acute distress, other - Sedated. Head exam: PRESENT: atraumatic, normocephalic Eye exam: PRESENT: conjunctiva pink, EOMI, PERRLA. ABSENT: scleral icterus Ear exam: PRESENT: normal external ear exam Mouth exam: PRESENT: moist, tongue midline Respiratory exam: PRESENT: decreased breath sounds, unlabored Cardiovascular exam: PRESENT: RRR. ABSENT: diastolic murmur, rubs, systolic murmur GI/Abdominal exam: PRESENT: normal bowel sounds, soft. ABSENT: distended, guarding, mass, organolmegaly, rebound, tenderness Rectal exam: PRESENT: deferred Gentrourinary exam: PRESENT: indwelling catheter Extremities exam: PRESENT: other - Surgery for L sliding screw repair has dressing applied. No bleeding, obvious drainage. Musculoskeletal exam: PRESENT: tenderness Neurological exam: PRESENT: other - Sedated Skin exam: PRESENT: dry, intact, warm. ABSENT: cyanosis, rash Tubes/Lines: PRESENT: Endotracheal Tube, Nasogastic Tube Laboratory/Radiographs Laboratory Results: 11/30/19 03:35 11/30/19 03:35 11/29/19 11/29/19 11/29/19 09:52 09:52 15:00 WBC 10.6 H RBC 2.78 L Hgb 7.8 L Hct 23.8 L MCV 86 MCH 28.2 MCHC 32.9 RDW 18.8 H Plt Count 158 Seg Neutrophils % Carbonic Acid 1.37 H HCO3/H2CO3 Ratio 17:1 ABG pH 7.33 L ABG pCO2 45.6 H ABG pO2 41.9 L ABG HCO3 23.4 ABG O2 Saturation 73.6 L ABG Base Excess -2.4 FiO2 30% Sodium 139.0 Potassium 3.5 L Chloride 109 H Carbon Dioxide 21 L Anion Gap 9 BUN 45 H Creatinine 1.53 H Est GFR ( Amer) 40 L Glucose 95 Calcium 8.4 Phosphorus 4.2 Magnesium 1.5 L Total Bilirubin AST Alkaline Phosphatase Total Protein Albumin 11/29/19 11/30/19 11/30/19 18:00 03:35 03:35 WBC 10.6 H RBC 2.82 L Hgb 7.9 L Hct 24.2 L MCV 86 MCH 28.2 MCHC 32.8 RDW 18.9 H Plt Count 185 Seg Neutrophils % 71.2 Carbonic Acid 1.16 HCO3/H2CO3 Ratio 17:1 ABG pH 7.35 ABG pCO2 38.6 ABG pO2 94.8 ABG HCO3 20.8 ABG O2 Saturation 97.0 ABG Base Excess -4.4 FiO2 30% Sodium 139.2 Potassium 3.9 Chloride 107 Carbon Dioxide 24 Anion Gap 8 BUN 34 H Creatinine 1.13 Est GFR ( Amer) 57 L Glucose 117 H Calcium 8.7 Phosphorus 3.4 Magnesium 1.9 Total Bilirubin 0.5 AST 40 H Alkaline Phosphatase 251 H Total Protein 5.0 L Albumin 2.3 L 11/28/19 16:20 Tracheal Aspirate Gram Stain - Final 11/26/19 11/26/19 11/26/19 09:20 15:23 19:04 Creatine Kinase CK-MB (CK-2) Troponin I 0.025 0.194 0.197 NT-Pro-B Natriuret Pep 1770 H 11/27/19 11/28/19 11/28/19 00:20 13:30 13:30 Creatine Kinase 319 H CK-MB (CK-2) 6.30 H Troponin I 0.237 0.556 NT-Pro-B Natriuret Pep 96171 H 11/28/19 11/28/19 11/28/19 13:30 13:30 16:30 Creatine Kinase Cancelled 340 H CK-MB (CK-2) Cancelled Troponin I NT-Pro-B Natriuret Pep 11/28/19 11/29/19 11/29/19 16:30 00:38 00:38 Creatine Kinase 301 H CK-MB (CK-2) 7.03 H 5.12 H Troponin I 0.563 0.855 NT-Pro-B Natriuret Pep 11/29/19 11/29/19 11/29/19 03:45 09:52 09:52 Creatine Kinase 262 H CK-MB (CK-2) 3.72 Troponin I 0.737 NT-Pro-B Natriuret Pep 83104 H 11/30/19 03:35 Creatine Kinase CK-MB (CK-2) Troponin I NT-Pro-B Natriuret Pep 27247 H Impressions: Humerus X-Ray 11/26/19 00:00 IMPRESSION: Fracture of the surgical neck extending into the anatomic neck. Fluoroscopy 11/27/19 00:00 IMPRESSION: IMAGE(S) OBTAINED DURING PROCEDURE. Hip X-Ray 11/27/19 00:00 IMPRESSION: IMAGE(S) OBTAINED DURING PROCEDURE. Abdomen/Pelvis CT 11/28/19 00:00 IMPRESSION: 1. Body wall edema. 2. Uterine fibroids. 3. Diverticulosis without evidence of diverticulitis. Cervical Spine CT 11/28/19 00:00 IMPRESSION: NO ACUTE OR SIGNIFICANT FINDINGS IN THE CERVICAL SPINE. Chest CT 11/28/19 00:00 IMPRESSION: Cardiomegaly and small pleural effusions. Right lower lobe atelectasis versus developing pneumonia. Chest X-Ray 11/28/19 00:00 IMPRESSION: Good position of support apparatus. No pneumothorax. Head CT 11/28/19 12:44 IMPRESSION: 1. No acute intracranial hemorrhage or depressed calvarial fracture. Chronic changes of atrophy and microvascular ischemia. 2. Chronic pansinusitis, ENT consult recommended. 3. Complete opacification of the bilateral mastoid air cells with fluid at the middle ears, please correlate for otomastoiditis. EVIDENCE OF ACUTE STROKE: NO. All labs, radiographs, diagnostic studies and EKGs were personally reviewed: Yes In addition, reports of radiographic and diagnostic studies were read: Yes Assessment and Plan - Diagnosis (1) Acute and chronic respiratory failure with hypercapnia Is this a current diagnosis for this admission?: Yes Plan: The main reason she is intubated with a component of CHF with preserved EF. She is weaning successfully and hope to extubate later today when more awake. (2) Acute metabolic encephalopathy Is this a current diagnosis for this admission?: Yes Plan: Hard to assesss with ETT and fentanyl. I expect there to be some residual after extubation. (3) CAD (coronary artery disease) Qualifiers: Coronary Disease-Associated Artery/Lesion type: unspecified vessel or lesion type Associated angina: without angina Is this a current diagnosis for this admission?: Yes Plan: So far this has been quite stable. (4) COPD (chronic obstructive pulmonary disease) Qualifiers: COPD type: unspecified COPD Qualified Code(s): J44.9 - Chronic obstructive pulmonary disease, unspecified Is this a current diagnosis for this admission?: Yes Plan: Symbacort reordered. No wheezing. Seems resolved. (5) Closed fracture of left proximal humerus Qualifiers: Encounter type: initial encounter Fracture morphology: unspecified fracture morphology Qualified Code(s): S42.202A - Unspecified fracture of upper end of left humerus, initial encounter for closed fracture Is this a current diagnosis for this admission?: Yes Plan: Resolved with surgery. Ambulate when able. (6) ICD (implantable cardioverter-defibrillator) in place Is this a current diagnosis for this admission?: Yes Plan: No firing. Stable. (7) Humerus fracture Qualifiers: Encounter type: initial encounter Humerus Location: surgical neck Fracture type: closed Fracture alignment: nondisplaced Laterality: left Is this a current diagnosis for this admission?: Yes Plan: Advise for now is conservative treatment in a sling. Plan Summary: Try to extubate today. Critical Time Critical Time (minutes): 40 Level of Care: ICU Anticipated discharge: SNF Within: Other - When ready -: 1. The care of a critical patient is a dynamic process. This note is a wire rope sales representative synopsis but static in nature. The timeframe for treatments given in order is not necessarily the actual time these treatments may have been done. 2. This patient requires critical care secondary to ongoing requirements for therapy not offered or safe outside the critical care environment. Transfer to a lower level of care will result in altered life or limb morbidity and mortality. 3. Multidisciplinary rounds completed. 4. ABCDE bundle addressed.
[2019-11-30 11:45] LABS: ARTERIAL BLOOD H2CO3 1.29 mmol/L (1.05-1.35); ARTERIAL BLOOD HCO3 23.4 mmol/L (20-24); ARTERIAL BLOOD O2 SATURATION 91.8 % (94-98); ARTERIAL BLOOD PH 7.35 (7.35-7.45); ARTERIAL BLOOD PO2 64.9 mmHg (80-100); ARTERIAL BLOOD TOTAL CO2 24.7 mmol/L (21-25)
[2019-11-30 11:47] LABS: ARTERIAL BLOOD FIO2 30%
[2019-11-30] MEDS: FLUTICASONE/VILANTEROL 200-25 MCG/DOSE IH SCH (13:13)
[2019-11-30] MEDS: HYDROMORPHONE HCL INJ/PF 2 MG/ML AMPULE IV PRN ×2 (14:56→19:52)
[2019-12-01] MEDS: NORMAL SALINE 1000 ML 1,000 ML IV PRN (01:08)
[2019-12-01] MEDS: HYDROMORPHONE HCL INJ/PF 2 MG/ML AMPULE IV PRN ×4 (01:09→19:30)
[2019-12-01] MEDS: IPRATROPIUM/ALBUTEROL 0.5-2.5 MG/3 ML AMPUL NEB SCH ×3 (02:27→13:37)
[2019-12-01 04:07] LABS: ABSOLUTE BASOPHILS # (AUTO) 0.1 10^3/uL (0.0-0.2); ABSOLUTE EOSINOPHILS # (AUTO) 0.2 10^3/uL (0.0-0.6); TOTAL CELLS COUNTED % (AUTO) 100 %
[2019-12-01 04:18] LABS: ABSOLUTE LYMPHOCYTES (AUTO) 0.9 10^3/uL (0.5-4.7); ABSOLUTE MONOCYTES (AUTO) 1.2 10^3/uL (0.1-1.4); ABSOLUTE NEUT (AUTO) 8.5 10^3/uL (1.7-8.2); BASOPHILS % (AUTO) 0.7 % (0-2); EOSINOPHILS % (AUTO) 1.6 % (0-6); HEMATOCRIT 25.7 % (36.0-47.0); HEMOGLOBIN 8.4 g/dL (12.0-15.5); LYMPHOCYTES % (AUTO) 8.5 % (13-45); MEAN CORPUSCULAR HEMOGLOBIN 28.4 pg (27.0-33.4); MEAN CORPUSCULAR HGB CONC 32.6 g/dL (32.0-36.0); MEAN CORPUSCULAR VOLUME 87 fl (80-97); MONOCYTES % (AUTO) 11.1 % (3-13); PLATELET COUNT 239 10^3/uL (150-450); RED BLOOD COUNT 2.96 10^6/uL (3.72-5.28); RED CELL DISTRIBUTION WIDTH 18.8 % (11.5-14.0); SEGMENTED NEUTROPHILS % (AUTO) 78.1 % (42-78); WHITE BLOOD COUNT 10.9 10^3/uL (4.0-10.5)
[2019-12-01 04:22] LABS: ALBUMIN 2.5 g/dL (3.5-5.0); ALKALINE PHOSPHATASE 264 U/L (38-126); ANION GAP 7 (5-19); ASPARTATE AMINO TRANSFERASE 33 U/L (14-36); BILIRUBIN,DIRECT 0.4 mg/dL (0.0-0.4); BILIRUBIN,TOTAL 0.6 mg/dL (0.2-1.3); BLOOD UREA NITROGEN 28 mg/dL (7-20); CALCIUM 9.4 mg/dL (8.4-10.2); CARBON DIOXIDE 24 mmol/L (22-30); CHLORIDE 109 mmol/L (98-107); GLUCOSE 92 mg/dL (75-110); PHOSPHORUS 4.6 mg/dL (2.5-4.5); POTASSIUM 4.5 mmol/L (3.6-5.0); TOTAL PROTEIN 5.5 g/dL (6.3-8.2)
[2019-12-01] MEDS: LEVOTHYROXINE SODIUM INJ/PF 0.1 MG SDV IV SCH (05:08)
[2019-12-01] MEDS: HEPARIN SOD (PORCINE) 5,000 UNIT/ML 1 ML VIAL SUBCUT SCH ×3 (05:08→21:25)
[2019-12-01] MEDS: CYANOCOBALAMIN (VITAMIN B-12) 1,000 MCG TABLET PO SCH (09:08)
[2019-12-01] MEDS: METOPROLOL SUCCINATE 50 MG TAB.SR.24H PO SCH (09:08)
[2019-12-01] MEDS: CHOLECALCIFEROL (D3) 1,000 UNIT (25 MCG) TABLET PO SCH (09:08)
[2019-12-01] MEDS: FOLIC ACID 1 MG TABLET PO SCH (09:08)
[2019-12-01] MEDS: FLUTICASONE/VILANTEROL 200-25 MCG/DOSE IH SCH (10:22)
[2019-12-01] MEDS: ISOSORBIDE MONONITRATE 30 MG TAB.ER.24H PO SCH ×2 (10:38→17:22)
[2019-12-01] MEDS: OXYBUTYNIN CHLORIDE 5 MG TABLET PO SCH ×2 (10:38→17:21)
[2019-12-01] MEDS: FAMOTIDINE 20 MG TABLET PO SCH ×2 (10:38→21:25)
[2019-12-01] MEDS: ASPIRIN 325 MG TABLET PO SCH (10:38)
[2019-12-01] MEDS: RANOLAZINE 500 MG TAB.SR.12H PO SCH ×2 (10:38→21:25)
[2019-12-01] MEDS ORDERED: ASPIRIN 300 MG SUPP, RECTAL PR SCH (11:00)
--- NOTE | 2019-12-01 12:07 | PDOC CRITICAL CARE PROG REPORT ---
General Date:: 12/01/19 ICU Day:: 4 Hospital Day:: 6 Resuscitation Status: Full Code Events in the past 12 to 24 Hours:: Extubated. Failed swallow test. Review of systems relevant to events:: Respiratory, constitutional, orthopedic. Reason for ICU Addmission:: hypercapnic respiratory failure. Intubated at first. - Medications: Medications reviewed and adjusted accordingly: Yes Vasopressors:: None Sedation:: None Physical Exam Vital Signs: Temp Pulse Resp BP Pulse Ox 99.1 F 96 17 130/78 H 100 12/01/19 08:00 12/01/19 10:00 12/01/19 10:00 12/01/19 10:00 12/01/19 10:00 Pulse Oximeter Continuous Start: 11/26/19 14:10 Freq: RTQ4 Status: Complete Protocol: Document 11/28/19 12:25 [facility] (Rec: 11/28/19 12:27 [facility] [id number]) Pulse Oximetry Assessment Oxygen Saturation (92-100) 100 Oxygen Delivery Method Bi-pap Fraction of Inspired Oxygen (FIO2) 35 Equipment Usage Equipment in Use Continuous SpO2 Machine # 3 Intake & Output 11/30/19 12/01/19 12/02/19 06:59 06:59 06:59 Intake Total 3410 1957 887 Output Total 4230 1155 140 Balance -820 802 747 Weight 59.2 kg 58.2 kg Weight/Height Weight 58.2 kg Height 5 ft 2 in General appearance: PRESENT: no acute distress, cooperative, thin, other - Very Head exam: PRESENT: atraumatic, normocephalic Eye exam: PRESENT: conjunctiva pink, EOMI, PERRLA. ABSENT: scleral icterus Ear exam: PRESENT: normal external ear exam Mouth exam: PRESENT: moist, tongue midline Respiratory exam: PRESENT: crackles, decreased breath sounds, rhonchi, tachypnea Cardiovascular exam: PRESENT: tachycardia Vascular exam: PRESENT: normal capillary refill GI/Abdominal exam: PRESENT: normal bowel sounds, soft. ABSENT: distended, guarding, mass, organolmegaly, rebound, tenderness Rectal exam: PRESENT: deferred Gentrourinary exam: PRESENT: indwelling catheter Extremities exam: PRESENT: pedal edema, other - Anasarca better. Musculoskeletal exam: PRESENT: other - L hip dressings claen. L arm in sling. Neurological exam: PRESENT: alert, awake, oriented to person, oriented to place, oriented to time, oriented to situation, CN II-XII grossly intact, other - Occassional confusion.. ABSENT: motor sensory deficit Skin exam: PRESENT: dry, intact, warm. ABSENT: cyanosis, rash Laboratory/Radiographs Laboratory Results: 12/01/19 03:45 12/01/19 03:45 11/30/19 12/01/19 12/01/19 11:28 03:45 03:45 WBC 10.9 H RBC 2.96 L Hgb 8.4 L Hct 25.7 L MCV 87 MCH 28.4 MCHC 32.6 RDW 18.8 H Plt Count 239 Seg Neutrophils % 78.1 H Carbonic Acid 1.29 HCO3/H2CO3 Ratio 18:1 ABG pH 7.35 ABG pCO2 43.0 ABG pO2 64.9 L ABG HCO3 23.4 ABG O2 Saturation 91.8 L ABG Base Excess -2.0 FiO2 30% Sodium 140.2 Potassium 4.5 Chloride 109 H Carbon Dioxide 24 Anion Gap 7 BUN 28 H Creatinine 1.01 Est GFR ( Amer) > 60 Glucose 92 Calcium 9.4 Phosphorus 4.6 H Magnesium 1.8 Total Bilirubin 0.6 AST 33 Alkaline Phosphatase 264 H Total Protein 5.5 L Albumin 2.5 L 11/28/19 16:20 Tracheal Aspirate Gram Stain - Final 11/28/19 16:20 Tracheal Aspirate Sputum Culture - Final Yeast, Not Ophelia Albicans Reduced Normal Cinthia 11/26/19 11/26/19 11/26/19 09:20 15:23 19:04 Creatine Kinase CK-MB (CK-2) Troponin I 0.025 0.194 0.197 NT-Pro-B Natriuret Pep 1770 H 11/27/19 11/28/19 11/28/19 00:20 13:30 13:30 Creatine Kinase 319 H CK-MB (CK-2) 6.30 H Troponin I 0.237 0.556 NT-Pro-B Natriuret Pep 28609 H 11/28/19 11/28/19 11/28/19 13:30 13:30 16:30 Creatine Kinase Cancelled 340 H CK-MB (CK-2) Cancelled Troponin I NT-Pro-B Natriuret Pep 0111/29/19 11/29/19 16:30 00:38 00:38 Creatine Kinase 301 H CK-MB (CK-2) 7.03 H 5.12 H Troponin I 0.563 0.855 NT-Pro-B Natriuret Pep 11/29/19 11/29/19 11/29/19 03:45 09:52 09:52 Creatine Kinase 262 H CK-MB (CK-2) 3.72 Troponin I 0.737 NT-Pro-B Natriuret Pep 63919 H 11/30/19 12/01/19 03:35 03:45 Creatine Kinase CK-MB (CK-2) Troponin I NT-Pro-B Natriuret Pep 12720 H 8860 H Impressions: Humerus X-Ray 11/26/19 00:00 IMPRESSION: Fracture of the surgical neck extending into the anatomic neck. Fluoroscopy 11/27/19 00:00 IMPRESSION: IMAGE(S) OBTAINED DURING PROCEDURE. Hip X-Ray 11/27/19 00:00 IMPRESSION: IMAGE(S) OBTAINED DURING PROCEDURE. Abdomen/Pelvis CT 11/28/19 00:00 IMPRESSION: 1. Body wall edema. 2. Uterine fibroids. 3. Diverticulosis without evidence of diverticulitis. Cervical Spine CT 11/28/19 00:00 IMPRESSION: NO ACUTE OR SIGNIFICANT FINDINGS IN THE CERVICAL SPINE. Chest CT 11/28/19 00:00 IMPRESSION: Cardiomegaly and small pleural effusions. Right lower lobe atelectasis versus developing pneumonia. Chest X-Ray 11/28/19 00:00 IMPRESSION: Good position of support apparatus. No pneumothorax. Head CT 11/28/19 12:44 IMPRESSION: 1. No acute intracranial hemorrhage or depressed calvarial fracture. Chronic changes of atrophy and microvascular ischemia. 2. Chronic pansinusitis, ENT consult recommended. 3. Complete opacification of the bilateral mastoid air cells with fluid at the middle ears, please correlate for otomastoiditis. EVIDENCE OF ACUTE STROKE: NO. All labs, radiographs, diagnostic studies and EKGs were personally reviewed: Yes In addition, reports of radiographic and diagnostic studies were read: Yes Assessment and Plan - Diagnosis (1) Acute and chronic respiratory failure with hypercapnia Is this a current diagnosis for this admission?: Yes Plan: Resolved at this time. (2) Acute metabolic encephalopathy Is this a current diagnosis for this admission?: Yes Plan: Delirium is best treated by getting her out of the ICU and avoiding deliriogenic medication and mobilizing. Pain reliever are going to be needed though. (3) CAD (coronary artery disease) Qualifiers: Coronary Disease-Associated Artery/Lesion type: unspecified vessel or lesion type Associated angina: without angina Is this a current diagnosis for this admission?: Yes Plan: Stable and inactive. (4) COPD (chronic obstructive pulmonary disease) Qualifiers: COPD type: unspecified COPD Qualified Code(s): J44.9 - Chronic obstructive pulmonary disease, unspecified Is this a current diagnosis for this admission?: Yes Plan: This may be contributing to her continued need for bipap and anxiety (5) Closed fracture of left proximal humerus Qualifiers: Encounter type: initial encounter Fracture morphology: unspecified fracture morphology Qualified Code(s): S42.202A - Unspecified fracture of upper end of left humerus, initial encounter for closed fracture Is this a current diagnosis for this admission?: Yes Plan: Conservative therapy with sling. (6) ICD (implantable cardioverter-defibrillator) in place Is this a current diagnosis for this admission?: Yes Plan: Has not fired. (7) Anxiety Is this a current diagnosis for this admission?: Yes Plan: Start seraquel. Avoid ativan for now. Plan Summary: Mobilize as much as possible. Bipap PRN. She will still need an ICU level of care due to her tenuous respiratory status. Critical Time Critical Time (minutes): 40 Level of Care: ICU Anticipated discharge: SNF Within: Other - Too soon to tell. -: 1. The care of a critical patient is a dynamic process. This note is a special service representative synopsis but static in nature. The timeframe for treatments given in order is not necessarily the actual time these treatments may have been done. 2. This patient requires critical care secondary to ongoing requirements for therapy not offered or safe outside the critical care environment. Transfer to a lower level of care will result in altered life or limb morbidity and mortality. 3. Multidisciplinary rounds completed. 4. ABCDE bundle addressed.
[2019-12-01] MEDS ORDERED: METOPROLOL TARTRATE PF/INJ 5 MG/5 ML SDV IV ONE ×2 (13:51→14:30)
[2019-12-01] MEDS ORDERED: FUROSEMIDE INJ/PF 20 MG/2 ML SDV IV ONE (14:30)
[2019-12-01] MEDS ORDERED: HYDROMORPHONE HCL INJ/PF 2 MG/ML AMPULE IV ONE (14:30)
[2019-12-01 14:32] LABS: ANION GAP 11 (5-19); BLOOD UREA NITROGEN 28 mg/dL (7-20); CALCIUM 9.6 mg/dL (8.4-10.2); CARBON DIOXIDE 21 mmol/L (22-30); CHLORIDE 109 mmol/L (98-107); GLUCOSE 95 mg/dL (75-110); POTASSIUM 4.6 mmol/L (3.6-5.0)
[2019-12-01] MEDS: LEVALBUTEROL HCL NEB 0.63 MG/3 ML AMPUL NEB SCH ×2 (15:11→20:55)
--- NOTE | 2019-12-01 15:47 | PDOC PROGRESS REPORT ---
Subjective Progress Note for:: 12/01/19 Subjective:: Patient seen and examined. Has been intubated. He has been maintained on noninvasive positive pressure ventilation. Endorses that she feels better. Reason For Visit: PNEUMONIA Physical Exam Vital Signs: Temp Pulse Resp BP Pulse Ox 99.5 F 91 24 H 134/70 H 99 12/01/19 12:00 12/01/19 14:00 12/01/19 14:00 12/01/19 14:00 12/01/19 14:00 Pulse Oximeter Continuous Start: 11/26/19 14:10 Freq: RTQ4 Status: Complete Protocol: Document 11/28/19 12:25 [facility] (Rec: 11/28/19 12:27 [facility] [id number]) Pulse Oximetry Assessment Oxygen Saturation (92-100) 100 Oxygen Delivery Method Bi-pap Fraction of Inspired Oxygen (FIO2) 35 Equipment Usage Equipment in Use Continuous SpO2 Machine # 3 Intake & Output 11/30/19 12/01/19 12/02/19 06:59 06:59 06:59 Intake Total 3410 1957 887 Output Total 4230 1155 415 Balance -820 802 472 Weight 59.2 kg 58.2 kg General appearance: PRESENT: thin, other - Frail and elderly. Head exam: PRESENT: atraumatic, normocephalic - Noninvasive mask Eye exam: PRESENT: EOMI Mouth exam: PRESENT: moist Respiratory exam: PRESENT: accessory muscle use, decreased breath sounds, symmetrical Cardiovascular exam: PRESENT: RRR, +S1, +S2 Pulses: PRESENT: normal radial pulses GI/Abdominal exam: PRESENT: soft Rectal exam: PRESENT: deferred Neurological exam: PRESENT: alert, awake, oriented to person Skin exam: PRESENT: dry, intact Results Laboratory Results: 12/01/19 03:45 12/01/19 13:45 12/01/19 12/01/19 12/01/19 03:45 03:45 13:45 WBC 10.9 H RBC 2.96 L Hgb 8.4 L Hct 25.7 L MCV 87 MCH 28.4 MCHC 32.6 RDW 18.8 H Plt Count 239 Seg Neutrophils % 78.1 H Sodium 140.2 140.9 Potassium 4.5 4.6 Chloride 109 H 109 H Carbon Dioxide 24 21 L Anion Gap 7 11 BUN 28 H 28 H Creatinine 1.01 0.96 Est GFR ( Amer) > 60 > 60 Glucose 92 95 Calcium 9.4 9.6 Phosphorus 4.6 H Magnesium 1.8 1.9 Total Bilirubin 0.6 AST 33 Alkaline Phosphatase 264 H Total Protein 5.5 L Albumin 2.5 L 11/26/19 13:45 Blood Blood Culture - Final NO GROWTH IN 5 DAYS 11/26/19 10:46 Blood Blood Culture - Final NO GROWTH IN 5 DAYS 11/28/19 16:20 Tracheal Aspirate Gram Stain - Final 11/28/19 16:20 Tracheal Aspirate Sputum Culture - Final Yeast, Not Ophelia Albicans Reduced Normal Cinthia 11/26/19 11/26/19 11/26/19 09:20 15:23 19:04 Creatine Kinase CK-MB (CK-2) Troponin I 0.025 0.194 0.197 NT-Pro-B Natriuret Pep 1770 H 11/27/19 11/28/19 11/28/19 00:20 13:30 13:30 Creatine Kinase 319 H CK-MB (CK-2) 6.30 H Troponin I 0.237 0.556 NT-Pro-B Natriuret Pep 82579 H 11/28/19 11/28/19 11/28/19 13:30 13:30 16:30 Creatine Kinase Cancelled 340 H CK-MB (CK-2) Cancelled Troponin I NT-Pro-B Natriuret Pep 11/28/19 11/29/19 11/29/19 16:30 00:38 00:38 Creatine Kinase 301 H CK-MB (CK-2) 7.03 H 5.12 H Troponin I 0.563 0.855 NT-Pro-B Natriuret Pep 11/29/19 11/29/19 11/29/19 03:45 09:52 09:52 Creatine Kinase 262 H CK-MB (CK-2) 3.72 Troponin I 0.737 NT-Pro-B Natriuret Pep 94334 H 11/30/19 12/01/19 12/01/19 03:35 03:45 14:05 Creatine Kinase CK-MB (CK-2) Troponin I 0.188 NT-Pro-B Natriuret Pep 43648 H 8860 H Impressions: Humerus X-Ray 11/26/19 00:00 IMPRESSION: Fracture of the surgical neck extending into the anatomic neck. Fluoroscopy 11/27/19 00:00 IMPRESSION: IMAGE(S) OBTAINED DURING PROCEDURE. Hip X-Ray 11/27/19 00:00 IMPRESSION: IMAGE(S) OBTAINED DURING PROCEDURE. Abdomen/Pelvis CT 11/28/19 00:00 IMPRESSION: 1. Body wall edema. 2. Uterine fibroids. 3. Diverticulosis without evidence of diverticulitis. Cervical Spine CT 11/28/19 00:00 IMPRESSION: NO ACUTE OR SIGNIFICANT FINDINGS IN THE CERVICAL SPINE. Chest CT 11/28/19 00:00 IMPRESSION: Cardiomegaly and small pleural effusions. Right lower lobe atelectasis versus developing pneumonia. Chest X-Ray 11/28/19 00:00 IMPRESSION: Good position of support apparatus. No pneumothorax. Head CT 11/28/19 12:44 IMPRESSION: 1. No acute intracranial hemorrhage or depressed calvarial fracture. Chronic changes of atrophy and microvascular ischemia. 2. Chronic pansinusitis, ENT consult recommended. 3. Complete opacification of the bilateral mastoid air cells with fluid at the middle ears, please correlate for otomastoiditis. EVIDENCE OF ACUTE STROKE: NO. Assessment & Plan - Diagnosis (1) CAD (coronary artery disease) Qualifiers: Coronary Disease-Associated Artery/Lesion type: unspecified vessel or lesion type Associated angina: without angina Is this a current diagnosis for this admission?: Yes Plan: Continue guideline directed medical therapy as feasible. Presently patient is intubated. Mild elevated troponins probably secondary to elevated filling pressure and congestive heart failure. Unlikely to be acute coronary syndrome. Medical management for coronary disease as feasible. (2) ICD (implantable cardioverter-defibrillator) in place Is this a current diagnosis for this admission?: Yes Plan: Site looked WNL (3) Congestive heart failure (CHF) Is this a current diagnosis for this admission?: Yes Plan: There may have been a component of volume overload. Echocardiogram that was done presently shows depressed left ventricular function as expected. However by echo her filling pressures are not that elevated. Would recommend maintenance diuretic. Also watch volume status.
[2019-12-01] MEDS ORDERED: QUETIAPINE FUMARATE 25 MG TABLET PO SCH (22:00)
--- NOTE | 2019-12-01 22:11 | PDOC PROGRESS REPORT ---
Subjective Progress Note for:: 12/01/19 Subjective:: Patient is doing well. No acute events overnight. She has been weaned off of her ventilator and is more alert. She has no complaints at this time and reports feeling better. No pain in the left hip at this time Reason For Visit: PNEUMONIA Physical Exam Vital Signs: Temp Pulse Resp BP Pulse Ox 99.3 F 96 11 L 118/70 100 12/01/19 20:00 12/01/19 20:55 12/01/19 21:00 12/01/19 20:37 12/01/19 21:00 Pulse Oximeter Continuous Start: 11/26/19 14:10 Freq: RTQ4 Status: Complete Protocol: Document 11/28/19 12:25 [facility] (Rec: 11/28/19 12:27 [facility] [id number]) Pulse Oximetry Assessment Oxygen Saturation (92-100) 100 Oxygen Delivery Method Bi-pap Fraction of Inspired Oxygen (FIO2) 35 Equipment Usage Equipment in Use Continuous SpO2 Machine # 3 Intake & Output 11/30/19 12/01/19 12/02/19 06:59 06:59 06:59 Intake Total 3410 1957 887 Output Total 4230 1155 680 Balance -820 802 207 Weight 59.2 kg 58.2 kg 58.2 kg Physical Exam: The patient is awake and alert. She is oriented to person. Otherwise slightly confused. Left lower extremity lower extremity -Pulses 2+ distally -Compartments soft -Wound clean dry and intact [] drainage, appropriate appearance for postop day [] -Sensation grossly intact to L3-4-5 S1 -Motor grossly intact to EHL TA gastroc and quad Results Laboratory Results: 12/01/19 03:45 12/01/19 13:45 12/01/19 12/01/19 12/01/19 03:45 03:45 13:45 WBC 10.9 H RBC 2.96 L Hgb 8.4 L Hct 25.7 L MCV 87 MCH 28.4 MCHC 32.6 RDW 18.8 H Plt Count 239 Seg Neutrophils % 78.1 H Sodium 140.2 140.9 Potassium 4.5 4.6 Chloride 109 H 109 H Carbon Dioxide 24 21 L Anion Gap 7 11 BUN 28 H 28 H Creatinine 1.01 0.96 Est GFR ( Amer) > 60 > 60 Glucose 92 95 Calcium 9.4 9.6 Phosphorus 4.6 H Magnesium 1.8 1.9 Total Bilirubin 0.6 AST 33 Alkaline Phosphatase 264 H Total Protein 5.5 L Albumin 2.5 L 11/26/19 13:45 Blood Blood Culture - Final NO GROWTH IN 5 DAYS 11/26/19 10:46 Blood Blood Culture - Final NO GROWTH IN 5 DAYS 11/26/19 11/26/19 11/26/19 09:20 15:23 19:04 Creatine Kinase CK-MB (CK-2) Troponin I 0.025 0.194 0.197 NT-Pro-B Natriuret Pep 1770 H 11/27/19 11/28/19 11/28/19 00:20 13:30 13:30 Creatine Kinase 319 H CK-MB (CK-2) 6.30 H Troponin I 0.237 0.556 NT-Pro-B Natriuret Pep 09020 H 11/28/19 11/28/19 11/28/19 13:30 13:30 16:30 Creatine Kinase Cancelled 340 H CK-MB (CK-2) Cancelled Troponin I NT-Pro-B Natriuret Pep 11/28/19 11/29/19 11/29/19 16:30 00:38 00:38 Creatine Kinase 301 H CK-MB (CK-2) 7.03 H 5.12 H Troponin I 0.563 0.855 NT-Pro-B Natriuret Pep 11/29/19 11/29/19 11/29/19 03:45 09:52 09:52 Creatine Kinase 262 H CK-MB (CK-2) 3.72 Troponin I 0.737 NT-Pro-B Natriuret Pep 65220 H 11/30/19 12/01/19 12/01/19 03:35 03:45 14:05 Creatine Kinase CK-MB (CK-2) Troponin I 0.188 NT-Pro-B Natriuret Pep 15245 H 8860 H 12/01/19 21:00 Creatine Kinase CK-MB (CK-2) Troponin I 0.238 NT-Pro-B Natriuret Pep Impressions: Humerus X-Ray 11/26/19 00:00 IMPRESSION: Fracture of the surgical neck extending into the anatomic neck. Fluoroscopy 11/27/19 00:00 IMPRESSION: IMAGE(S) OBTAINED DURING PROCEDURE. Hip X-Ray 11/27/19 00:00 IMPRESSION: IMAGE(S) OBTAINED DURING PROCEDURE. Abdomen/Pelvis CT 11/28/19 00:00 IMPRESSION: 1. Body wall edema. 2. Uterine fibroids. 3. Diverticulosis without evidence of diverticulitis. Cervical Spine CT 11/28/19 00:00 IMPRESSION: NO ACUTE OR SIGNIFICANT FINDINGS IN THE CERVICAL SPINE. Chest CT 11/28/19 00:00 IMPRESSION: Cardiomegaly and small pleural effusions. Right lower lobe atelectasis versus developing pneumonia. Chest X-Ray 11/28/19 00:00 IMPRESSION: Good position of support apparatus. No pneumothorax. Head CT 11/28/19 12:44 IMPRESSION: 1. No acute intracranial hemorrhage or depressed calvarial fracture. Chronic changes of atrophy and microvascular ischemia. 2. Chronic pansinusitis, ENT consult recommended. 3. Complete opacification of the bilateral mastoid air cells with fluid at the middle ears, please correlate for otomastoiditis. EVIDENCE OF ACUTE STROKE: NO. Assessment & Plan - Diagnosis (1) Closed intertrochanteric fracture of left hip Qualifiers: Encounter type: initial encounter Fracture alignment: nondisplaced Qualified Code(s): S72.145A - Nondisplaced intertrochanteric fracture of left femur, initial encounter for closed fracture Is this a current diagnosis for this admission?: Yes Plan: -Weightbearing as tolerated, no precautions, encourage out of bed YULIET for ADL training - PT/OT -DVT prophylaxis per primary service -multimodal pain management to avoid excessive narcotics, including gabapentin, tramadol, Toradol, acetaminophen. -Dressing change as needed -May shower with the dressing intact, if it starts to come off she should not get the incision wet. -I would like to follow the patient my office within the next 7 to [address] [place] [address] in [place] office #: [phone] (2) Closed fracture of left proximal humerus Qualifiers: Encounter type: initial encounter Fracture morphology: unspecified fracture morphology Qualified Code(s): S42.202A - Unspecified fracture of upper end of left humerus, initial encounter for closed fracture Is this a current diagnosis for this admission?: Yes Plan: Continue management with a sling - Time Time Spent with patient: Less than 15 minutes
[2019-12-02] MEDS: HYDROMORPHONE HCL INJ/PF 2 MG/ML AMPULE IV PRN ×2 (01:11→04:59)
[2019-12-02] MEDS: LEVALBUTEROL HCL NEB 0.63 MG/3 ML AMPUL NEB SCH ×4 (02:43→19:58)
[2019-12-02] MEDS ORDERED: ACETAMINOPHEN 650 MG SUPP.RECT PR ONE ×3 (04:23→04:53)
[2019-12-02] MEDS ORDERED: METHOCARBAMOL INJ/PF 1000 MG/10 ML SDV IV SCH (04:30)
[2019-12-02] MEDS ORDERED: METHOCARBAMOL INJ/PF 1000 MG/10 ML SDV ONE (04:56)
[2019-12-02] MEDS: LEVOTHYROXINE SODIUM INJ/PF 0.1 MG SDV IV SCH (05:02)
[2019-12-02] MEDS: HEPARIN SOD (PORCINE) 5,000 UNIT/ML 1 ML VIAL SUBCUT SCH ×3 (05:02→21:32)
[2019-12-02] MEDS: CYANOCOBALAMIN (VITAMIN B-12) 1,000 MCG TABLET PO SCH ×2 (08:13→10:14)
[2019-12-02] MEDS: FOLIC ACID 1 MG TABLET PO SCH ×2 (08:13→10:13)
[2019-12-02] MEDS: METOPROLOL SUCCINATE 50 MG TAB.SR.24H PO SCH ×2 (08:13→10:14)
[2019-12-02] MEDS: CHOLECALCIFEROL (D3) 1,000 UNIT (25 MCG) TABLET PO SCH ×2 (08:13→10:13)
[2019-12-02] MEDS: OXYBUTYNIN CHLORIDE 5 MG TABLET PO SCH ×2 (10:13→17:26)
[2019-12-02] MEDS: FAMOTIDINE 20 MG TABLET PO SCH ×2 (10:14→21:32)
[2019-12-02] MEDS: FLUTICASONE/VILANTEROL 200-25 MCG/DOSE IH SCH (10:14)
[2019-12-02] MEDS: TRAMADOL HCL 50 MG TABLET PO PRN (10:36)
[2019-12-02] MEDS: RANOLAZINE 500 MG TAB.SR.12H PO SCH ×2 (10:37→21:32)
--- NOTE | 2019-12-02 10:55 | PDOC CRITICAL CARE PROG REPORT ---
General Date:: 12/02/19 ICU Day:: 7 Hospital Day:: 7 Resuscitation Status: Full Code Events in the past 12 to 24 Hours:: ICD fired for VT. Review of systems relevant to events:: CV, neuro, orthopedic, respiratory Reason for ICU Addmission:: hypercapnic respiratory failure. Intubated at first. - Medications: Medications reviewed and adjusted accordingly: Yes Vasopressors:: None Sedation:: None Physical Exam Vital Signs: Temp Pulse Resp BP Pulse Ox 98.8 F 104 H 19 120/75 98 12/02/19 08:00 12/02/19 10:00 12/02/19 10:00 12/02/19 10:00 12/02/19 10:00 Pulse Oximeter Continuous Start: 11/26/19 14:10 Freq: RTQ4 Status: Complete Protocol: Document 11/28/19 12:25 [facility] (Rec: 11/28/19 12:27 [facility] [id number]) Pulse Oximetry Assessment Oxygen Saturation (92-100) 100 Oxygen Delivery Method Bi-pap Fraction of Inspired Oxygen (FIO2) 35 Equipment Usage Equipment in Use Continuous SpO2 Machine # 3 Intake & Output 12/01/19 12/02/19 12/03/19 06:59 06:59 06:59 Intake Total 1957 887 0 Output Total 1155 1345 115 Balance 802 -458 -115 Weight 58.2 kg 59 kg Weight/Height Weight 59 kg Height 5 ft 2 in General appearance: PRESENT: no acute distress, cooperative Head exam: PRESENT: atraumatic, normocephalic Eye exam: PRESENT: conjunctiva pink, EOMI, PERRLA. ABSENT: scleral icterus Ear exam: PRESENT: normal external ear exam Mouth exam: PRESENT: moist, tongue midline Respiratory exam: PRESENT: clear to auscultation elsa, decreased breath sounds Cardiovascular exam: PRESENT: RRR. ABSENT: diastolic murmur, rubs, systolic murmur Pulses: PRESENT: normal dorsalis pedis pul GI/Abdominal exam: PRESENT: normal bowel sounds, soft. ABSENT: distended, guard ing, mass, organolmegaly, rebound, tenderness Rectal exam: PRESENT: deferred Gentrourinary exam: PRESENT: indwelling catheter Extremities exam: PRESENT: pedal edema Neurological exam: PRESENT: alert, altered, awake, oriented to person Psychiatric exam: PRESENT: anxious Skin exam: PRESENT: dry, intact, warm, other - Said to have St ! decubitus on sa navi.. ABSENT: cyanosis, rash Laboratory/Radiographs Laboratory Results: 12/01/19 03:45 12/01/19 13:45 12/01/19 13:45 Sodium 140.9 Potassium 4.6 Chloride 109 H Carbon Dioxide 21 L Anion Gap 11 BUN 28 H Creatinine 0.96 Est GFR ( Amer) > 60 Glucose 95 Calcium 9.6 Magnesium 1.9 11/26/19 13:45 Blood Blood Culture - Final NO GROWTH IN 5 DAYS 11/26/19 10:46 Blood Blood Culture - Final NO GROWTH IN 5 DAYS 11/26/19 11/26/19 11/26/19 09:20 15:23 19:04 Creatine Kinase CK-MB (CK-2) Troponin I 0.025 0.194 0.197 NT-Pro-B Natriuret Pep 1770 H 11/27/19 11/28/19 11/28/19 00:20 13:30 13:30 Creatine Kinase 319 H CK-MB (CK-2) 6.30 H Troponin I 0.237 0.556 NT-Pro-B Natriuret Pep 13449 H 11/28/19 11/28/19 11/28/19 13:30 13:30 16:30 Creatine Kinase Cancelled 340 H CK-MB (CK-2) Cancelled Troponin I NT-Pro-B Natriuret Pep 11/28/19 11/29/19 11/29/19 16:30 00:38 00:38 Creatine Kinase 301 H CK-MB (CK-2) 7.03 H 5.12 H Troponin I 0.563 0.855 NT-Pro-B Natriuret Pep 11/29/19 11/29/19 11/29/19 03:45 09:52 09:52 Creatine Kinase 262 H CK-MB (CK-2) 3.72 Troponin I 0.737 NT-Pro-B Natriuret Pep 75958 H 11/30/19 12/01/19 12/01/19 03:35 03:45 14:05 Creatine Kinase CK-MB (CK-2) Troponin I 0.188 NT-Pro-B Natriuret Pep 31132 H 8860 H 12/01/19 12/02/19 21:00 09:00 Creatine Kinase CK-MB (CK-2) Troponin I 0.238 0.240 NT-Pro-B Natriuret Pep Impressions: Humerus X-Ray 11/26/19 00:00 IMPRESSION: Fracture of the surgical neck extending into the anatomic neck. Fluoroscopy 11/27/19 00:00 IMPRESSION: IMAGE(S) OBTAINED DURING PROCEDURE. Hip X-Ray 11/27/19 00:00 IMPRESSION: IMAGE(S) OBTAINED DURING PROCEDURE. Abdomen/Pelvis CT 11/28/19 00:00 IMPRESSION: 1. Body wall edema. 2. Uterine fibroids. 3. Diverticulosis without evidence of diverticulitis. Cervical Spine CT 11/28/19 00:00 IMPRESSION: NO ACUTE OR SIGNIFICANT FINDINGS IN THE CERVICAL SPINE. Chest CT 11/28/19 00:00 IMPRESSION: Cardiomegaly and small pleural effusions. Right lower lobe atelectasis versus developing pneumonia. Chest X-Ray 11/28/19 00:00 IMPRESSION: Good position of support apparatus. No pneumothorax. Head CT 11/28/19 12:44 IMPRESSION: 1. No acute intracranial hemorrhage or depressed calvarial fracture. Chronic changes of atrophy and microvascular ischemia. 2. Chronic pansinusitis, ENT consult recommended. 3. Complete opacification of the bilateral mastoid air cells with fluid at the middle ears, please correlate for otomastoiditis. EVIDENCE OF ACUTE STROKE: NO. All labs, radiographs, diagnostic studies and EKGs were personally reviewed: Yes In addition, reports of radiographic and diagnostic studies were read: Yes Assessment and Plan - Diagnosis (1) Acute and chronic respiratory failure with hypercapnia Is this a current diagnosis for this admission?: Yes Plan: Improved. Off bipap. Will try to keep off as long as possible and use only at n ight. Getting up and increasing mobility should help this. (2) Acute metabolic encephalopathy Is this a current diagnosis for this admission?: Yes (3) CAD (coronary artery disease) Qualifiers: Coronary Disease-Associated Artery/Lesion type: unspecified vessel or lesion type Associated angina: without angina Is this a current diagnosis for this admission?: Yes Plan: Stable. Troponin elevation likely due to AICD firing. No chest pain, change in EKG or BP. (4) COPD (chronic obstructive pulmonary disease) Qualifiers: COPD type: unspecified COPD Qualified Code(s): J44.9 - Chronic obstructive pulmonary disease, unspecified Is this a current diagnosis for this admission?: Yes Plan: Seems to be getting better slowly. If she can stay off PRN bipap and is no longer an intubation risk we will consider downgrade in AM. (5) Closed fracture of left proximal humerus Qualifiers: Encounter type: initial encounter Fracture morphology: unspecified fracture morphology Qualified Code(s): S42.202A - Unspecified fracture of upper end of left humerus, initial encounter for closed fracture Is this a current diagnosis for this admission?: Yes Plan: Seen by Dr. Mcintosh yesterday. Continue with sling and conservative treatment. Edema better but still present. (6) ICD (implantable cardioverter-defibrillator) in place Is this a current diagnosis for this admission?: Yes Plan: This fired yesterday one time with VT, monomorphic on rythym strip. No electrolyte abnormalities. Potassium, magnesium and calcium normal to high normal. This was likely multifactorial with as irritable myocardium secondary to physical stress, low EF, and she was getting albuterol at the time. Now changed to Xopenex to lessen the risk. Lopressor 5mg given IV. No chest pain (briefly after shock) EKG unchanged. VS unchanged. (7) Anxiety Is this a current diagnosis for this admission?: Yes Plan: Back on lexapro. (8) Nutrition deficiency due to insufficient food Is this a current diagnosis for this admission?: Yes Plan: She has been approved for a mechanical soft diet and PO meds have been reordered (9) Hypoalbuminemia due to protein-calorie malnutrition Is this a current diagnosis for this admission?: Yes Plan: Level is 2.5. This has implications for protein binding of drugs and overall prognosis. Ideally a feeding tube may help but need for bipap makes this not ideal for her respiratory status (10) DM II (diabetes mellitus, type II), controlled Qualifiers: Diabetes mellitus terminal clerk insulin use: without terminal clerk use Diabetes me llitus complication status: with circulatory complication Is this a current diagnosis for this admission?: Yes Plan: She is now on a regular diet to increase caloric intake. Insulin will be given if needed. Plan Summary: Bipap only at night, mobilize. Maybe downgrade in AM. Critical Time Critical Time (minutes): 40 Level of Care: ICU Anticipated discharge: SNF Within: Other - Several more days. -: 1. The care of a critical patient is a dynamic process. This note is a parts representative synopsis but static in nature. The timeframe for treatments given in order is not necessarily the actual time these treatments may have been done. 2. This patient requires critical care secondary to ongoing requirements for therapy not offered or safe outside the critical care environment. Transfer to a lower level of care will result in altered life or limb morbidity and mortality. 3. Multidisciplinary rounds completed. 4. ABCDE bundle addressed.
[2019-12-02] MEDS ORDERED: DEXTROSE 50%-WATER SYRINGE 25 GM/50 ML DOSE IV PRN ×2 (11:30)
[2019-12-02] MEDS ORDERED: DEXTROSE 40% GEL 15 GM TUBE X 2 PO PRN ×2 (11:30)
[2019-12-02] MEDS ORDERED: GLUCAGON,HUMAN RECOMB 1 MG INJ IM PRN ×2 (11:30)
[2019-12-02] MEDS ORDERED: DEXTROSE 50%-WATER SYRINGE 12.5 GM/25 ML DOSE IV PRN ×2 (11:30)
[2019-12-02] MEDS ORDERED: DEXTROSE 40% GEL 15 GM TUBE PO PRN ×2 (11:30)
[2019-12-02] MEDS: INSULIN REG, HUMAN 100 UNIT/ML 3 ML VIAL (PYX) SUBCUT SCH ×2 (12:16→17:24)
[2019-12-02] MEDS: ISOSORBIDE MONONITRATE 30 MG TAB.ER.24H PO SCH ×2 (15:15→17:27)
[2019-12-02] MEDS: OXYCODONE HCL IR 5 MG TABLET PO PRN (17:26)
--- NOTE | 2019-12-02 17:45 | PDOC PROGRESS REPORT ---
Subjective Progress Note for:: 12/02/19 Subjective:: Yesterday evening patient was receiving nebulization therapy with beta agonist inhaled. It appears that she has had ventricular ectopy which triggered a run of ventricular tachycardia which was appropriately detected and treated by her ICD. She continues to be in mild congestive heart failure and respiratory distress and is receiving noninvasive positive pressure ventilation. There is significant peripheral edema and anasarca. She is also quite hypoalbuminemic. Reason For Visit: PNEUMONIA Physical Exam Vital Signs: Temp Pulse Resp BP Pulse Ox 98.1 F 99 21 H 128/69 H 99 12/02/19 16:00 12/02/19 16:00 12/02/19 16:00 12/02/19 16:00 12/02/19 16:00 Pulse Oximeter Continuous Start: 11/26/19 14:10 Freq: RTQ4 Status: Complete Protocol: Document 11/28/19 12:25 [facility] (Rec: 11/28/19 12:27 [facility] [id number]) Pulse Oximetry Assessment Oxygen Saturation (92-100) 100 Oxygen Delivery Method Bi-pap Fraction of Inspired Oxygen (FIO2) 35 Equipment Usage Equipment in Use Continuous SpO2 Machine # 3 Intake & Output 12/01/19 12/02/19 12/03/19 06:59 06:59 06:59 Intake Total 9646 880 060 Output Total 7085 7799 34521 Balance 782 -870 -1111 Weight 58.2 kg 59 kg General appearance: PRESENT: cooperative, mild distress Head exam: PRESENT: atraumatic, normocephalic Eye exam: PRESENT: EOMI Neck exam: PRESENT: JVD Respiratory exam: PRESENT: crackles, decreased breath sounds, rales, symmetrical Cardiovascular exam: PRESENT: RRR, +S1, +S2 Pulses: PRESENT: normal radial pulses GI/Abdominal exam: PRESENT: ascites, soft Rectal exam: PRESENT: deferred Neurological exam: PRESENT: alert, awake Skin exam: PRESENT: dry, intact Results Laboratory Results: 12/01/19 03:45 12/01/19 13:45 11/26/19 13:45 Blood Blood Culture - Final NO GROWTH IN 5 DAYS 11/26/19 11/26/19 11/26/19 09:20 15:23 19:04 Creatine Kinase CK-MB (CK-2) Troponin I 0.025 0.194 0.197 NT-Pro-B Natriuret Pep 1770 H 11/27/19 11/28/19 11/28/19 00:20 13:30 13:30 Creatine Kinase 319 H CK-MB (CK-2) 6.30 H Troponin I 0.237 0.556 NT-Pro-B Natriuret Pep 28849 H 11/28/19 11/28/19 11/28/19 13:30 13:30 16:30 Creatine Kinase Cancelled 340 H CK-MB (CK-2) Cancelled Troponin I NT-Pro-B Natriuret Pep 11/28/19 11/29/19 11/29/19 16:30 00:38 00:38 Creatine Kinase 301 H CK-MB (CK-2) 7.03 H 5.12 H Troponin I 0.563 0.855 NT-Pro-B Natriuret Pep 11/29/19 11/29/19 11/29/19 03:45 09:52 09:52 Creatine Kinase 262 H CK-MB (CK-2) 3.72 Troponin I 0.737 NT-Pro-B Natriuret Pep 30748 H 11/30/19 12/01/19 12/01/19 03:35 03:45 14:05 Creatine Kinase CK-MB (CK-2) Troponin I 0.188 NT-Pro-B Natriuret Pep 76405 H 8860 H 12/01/19 12/02/19 21:00 09:00 Creatine Kinase CK-MB (CK-2) Troponin I 0.238 0.240 NT-Pro-B Natriuret Pep EKG Comments: Review of telemetry from yesterday shows sinus rhythm followed by what appears to be a PVC that triggered a run of VT that was appropriately treated and shocked by her device. Impressions: Humerus X-Ray 11/26/19 00:00 IMPRESSION: Fracture of the surgical neck extending into the anatomic neck. Fluoroscopy 11/27/19 00:00 IMPRESSION: IMAGE(S) OBTAINED DURING PROCEDURE. Hip X-Ray 11/27/19 00:00 IMPRESSION: IMAGE(S) OBTAINED DURING PROCEDURE. Abdomen/Pelvis CT 11/28/19 00:00 IMPRESSION: 1. Body wall edema. 2. Uterine fibroids. 3. Diverticulosis without evidence of diverticulitis. Cervical Spine CT 11/28/19 00:00 IMPRESSION: NO ACUTE OR SIGNIFICANT FINDINGS IN THE CERVICAL SPINE. Chest CT 11/28/19 00:00 IMPRESSION: Cardiomegaly and small pleural effusions. Right lower lobe atelectasis versus developing pneumonia. Chest X-Ray 11/28/19 00:00 IMPRESSION: Good position of support apparatus. No pneumothorax. Head CT 11/28/19 12:44 IMPRESSION: 1. No acute intracranial hemorrhage or depressed calvarial fracture. Chronic changes of atrophy and microvascular ischemia. 2. Chronic pansinusitis, ENT consult recommended. 3. Complete opacification of the bilateral mastoid air cells with fluid at the middle ears, please correlate for otomastoiditis. EVIDENCE OF ACUTE STROKE: NO. Assessment & Plan - Diagnosis (1) CAD (coronary artery disease) Qualifiers: Coronary Disease-Associated Artery/Lesion type: unspecified vessel or lesion type Associated angina: without angina Is this a current diagnosis for this admission?: Yes Plan: Continue guideline directed medical therapy as feasible. Presently patient is intubated. Mild elevated troponins probably secondary to elevated filling pressure and congestive heart failure. Unlikely to be acute coronary syndrome. Medical management for coronary disease as feasible. (2) ICD (implantable cardioverter-defibrillator) in place Is this a current diagnosis for this admission?: Yes Plan: Site looked [facility] ] Telemetry shows sinus rhythmRun of ventricular tachycardia was appropriately detected and treated by her ICD This appears to have been triggered by beta agonist stimulation. (3) Congestive heart failure (CHF) Is this a current diagnosis for this admission?: Yes Plan: There may have been a component of volume overload. Echocardiogram that was done presently shows depressed left ventricular function as expected. However by echo her filling pressures are not that elevated. Would recommend maintenance diuretic. Also watch volume status. She is also quite hypoalbuminemic. Continue diuretic intravenously.
[2019-12-02] MEDS: ESCITALOPRAM OXALATE 10 MG TABLET PO SCH (21:33)
[2019-12-03] MEDS: INSULIN REG, HUMAN 100 UNIT/ML 3 ML VIAL (PYX) SUBCUT SCH ×5 (00:12→23:33)
[2019-12-03] MEDS: LEVALBUTEROL HCL NEB 0.63 MG/3 ML AMPUL NEB SCH ×4 (02:52→20:33)
[2019-12-03] MEDS: LEVOTHYROXINE SODIUM 0.05 MG TABLET PO SCH (05:05)
[2019-12-03] MEDS: HEPARIN SOD (PORCINE) 5,000 UNIT/ML 1 ML VIAL SUBCUT SCH ×3 (05:05→21:41)
[2019-12-03] MEDS: TRAMADOL HCL 50 MG TABLET PO PRN ×2 (05:05→20:06)
[2019-12-03 05:17] LABS: ABSOLUTE BASOPHILS # (AUTO) 0.1 10^3/uL (0.0-0.2); ABSOLUTE LYMPHOCYTES (AUTO) 1.2 10^3/uL (0.5-4.7); ABSOLUTE NEUT (AUTO) 6.6 10^3/uL (1.7-8.2); BASOPHILS % (AUTO) 1.2 % (0-2); EOSINOPHILS % (AUTO) 0.4 % (0-6); HEMATOCRIT 24.9 % (36.0-47.0); LYMPHOCYTES % (AUTO) 13.1 % (13-45); MEAN CORPUSCULAR HEMOGLOBIN 28.1 pg (27.0-33.4); MEAN CORPUSCULAR VOLUME 88 fl (80-97); MONOCYTES % (AUTO) 10.9 % (3-13); PLATELET COUNT 319 10^3/uL (150-450); RED BLOOD COUNT 2.83 10^6/uL (3.72-5.28); RED CELL DISTRIBUTION WIDTH 19.7 % (11.5-14.0); SEGMENTED NEUTROPHILS % (AUTO) 74.4 % (42-78); TOTAL CELLS COUNTED % (AUTO) 100 %; WHITE BLOOD COUNT 8.8 10^3/uL (4.0-10.5)
[2019-12-03 05:36] LABS: ANION GAP 6 (5-19); BLOOD UREA NITROGEN 34 mg/dL (7-20); CALCIUM 9.9 mg/dL (8.4-10.2); CARBON DIOXIDE 24 mmol/L (22-30); CHLORIDE 111 mmol/L (98-107); GLUCOSE 112 mg/dL (75-110); POTASSIUM 4.5 mmol/L (3.6-5.0)
[2019-12-03] MEDS: METOPROLOL SUCCINATE 50 MG TAB.SR.24H PO SCH (09:05)
[2019-12-03] MEDS: OXYBUTYNIN CHLORIDE 5 MG TABLET PO SCH ×2 (09:05→17:36)
[2019-12-03] MEDS: FLUTICASONE/VILANTEROL 200-25 MCG/DOSE IH SCH (09:05)
[2019-12-03] MEDS: ASPIRIN 325 MG TABLET PO SCH (09:05)
[2019-12-03] MEDS: CYANOCOBALAMIN (VITAMIN B-12) 1,000 MCG TABLET PO SCH (09:06)
[2019-12-03] MEDS: FAMOTIDINE 20 MG TABLET PO SCH ×2 (09:06→21:38)
[2019-12-03] MEDS: CHOLECALCIFEROL (D3) 1,000 UNIT (25 MCG) TABLET PO SCH (09:06)
[2019-12-03] MEDS: FOLIC ACID 1 MG TABLET PO SCH (09:06)
[2019-12-03] MEDS: RANOLAZINE 500 MG TAB.SR.12H PO SCH ×2 (09:06→21:38)
[2019-12-03] MEDS: ISOSORBIDE MONONITRATE 30 MG TAB.ER.24H PO SCH ×2 (09:06→17:26)
[2019-12-03] MEDS ORDERED: POLYETHYLENE GLYCOL 3350 POWDER 17 GM/1 PACKET PO PRN (09:41)
[2019-12-03] MEDS ORDERED: NORMAL SALINE 1000 ML 1,000 ML IV PRN (13:36)
[2019-12-03 14:30] LABS: VENOUS BLOOD BASE EXCESS -4.7 mmol/L; VENOUS BLOOD HCO3 24.4 mmol/L (20-32)
[2019-12-03 14:34] LABS: VENOUS BLOOD PH 7.15 (7.30-7.42)
[2019-12-03 14:35] LABS: VENOUS BLOOD PCO2 71.4 mmHg (35-63)
[2019-12-03] MEDS: ESCITALOPRAM OXALATE 10 MG TABLET PO SCH (21:38)
[2019-12-03] MEDS: GUAIFENESIN 600 MG TABLET.SA PO SCH (21:38)
[2019-12-04] MEDS: 1/2 NORMAL SALINE 1,000 ML IV PRN ×2 (00:36→21:34)
[2019-12-04] MEDS: OXYCODONE HCL IR 5 MG TABLET PO PRN (02:12)
[2019-12-04] MEDS: LEVALBUTEROL HCL NEB 0.63 MG/3 ML AMPUL NEB SCH ×4 (02:27→21:15)
[2019-12-04] MEDS: LEVOTHYROXINE SODIUM 0.05 MG TABLET PO SCH (05:44)
[2019-12-04] MEDS: HEPARIN SOD (PORCINE) 5,000 UNIT/ML 1 ML VIAL SUBCUT SCH ×3 (05:47→21:36)
[2019-12-04] MEDS: INSULIN REG, HUMAN 100 UNIT/ML 3 ML VIAL (PYX) SUBCUT SCH ×4 (05:56→23:07)
[2019-12-04 06:01] LABS: ARTERIAL BLOOD BASE EXCESS -3.4 mmol/L; ARTERIAL BLOOD H2CO3 2.27 mmol/L (1.05-1.35); ARTERIAL BLOOD O2 SATURATION 85.9 % (94-98); ARTERIAL BLOOD PO2 65.7 mmHg (80-100); ARTERIAL BLOOD TOTAL CO2 28.3 mmol/L (21-25)
[2019-12-04 06:04] LABS: ARTERIAL BLOOD FIO2 30%; ARTERIAL BLOOD PCO2 75.3 mmHg (35-45); ARTERIAL BLOOD PH 7.16 (7.35-7.45)
[2019-12-04 08:48] LABS: ANION GAP 5 (5-19); BLOOD UREA NITROGEN 32 mg/dL (7-20); CALCIUM 9.7 mg/dL (8.4-10.2); CARBON DIOXIDE 26 mmol/L (22-30); CHLORIDE 108 mmol/L (98-107); GLUCOSE 112 mg/dL (75-110); POTASSIUM 4.5 mmol/L (3.6-5.0)
[2019-12-04] MEDS: RANOLAZINE 500 MG TAB.SR.12H PO SCH ×2 (09:07→21:38)
[2019-12-04] MEDS: OXYBUTYNIN CHLORIDE 5 MG TABLET PO SCH ×2 (09:07→17:58)
[2019-12-04] MEDS: ISOSORBIDE MONONITRATE 30 MG TAB.ER.24H PO SCH ×2 (09:07→17:58)
[2019-12-04] MEDS: ASPIRIN 325 MG TABLET PO SCH (09:08)
[2019-12-04] MEDS: CHOLECALCIFEROL (D3) 1,000 UNIT (25 MCG) TABLET PO SCH (09:08)
[2019-12-04] MEDS: FLUTICASONE/VILANTEROL 200-25 MCG/DOSE IH SCH (09:08)
[2019-12-04] MEDS: CYANOCOBALAMIN (VITAMIN B-12) 1,000 MCG TABLET PO SCH (09:08)
[2019-12-04] MEDS: FAMOTIDINE 20 MG TABLET PO SCH ×2 (09:08→21:36)
[2019-12-04] MEDS: FOLIC ACID 1 MG TABLET PO SCH (09:08)
[2019-12-04] MEDS: GUAIFENESIN 600 MG TABLET.SA PO SCH ×2 (09:08→21:36)
[2019-12-04] MEDS: METOPROLOL SUCCINATE 50 MG TAB.SR.24H PO SCH (09:09)
--- NOTE | 2019-12-04 16:19 | PDOC CRITICAL CARE PROG REPORT ---
General Date:: 12/04/19 Resuscitation Status: Full Code Events in the past 12 to 24 Hours:: A bit less talkative. Still not eating much Review of systems relevant to events:: Respiratory, CV, orthopedic Reason for ICU Addmission:: At risk for reintubation. - Medications: Medications reviewed and adjusted accordingly: Yes Vasopressors:: None Sedation:: None Physical Exam Vital Signs: Temp Pulse Resp BP Pulse Ox 99.3 F 87 18 109/64 98 12/04/19 14:00 12/04/19 14:10 12/04/19 14:10 12/04/19 14:00 12/04/19 14:10 Pulse Oximeter Continuous Start: 11/26/19 14:10 Freq: RTQ4 Status: Complete Protocol: Document 11/28/19 12:25 [facility] (Rec: 11/28/19 12:27 [facility] [id number]) Pulse Oximetry Assessment Oxygen Saturation (92-100) 100 Oxygen Delivery Method Bi-pap Fraction of Inspired Oxygen (FIO2) 35 Equipment Usage Equipment in Use Continuous SpO2 Machine # 3 Intake & Output 12/03/19 12/04/19 12/05/19 06:59 06:59 06:59 Intake Total 640 920 50 Output Total 33575 660 155 Balance -81364 260 -105 Weight 60.9 kg 61.6 kg Weight/Height Weight 61.6 kg Height 5 ft 2 in General appearance: PRESENT: no acute distress, cooperative Head exam: PRESENT: atraumatic, normocephalic Eye exam: PRESENT: conjunctiva pink, EOMI, PERRLA. ABSENT: scleral icterus Ear exam: PRESENT: normal external ear exam Mouth exam: PRESENT: dry mucosa Respiratory exam: PRESENT: accessory muscle use, crackles, decreased breath sounds, rhonchi, tachypnea Cardiovascular exam: PRESENT: RRR GI/Abdominal exam: PRESENT: normal bowel sounds, soft. ABSENT: distended, guarding, mass, organolmegaly, rebound, tenderness Rectal exam: PRESENT: deferred Gentrourinary exam: PRESENT: indwelling catheter Extremities exam: PRESENT: pedal edema, other - Edema on L side still present but improved. On R trace Neurological exam: PRESENT: alert, altered, awake, oriented to person, oriented to place Skin exam: PRESENT: other - Stage I sacral decubitus improved. Laboratory/Radiographs Laboratory Results: 12/03/19 04:57 12/04/19 07:55 12/04/19 12/04/19 12/04/19 05:35 07:55 10:45 Carbonic Acid 2.27 H HCO3/H2CO3 Ratio 11:1 ABG pH 7.16 L* ABG pCO2 75.3 H* ABG pO2 65.7 L ABG HCO3 26.0 H ABG O2 Saturation 85.9 L ABG Base Excess -3.4 FiO2 30% Sodium 138.7 Potassium 4.5 Chloride 108 H Carbon Dioxide 26 Anion Gap 5 BUN 32 H Creatinine 0.92 Est GFR ( Amer) > 60 Glucose 112 H Lactic Acid < 0.5 L Calcium 9.7 11/26/19 11/26/19 11/26/19 09:20 15:23 19:04 Creatine Kinase CK-MB (CK-2) Troponin I 0.025 0.194 0.197 NT-Pro-B Natriuret Pep 1770 H 11/27/19 11/28/19 11/28/19 00:20 13:30 13:30 Creatine Kinase 319 H CK-MB (CK-2) 6.30 H Troponin I 0.237 0.556 NT-Pro-B Natriuret Pep 05690 H 11/28/19 11/28/19 11/28/19 13:30 13:30 16:30 Creatine Kinase Cancelled 340 H CK-MB (CK-2) Cancelled Troponin I NT-Pro-B Natriuret Pep 11/28/19 11/29/19 11/29/19 16:30 00:38 00:38 Creatine Kinase 301 H CK-MB (CK-2) 7.03 H 5.12 H Troponin I 0.563 0.855 NT-Pro-B Natriuret Pep 11/29/19 11/29/19 11/29/19 03:45 09:52 09:52 Creatine Kinase 262 H CK-MB (CK-2) 3.72 Troponin I 0.737 NT-Pro-B Natriuret Pep 77146 H 11/30/19 12/01/19 12/01/19 03:35 03:45 14:05 Creatine Kinase CK-MB (CK-2) Troponin I 0.188 NT-Pro-B Natriuret Pep 79783 H 8860 H 12/01/19 12/02/19 21:00 09:00 Creatine Kinase CK-MB (CK-2) Troponin I 0.238 0.240 NT-Pro-B Natriuret Pep Impressions: Humerus X-Ray 11/26/19 00:00 IMPRESSION: Fracture of the surgical neck extending into the anatomic neck. Fluoroscopy 11/27/19 00:00 IMPRESSION: IMAGE(S) OBTAINED DURING PROCEDURE. Hip X-Ray 11/27/19 00:00 IMPRESSION: IMAGE(S) OBTAINED DURING PROCEDURE. Abdomen/Pelvis CT 11/28/19 00:00 IMPRESSION: 1. Body wall edema. 2. Uterine fibroids. 3. Diverticulosis without evidence of diverticulitis. Cervical Spine CT 11/28/19 00:00 IMPRESSION: NO ACUTE OR SIGNIFICANT FINDINGS IN THE CERVICAL SPINE. Chest CT 11/28/19 00:00 IMPRESSION: Cardiomegaly and small pleural effusions. Right lower lobe atelectasis versus developing pneumonia. Chest X-Ray 11/28/19 00:00 IMPRESSION: Good position of support apparatus. No pneumothorax. Head CT 11/28/19 12:44 IMPRESSION: 1. No acute intracranial hemorrhage or depressed calvarial fracture. Chronic changes of atrophy and microvascular ischemia. 2. Chronic pansinusitis, ENT consult recommended. 3. Complete opacification of the bilateral mastoid air cells with fluid at the middle ears, please correlate for otomastoiditis. EVIDENCE OF ACUTE STROKE: NO. All labs, radiographs, diagnostic studies and EKGs were personally reviewed: Yes In addition, reports of radiographic and diagnostic studies were read: Yes Assessment and Plan - Diagnosis (1) Acute and chronic respiratory failure with hypercapnia Is this a current diagnosis for this admission?: Yes Plan: Continue bipap off and on. Patient and daughter agree to a palliative care consult and may opt for hospice. Until then she is a full code and will be reintubated if needed. (2) Acute metabolic encephalopathy Is this a current diagnosis for this admission?: Yes Plan: Improved today. (3) CAD (coronary artery disease) Qualifiers: Coronary Disease-Associated Artery/Lesion type: unspecified vessel or lesion type Associated angina: without angina Is this a current diagnosis for this admission?: Yes Plan: Stable with hx CHF also stable. (4) COPD (chronic obstructive pulmonary disease) Qualifiers: COPD type: unspecified COPD Qualified Code(s): J44.9 - Chronic obstructive pulmonary disease, unspecified Is this a current diagnosis for this admission?: Yes Plan: No wheezing. This is probably impacting on her intermittent need for bipap. (5) Closed fracture of left proximal humerus Qualifiers: Encounter type: initial encounter Fracture morphology: unspecified fracture morphology Qualified Code(s): S42.202A - Unspecified fracture of upper end of left humerus, initial encounter for closed fracture Is this a current diagnosis for this admission?: Yes Plan: Continue sling. (6) ICD (implantable cardioverter-defibrillator) in place Is this a current diagnosis for this admission?: Yes Plan: No further firing. Keep on xopenex for now. (7) Anxiety Is this a current diagnosis for this admission?: Yes Plan: Stable (8) Nutrition deficiency due to insufficient food Is this a current diagnosis for this admission?: Yes Plan: She is not meeting caloric needs and would rather not have a feeding tube. (9) Hypoalbuminemia due to protein-calorie malnutrition Is this a current diagnosis for this admission?: Yes Plan: No change. (10) DM II (diabetes mellitus, type II), controlled Qualifiers: Diabetes mellitus residential insulin use: without predatory animal exterminator use Diabetes mellitus complication status: with circulatory complication Is this a current diagnosis for this admission?: Yes Plan: Controlled but not eating much. Plan Summary: Hopefully the patient and family will choose hospice. Her condition is composed of mostly chronic conditions that cannot be reversed. The acute orthopedic problems have been addressed. Critical Time Critical Time (minutes): 35 Level of Care: ICU Anticipated discharge: Hospice Within: within 72 hours -: 1. The care of a critical patient is a dynamic process. This note is a promotions representative synopsis but static in nature. The timeframe for treatments given in order is not necessarily the actual time these treatments may have been done. 2. This patient requires critical care secondary to ongoing requirements for therapy not offered or safe outside the critical care environment. Transfer to a lower level of care will result in altered life or limb morbidity and mortality. 3. Multidisciplinary rounds completed. 4. ABCDE bundle addressed.
[2019-12-04] MEDS ORDERED: TETRAHYDROZOLINE HCL 0.05% OPH SOLN 15 ML OU PRN (19:57)
[2019-12-04] MEDS: ESCITALOPRAM OXALATE 10 MG TABLET PO SCH (21:38)
[2019-12-04] MEDS: HYDROMORPHONE HCL INJ/PF 2 MG/ML AMPULE IV PRN (23:04)
[2019-12-05] MEDS: LEVALBUTEROL HCL NEB 0.63 MG/3 ML AMPUL NEB SCH ×4 (02:14→19:36)
[2019-12-05 04:39] LABS: ABSOLUTE EOSINOPHILS # (AUTO) 0.4 10^3/uL (0.0-0.6); ABSOLUTE LYMPHOCYTES (AUTO) 1.4 10^3/uL (0.5-4.7); ABSOLUTE NEUT (AUTO) 3.9 10^3/uL (1.7-8.2); BASOPHILS % (AUTO) 0.5 % (0-2); EOSINOPHILS % (AUTO) 5.9 % (0-6); HEMATOCRIT 23.9 % (36.0-47.0); MEAN CORPUSCULAR HEMOGLOBIN 28.1 pg (27.0-33.4); MEAN CORPUSCULAR HGB CONC 32.1 g/dL (32.0-36.0); MEAN CORPUSCULAR VOLUME 88 fl (80-97); MONOCYTES % (AUTO) 14.5 % (3-13); PLATELET COUNT 323 10^3/uL (150-450); RED BLOOD COUNT 2.73 10^6/uL (3.72-5.28); RED CELL DISTRIBUTION WIDTH 19.8 % (11.5-14.0); SEGMENTED NEUTROPHILS % (AUTO) 58.1 % (42-78); TOTAL CELLS COUNTED % (AUTO) 100 %; WHITE BLOOD COUNT 6.7 10^3/uL (4.0-10.5)
[2019-12-05 04:41] LABS: HEMOGLOBIN 7.7 g/dL (12.0-15.5)
[2019-12-05] MEDS: LEVOTHYROXINE SODIUM 0.05 MG TABLET PO SCH (05:49)
[2019-12-05] MEDS: INSULIN REG, HUMAN 100 UNIT/ML 3 ML VIAL (PYX) SUBCUT SCH ×3 (05:54→20:03)
[2019-12-05] MEDS: HEPARIN SOD (PORCINE) 5,000 UNIT/ML 1 ML VIAL SUBCUT SCH ×3 (05:54→22:32)
[2019-12-05] MEDS: HYDROMORPHONE HCL INJ/PF 2 MG/ML AMPULE IV PRN ×3 (08:14→20:03)
[2019-12-05] MEDS: GUAIFENESIN 600 MG TABLET.SA PO SCH ×2 (11:24→22:31)
[2019-12-05] MEDS: ASPIRIN 325 MG TABLET PO SCH (11:24)
[2019-12-05] MEDS: OXYBUTYNIN CHLORIDE 5 MG TABLET PO SCH ×2 (11:24→20:02)
[2019-12-05] MEDS: FOLIC ACID 1 MG TABLET PO SCH (11:25)
[2019-12-05] MEDS: METOPROLOL SUCCINATE 50 MG TAB.SR.24H PO SCH (11:25)
[2019-12-05] MEDS: CYANOCOBALAMIN (VITAMIN B-12) 1,000 MCG TABLET PO SCH (11:25)
[2019-12-05] MEDS: CHOLECALCIFEROL (D3) 1,000 UNIT (25 MCG) TABLET PO SCH (11:25)
[2019-12-05] MEDS: ISOSORBIDE MONONITRATE 30 MG TAB.ER.24H PO SCH ×2 (11:26→20:02)
[2019-12-05] MEDS: FAMOTIDINE 20 MG TABLET PO SCH ×2 (11:26→22:31)
[2019-12-05] MEDS: FLUTICASONE/VILANTEROL 200-25 MCG/DOSE IH SCH (11:26)
[2019-12-05] MEDS: RANOLAZINE 500 MG TAB.SR.12H PO SCH ×2 (11:27→22:33)
[2019-12-05] MEDS: 1/2 NORMAL SALINE 1,000 ML IV PRN (11:29)
[2019-12-05 13:09] LABS: ARTERIAL BLOOD BASE EXCESS -3.4 mmol/L; ARTERIAL BLOOD FIO2 30%; ARTERIAL BLOOD H2CO3 1.99 mmol/L (1.05-1.35); ARTERIAL BLOOD HCO3 25.2 mmol/L (20-24); ARTERIAL BLOOD O2 SATURATION 94.5 % (94-98); ARTERIAL BLOOD PO2 89.1 mmHg (80-100); ARTERIAL BLOOD TOTAL CO2 27.2 mmol/L (21-25)
--- NOTE | 2019-12-05 13:16 | PDOC CRITICAL CARE PROG REPORT ---
General Date:: 12/05/19 Hospital Day:: 8 Resuscitation Status: Full Code Events in the past 12 to 24 Hours:: Essentially no change in neuro or respiratory status. Living will brought in by daughter. Family and patient agree to DNR status. Review of systems relevant to events:: Respiratory and neuro Reason for ICU Addmission:: At risk for reintubation. Now DNR/DNI - Medications: Medications reviewed and adjusted accordingly: Yes Vasopressors:: None Sedation:: None Physical Exam Vital Signs: Temp Pulse Resp BP Pulse Ox 98.6 F 92 9 L 126/73 H 100 12/05/19 12:00 12/05/19 12:00 12/05/19 12:00 12/05/19 12:00 12/05/19 12:00 Pulse Oximeter Continuous Start: 11/26/19 14:10 Freq: RTQ4 Status: Complete Protocol: Document 11/28/19 12:25 [facility] (Rec: 11/28/19 12:27 [facility] [id number]) Pulse Oximetry Assessment Oxygen Saturation (92-100) 100 Oxygen Delivery Method Bi-pap Fraction of Inspired Oxygen (FIO2) 35 Equipment Usage Equipment in Use Continuous SpO2 Machine # 3 Intake & Output 12/04/19 12/05/19 12/06/19 06:59 06:59 06:59 Intake Total 920 1050 1000 Output Total 660 745 160 Balance 260 305 840 Weight 61.6 kg 64.5 kg Weight/Height Weight 64.5 kg Height 5 ft 2 in General appearance: PRESENT: no acute distress, cooperative Head exam: PRESENT: atraumatic, normocephalic Ear exam: PRESENT: normal external ear exam Mouth exam: PRESENT: moist, tongue midline Respiratory exam: PRESENT: accessory muscle use, clear to auscultation elsa, decreased breath sounds Cardiovascular exam: PRESENT: RRR. ABSENT: diastolic murmur, rubs, systolic murmur GI/Abdominal exam: PRESENT: normal bowel sounds, soft. ABSENT: distended, gu arding, mass, organolmegaly, rebound, tenderness Rectal exam: PRESENT: deferred Gentrourinary exam: PRESENT: indwelling catheter Extremities exam: PRESENT: pedal edema Neurological exam: PRESENT: alert, altered, awake, oriented to person Skin exam: PRESENT: dry, pallor Laboratory/Radiographs Laboratory Results: 12/05/19 04:15 12/04/19 07:55 12/05/19 04:15 WBC 6.7 RBC 2.73 L Hgb 7.7 L Hct 23.9 L MCV 88 MCH 28.1 MCHC 32.1 RDW 19.8 H Plt Count 323 Seg Neutrophils % 58.1 11/26/19 11/26/19 11/26/19 09:20 15:23 19:04 Creatine Kinase CK-MB (CK-2) Troponin I 0.025 0.194 0.197 NT-Pro-B Natriuret Pep 1770 H 11/27/19 11/28/19 11/28/19 00:20 13:30 13:30 Creatine Kinase 319 H CK-MB (CK-2) 6.30 H Troponin I 0.237 0.556 NT-Pro-B Natriuret Pep 07574 H 11/28/19 11/28/19 11/28/19 13:30 13:30 16:30 Creatine Kinase Cancelled 340 H CK-MB (CK-2) Cancelled Troponin I NT-Pro-B Natriuret Pep 11/28/19 11/29/19 11/29/19 16:30 00:38 00:38 Creatine Kinase 301 H CK-MB (CK-2) 7.03 H 5.12 H Troponin I 0.563 0.855 NT-Pro-B Natriuret Pep 11/29/19 11/29/19 11/29/19 03:45 09:52 09:52 Creatine Kinase 262 H CK-MB (CK-2) 3.72 Troponin I 0.737 NT-Pro-B Natriuret Pep 97243 H 11/30/19 12/01/19 12/01/19 03:35 03:45 14:05 Creatine Kinase CK-MB (CK-2) Troponin I 0.188 NT-Pro-B Natriuret Pep 78299 H 8860 H 12/01/19 12/02/19 21:00 09:00 Creatine Kinase CK-MB (CK-2) Troponin I 0.238 0.240 NT-Pro-B Natriuret Pep Impressions: Humerus X-Ray 11/26/19 00:00 IMPRESSION: Fracture of the surgical neck extending into the anatomic neck. Fluoroscopy 11/27/19 00:00 IMPRESSION: IMAGE(S) OBTAINED DURING PROCEDURE. Hip X-Ray 11/27/19 00:00 IMPRESSION: IMAGE(S) OBTAINED DURING PROCEDURE. Abdomen/Pelvis CT 11/28/19 00:00 IMPRESSION: 1. Body wall edema. 2. Uterine fibroids. 3. Diverticulosis without evidence of diverticulitis. Cervical Spine CT 11/28/19 00:00 IMPRESSION: NO ACUTE OR SIGNIFICANT FINDINGS IN THE CERVICAL SPINE. Chest CT 11/28/19 00:00 IMPRESSION: Cardiomegaly and small pleural effusions. Right lower lobe atelectasis versus developing pneumonia. Chest X-Ray 11/28/19 00:00 IMPRESSION: Good position of support apparatus. No pneumothorax. Head CT 11/28/19 12:44 IMPRESSION: 1. No acute intracranial hemorrhage or depressed calvarial fracture. Chronic changes of atrophy and microvascular ischemia. 2. Chronic pansinusitis, ENT consult recommended. 3. Complete opacification of the bilateral mastoid air cells with fluid at the middle ears, please correlate for otomastoiditis. EVIDENCE OF ACUTE STROKE: NO. All labs, radiographs, diagnostic studies and EKGs were personally reviewed: Yes In addition, reports of radiographic and diagnostic studies were read: Yes Assessment and Plan - Diagnosis (1) Acute and chronic respiratory failure with hypercapnia Is this a current diagnosis for this admission?: Yes Plan: Resolved (2) Acute metabolic encephalopathy Is this a current diagnosis for this admission?: Yes Plan: This seems to be delirium from a variety of causes. Pain, immobility, narcotics (now D/Cd) acute illness and a fluctuating nature. This may be a terminal state. (3) CAD (coronary artery disease) Qualifiers: Coronary Disease-Associated Artery/Lesion type: unspecified vessel or lesion type Associated angina: without angina Is this a current diagnosis for this admission?: Yes Plan: Stable. (4) COPD (chronic obstructive pulmonary disease) Qualifiers: COPD type: unspecified COPD Qualified Code(s): J44.9 - Chronic obstructive pulmonary disease, unspecified Is this a current diagnosis for this admission?: Yes Plan: No wheezing (5) Closed fracture of left proximal humerus Qualifiers: Encounter type: initial encounter Fracture morphology: unspecified fracture morphology Qualified Code(s): S42.202A - Unspecified fracture of upper end of left humerus, initial encounter for closed fracture Is this a current diagnosis for this admission?: Yes Plan: Conservative treatment. No complaints of pain today. (6) ICD (implantable cardioverter-defibrillator) in place Is this a current diagnosis for this admission?: Yes Plan: No further firing (7) Anxiety Is this a current diagnosis for this admission?: Yes Plan: Resolved for now. (8) Nutrition deficiency due to insufficient food Is this a current diagnosis for this admission?: Yes Plan: Not taking PO well. Does not want feeding tube. (9) Hypoalbuminemia due to protein-calorie malnutrition Is this a current diagnosis for this admission?: Yes Plan: This is a risk factor for mortality give the low level and her seemingly not wanting to eat. I do not believe she will survive this admission. Her about 1-2 weeks ago and this is contributing to her relative apathy. (10) DM II (diabetes mellitus, type II), controlled Qualifiers: Diabetes mellitus [facility] insulin use: without [facility] use Diabetes mellitus complication status: with circulatory complication Is this a current diagnosis for this admission?: Yes Plan: Controlled Plan Summary: She is now DNR/DNI which I support. We need hospice to weigh in as this would be appropriate if the patient and family agree. Critical Time Critical Time (minutes): 35 Level of Care: ICU Anticipated discharge: Hospice Within: within 72 hours -: 1. The care of a critical patient is a dynamic process. This note is a customer engagement representative synopsis but static in nature. The timeframe for treatments given in order is not necessarily the actual time these treatments may have been done. 2. This patient requires critical care secondary to ongoing requirements for therapy not offered or safe outside the critical care environment. Transfer to a lower level of care will result in altered life or limb morbidity and mortality. 3. Multidisciplinary rounds completed. 4. ABCDE bundle addressed.
[2019-12-05] MEDS: ESCITALOPRAM OXALATE 10 MG TABLET PO SCH (22:31)
[2019-12-06] MEDS: 1/2 NORMAL SALINE 1,000 ML IV PRN ×2 (00:30→14:12)
[2019-12-06] MEDS: LEVALBUTEROL HCL NEB 0.63 MG/3 ML AMPUL NEB SCH ×4 (01:46→19:48)
[2019-12-06] MEDS: HYDROMORPHONE HCL INJ/PF 2 MG/ML AMPULE IV PRN ×3 (02:34→23:46)
[2019-12-06 04:09] LABS: ABSOLUTE BASOPHILS # (AUTO) 0.1 10^3/uL (0.0-0.2); ABSOLUTE EOSINOPHILS # (AUTO) 0.4 10^3/uL (0.0-0.6); ABSOLUTE LYMPHOCYTES (AUTO) 1.1 10^3/uL (0.5-4.7); ABSOLUTE MONOCYTES (AUTO) 0.9 10^3/uL (0.1-1.4); ABSOLUTE NEUT (AUTO) 4.5 10^3/uL (1.7-8.2); BASOPHILS % (AUTO) 0.8 % (0-2); EOSINOPHILS % (AUTO) 5.7 % (0-6); HEMATOCRIT 24.6 % (36.0-47.0); LYMPHOCYTES % (AUTO) 15.5 % (13-45); MEAN CORPUSCULAR HEMOGLOBIN 28.1 pg (27.0-33.4); MEAN CORPUSCULAR HGB CONC 31.6 g/dL (32.0-36.0); MEAN CORPUSCULAR VOLUME 89 fl (80-97); MONOCYTES % (AUTO) 13.3 % (3-13); PLATELET COUNT 349 10^3/uL (150-450); RED BLOOD COUNT 2.76 10^6/uL (3.72-5.28); RED CELL DISTRIBUTION WIDTH 20.4 % (11.5-14.0); SEGMENTED NEUTROPHILS % (AUTO) 64.7 % (42-78); TOTAL CELLS COUNTED % (AUTO) 100 %; WHITE BLOOD COUNT 6.9 10^3/uL (4.0-10.5)
[2019-12-06 04:11] LABS: HEMOGLOBIN 7.8 g/dL (12.0-15.5)
[2019-12-06] MEDS: HEPARIN SOD (PORCINE) 5,000 UNIT/ML 1 ML VIAL SUBCUT SCH ×3 (05:41→22:33)
[2019-12-06] MEDS: LEVOTHYROXINE SODIUM 0.05 MG TABLET PO SCH (05:41)
[2019-12-06] MEDS: INSULIN REG, HUMAN 100 UNIT/ML 3 ML VIAL (PYX) SUBCUT SCH ×4 (07:23→17:42)
[2019-12-06] MEDS: ASPIRIN 325 MG TABLET PO SCH (10:22)
[2019-12-06] MEDS: CHOLECALCIFEROL (D3) 1,000 UNIT (25 MCG) TABLET PO SCH (10:22)
[2019-12-06] MEDS: FAMOTIDINE 20 MG TABLET PO SCH ×2 (10:22→22:33)
[2019-12-06] MEDS: METOPROLOL SUCCINATE 50 MG TAB.SR.24H PO SCH (10:22)
[2019-12-06] MEDS: OXYBUTYNIN CHLORIDE 5 MG TABLET PO SCH ×2 (10:22→17:42)
[2019-12-06] MEDS: FLUTICASONE/VILANTEROL 200-25 MCG/DOSE IH SCH (10:23)
[2019-12-06] MEDS: FOLIC ACID 1 MG TABLET PO SCH (10:23)
[2019-12-06] MEDS: TRAMADOL HCL 50 MG TABLET PO PRN (10:23)
[2019-12-06] MEDS: CYANOCOBALAMIN (VITAMIN B-12) 1,000 MCG TABLET PO SCH (10:23)
[2019-12-06] MEDS: ISOSORBIDE MONONITRATE 30 MG TAB.ER.24H PO SCH ×2 (10:23→17:42)
[2019-12-06] MEDS: GUAIFENESIN 600 MG TABLET.SA PO SCH ×2 (10:23→22:33)
[2019-12-06] MEDS: RANOLAZINE 500 MG TAB.SR.12H PO SCH ×2 (10:24→22:53)
--- NOTE | 2019-12-06 12:27 | PDOC CRITICAL CARE PROG REPORT ---
General Date:: 12/06/19 Resuscitation Status: Full Code Events in the past 12 to 24 Hours:: Seems brighter, breathing easier. Review of systems relevant to events:: Respiratory, neurologic, CV Reason for ICU Addmission:: At risk for reintubation. Now DNR/DNI - Medications: Medications reviewed and adjusted accordingly: Yes Vasopressors:: None Sedation:: None Physical Exam Vital Signs: Temp Pulse Resp BP Pulse Ox 98.1 F 78 25 H 124/67 99 12/06/19 06:00 12/06/19 08:00 12/06/19 10:11 12/06/19 10:11 12/06/19 10:10 Pulse Oximeter Continuous Start: 11/26/19 14:10 Freq: RTQ4 Status: Complete Protocol: Document 11/28/19 12:25 [facility] (Rec: 11/28/19 12:27 [facility] [id number]) Pulse Oximetry Assessment Oxygen Saturation (92-100) 100 Oxygen Delivery Method Bi-pap Fraction of Inspired Oxygen (FIO2) 35 Equipment Usage Equipment in Use Continuous SpO2 Machine # 3 Intake & Output 12/05/19 12/06/19 12/07/19 06:59 06:59 06:59 Intake Total 1050 2000 Output Total 745 685 160 Balance 305 1315 -160 Weight 64.5 kg 65.6 kg Weight/Height Weight 65.6 kg Height 5 ft 2 in General appearance: PRESENT: no acute distress, cooperative Head exam: PRESENT: atraumatic, normocephalic Eye exam: PRESENT: conjunctiva pink, EOMI, PERRLA. ABSENT: scleral icterus Ear exam: PRESENT: normal external ear exam Mouth exam: PRESENT: dry mucosa, tongue midline Respiratory exam: PRESENT: clear to auscultation elsa, crackles, decreased breath sounds Cardiovascular exam: PRESENT: tachycardia - Mildly. GI/Abdominal exam: PRESENT: normal bowel sounds, soft. ABSENT: distended, guarding, mass, organolmegaly, rebound, tenderness Rectal exam: PRESENT: deferred Gentrourinary exam: PRESENT: indwelling catheter Extremities exam: PRESENT: pedal edema, +2 edema Neurological exam: PRESENT: alert, altered, awake, oriented to person, oriented to place Skin exam: PRESENT: other - Stage 1 decubitus improved Laboratory/Radiographs Laboratory Results: 12/06/19 03:50 12/04/19 07:55 12/05/19 12/06/19 13:00 03:50 WBC 6.9 RBC 2.76 L Hgb 7.8 L Hct 24.6 L MCV 89 MCH 28.1 MCHC 31.6 L RDW 20.4 H Plt Count 349 Seg Neutrophils % 64.7 Carbonic Acid 1.99 H HCO3/H2CO3 Ratio 12:1 ABG pH 7.20 L* ABG pCO2 66.0 H ABG pO2 89.1 ABG HCO3 25.2 H ABG O2 Saturation 94.5 ABG Base Excess -3.4 FiO2 30% 11/26/19 11/26/19 11/26/19 09:20 15:23 19:04 Creatine Kinase CK-MB (CK-2) Troponin I 0.025 0.194 0.197 NT-Pro-B Natriuret Pep 1770 H 11/27/19 11/28/19 11/28/19 00:20 13:30 13:30 Creatine Kinase 319 H CK-MB (CK-2) 6.30 H Troponin I 0.237 0.556 NT-Pro-B Natriuret Pep 29514 H 11/28/19 11/28/19 11/28/19 13:30 13:30 16:30 Creatine Kinase Cancelled 340 H CK-MB (CK-2) Cancelled Troponin I NT-Pro-B Natriuret Pep 11/28/19 11/29/19 11/29/19 16:30 00:38 00:38 Creatine Kinase 301 H CK-MB (CK-2) 7.03 H 5.12 H Troponin I 0.563 0.855 NT-Pro-B Natriuret Pep 11/29/19 11/29/19 11/29/19 03:45 09:52 09:52 Creatine Kinase 262 H CK-MB (CK-2) 3.72 Troponin I 0.737 NT-Pro-B Natriuret Pep 26700 H 11/30/19 12/01/19 12/01/19 03:35 03:45 14:05 Creatine Kinase CK-MB (CK-2) Troponin I 0.188 NT-Pro-B Natriuret Pep 97303 H 8860 H 12/01/19 12/02/19 21:00 09:00 Creatine Kinase CK-MB (CK-2) Troponin I 0.238 0.240 NT-Pro-B Natriuret Pep Impressions: Humerus X-Ray 11/26/19 00:00 IMPRESSION: Fracture of the surgical neck extending into the anatomic neck. Fluoroscopy 11/27/19 00:00 IMPRESSION: IMAGE(S) OBTAINED DURING PROCEDURE. Hip X-Ray 11/27/19 00:00 IMPRESSION: IMAGE(S) OBTAINED DURING PROCEDURE. Abdomen/Pelvis CT 11/28/19 00:00 IMPRESSION: 1. Body wall edema. 2. Uterine fibroids. 3. Diverticulosis without evidence of diverticulitis. Cervical Spine CT 11/28/19 00:00 IMPRESSION: NO ACUTE OR SIGNIFICANT FINDINGS IN THE CERVICAL SPINE. Chest CT 11/28/19 00:00 IMPRESSION: Cardiomegaly and small pleural effusions. Right lower lobe a telectasis versus developing pneumonia. Chest X-Ray 11/28/19 00:00 IMPRESSION: Good position of support apparatus. No pneumothorax. Head CT 11/28/19 12:44 IMPRESSION: 1. No acute intracranial hemorrhage or depressed calvarial fracture. Chronic changes of atrophy and microvascular ischemia. 2. Chronic pansinusitis, ENT consult recommended. 3. Complete opacification of the bilateral mastoid air cells with fluid at the middle ears, please correlate for otomastoiditis. EVIDENCE OF ACUTE STROKE: NO. All labs, radiographs, diagnostic studies and EKGs were personally reviewed: Yes In addition, reports of radiographic and diagnostic studies were read: Yes Assessment and Plan - Diagnosis (1) Acute and chronic respiratory failure with hypercapnia Is this a current diagnosis for this admission?: Yes Plan: She has more of an insufficiency and an of and on need for bipap. She needs it more at night but sometimes during the day as well. (2) Acute metabolic encephalopathy Is this a current diagnosis for this admission?: Yes Plan: Delirium mostly resolved (3) CAD (coronary artery disease) Qualifiers: Coronary Disease-Associated Artery/Lesion type: unspecified vessel or lesion type Associated angina: without angina Is this a current diagnosis for this admission?: Yes Plan: Stable (4) COPD (chronic obstructive pulmonary disease) Qualifiers: COPD type: unspecified COPD Qualified Code(s): J44.9 - Chronic obstructive pulmonary disease, unspecified Is this a current diagnosis for this admission?: Yes Plan: Stable (5) Closed fracture of left proximal humerus Qualifiers: Encounter type: initial encounter Fracture morphology: unspecified fracture morphology Qualified Code(s): S42.202A - Unspecified fracture of upper end of left humerus, initial encounter for closed fracture Is this a current diagnosis for this admission?: Yes Plan: Conservative treatment (6) ICD (implantable cardioverter-defibrillator) in place Is this a current diagnosis for this admission?: Yes Plan: No firing (7) Anxiety Is this a current diagnosis for this admission?: Yes Plan: Improved (8) Nutrition deficiency due to insufficient food Is this a current diagnosis for this admission?: Yes Plan: Still not eating well. (9) Hypoalbuminemia due to protein-calorie malnutrition Is this a current diagnosis for this admission?: Yes Plan: Impacting her survivability fdc. (10) DM II (diabetes mellitus, type II), controlled Qualifiers: Diabetes mellitus fdc insulin use: without long term care pharmacist use Diabetes mellitus complication status: with circulatory complication Is this a current diagnosis for this admission?: Yes Plan: Controlled. Plan Summary: Palliative care to speak with patient and family Saturday Critical Time Critical Time (minutes): 35 Level of Care: ICU Anticipated discharge: Hospice Within: within 72 hours -: 1. The care of a critical patient is a dynamic process. This note is a surgical sales representative synopsis but static in nature. The timeframe for treatments given in order is not necessarily the actual time these treatments may have been done. 2. This patient requires critical care secondary to ongoing requirements for therapy not offered or safe outside the critical care environment. Transfer to a lower level of care will result in altered life or limb morbidity and mortality. 3. Multidisciplinary rounds completed. 4. ABCDE bundle addressed.
[2019-12-06] MEDS ORDERED: FUROSEMIDE INJ/PF 20 MG/2 ML SDV IV ONE (13:55)
[2019-12-06] MEDS ORDERED: FUROSEMIDE INJ/PF 20 MG/2 ML SDV ONE (14:05)
[2019-12-06] MEDS: ESCITALOPRAM OXALATE 10 MG TABLET PO SCH (22:33)
--- NOTE | 2019-12-07 00:28 | RADIOLOGY REPORT (SQ) ---
EXAM DESCRIPTION: XR CHEST 1 VIEW COMPLETED DATE/TME: 12/06/2019 23:52 CLINICAL HISTORY: 74 years, Female, diminished on left, hypoxia; r/o infiltrate COMPARISON: 11/28/2019 chest NUMBER OF VIEWS: 1 TECHNIQUE: Portable chest LIMITATIONS: None. FINDINGS: Interval extubation. Removal of the enteric tube. Cardiomegaly. Sternotomy wires with pacing device. [id number] catheter in place. Mild diffuse interstitial edema. Small bibasilar effusions. No pneumothorax. IMPRESSION: Interval extubation and removal of the enteric tube. Mild interstitial edema. Small bibasilar effusions copyright 2010 [employer]- All Rights Reserved
[2019-12-07] MEDS: LEVALBUTEROL HCL NEB 0.63 MG/3 ML AMPUL NEB SCH ×4 (01:30→19:38)
[2019-12-07] MEDS: HYDROMORPHONE HCL INJ/PF 2 MG/ML AMPULE IV PRN (05:55)
[2019-12-07] MEDS: HEPARIN SOD (PORCINE) 5,000 UNIT/ML 1 ML VIAL SUBCUT SCH ×3 (06:09→21:49)
[2019-12-07] MEDS: LEVOTHYROXINE SODIUM 0.05 MG TABLET PO SCH (06:10)
[2019-12-07 06:26] LABS: ABSOLUTE EOSINOPHILS # (AUTO) 0.1 10^3/uL (0.0-0.6); ABSOLUTE LYMPHOCYTES (AUTO) 0.8 10^3/uL (0.5-4.7); ABSOLUTE MONOCYTES (AUTO) 0.7 10^3/uL (0.1-1.4); ABSOLUTE NEUT (AUTO) 5.2 10^3/uL (1.7-8.2); BASOPHILS % (AUTO) 0.5 % (0-2); EOSINOPHILS % (AUTO) 1.4 % (0-6); HEMATOCRIT 25.5 % (36.0-47.0); HEMOGLOBIN 8.3 g/dL (12.0-15.5); LYMPHOCYTES % (AUTO) 11.6 % (13-45); MEAN CORPUSCULAR HEMOGLOBIN 28.6 pg (27.0-33.4); MEAN CORPUSCULAR HGB CONC 32.5 g/dL (32.0-36.0); MEAN CORPUSCULAR VOLUME 88 fl (80-97); MONOCYTES % (AUTO) 9.7 % (3-13); PLATELET COUNT 365 10^3/uL (150-450); RED CELL DISTRIBUTION WIDTH 20.2 % (11.5-14.0); SEGMENTED NEUTROPHILS % (AUTO) 76.8 % (42-78); TOTAL CELLS COUNTED % (AUTO) 100 %; WHITE BLOOD COUNT 6.8 10^3/uL (4.0-10.5)
[2019-12-07] MEDS: INSULIN REG, HUMAN 100 UNIT/ML 3 ML VIAL (PYX) SUBCUT SCH ×4 (06:34→18:12)
[2019-12-07 06:49] LABS: ANION GAP 6 (5-19); BLOOD UREA NITROGEN 23 mg/dL (7-20); CALCIUM 9.9 mg/dL (8.4-10.2); CARBON DIOXIDE 25 mmol/L (22-30); CHLORIDE 105 mmol/L (98-107); GLUCOSE 105 mg/dL (75-110); POTASSIUM 4.7 mmol/L (3.6-5.0)
[2019-12-07] MEDS: CYANOCOBALAMIN (VITAMIN B-12) 1,000 MCG TABLET PO SCH ×2 (10:02→10:16)
[2019-12-07] MEDS: CHOLECALCIFEROL (D3) 1,000 UNIT (25 MCG) TABLET PO SCH ×2 (10:02→10:16)
[2019-12-07] MEDS: FOLIC ACID 1 MG TABLET PO SCH ×2 (10:02→10:15)
[2019-12-07] MEDS: ASPIRIN 325 MG TABLET PO SCH ×2 (10:02→10:27)
[2019-12-07] MEDS: FAMOTIDINE 20 MG TABLET PO SCH ×2 (10:02→10:18)
[2019-12-07] MEDS: TRAMADOL HCL 50 MG TABLET PO PRN (10:02)
[2019-12-07] MEDS: GUAIFENESIN 600 MG TABLET.SA PO SCH ×2 (10:03→10:16)
[2019-12-07] MEDS: OXYBUTYNIN CHLORIDE 5 MG TABLET PO SCH ×2 (10:03→10:16)
[2019-12-07] MEDS: RANOLAZINE 500 MG TAB.SR.12H PO SCH ×3 (10:03→21:44)
[2019-12-07] MEDS: ISOSORBIDE MONONITRATE 30 MG TAB.ER.24H PO SCH ×3 (10:03→19:06)
[2019-12-07] MEDS: FLUTICASONE/VILANTEROL 200-25 MCG/DOSE IH SCH (10:03)
[2019-12-07] MEDS: METOPROLOL SUCCINATE 50 MG TAB.SR.24H PO SCH ×2 (10:03→10:16)
[2019-12-07] MEDS ORDERED: FUROSEMIDE INJ/PF 40 MG/4 ML SDV IV ONE (11:21)
--- NOTE | 2019-12-07 11:28 | PDOC CRITICAL CARE PROG REPORT ---
General Date:: 12/07/19 - Critical Care Attending Note Resuscitation Status: Do Not Resuscitate Events in the past 12 to 24 Hours:: Continues to do poorly. Is on high flow nasal cannula. Having problems swallowing oral meds this am and keeps yelling at the nurse to "go away". Reason for ICU Addmission:: At risk for reintubation. Now DNR/DNI - Medications: Medications reviewed and adjusted accordingly: Yes Physical Exam Vital Signs: Temp Pulse Resp BP Pulse Ox 99.1 F 86 21 H 120/27 L 100 12/07/19 07:10 12/07/19 09:18 12/07/19 09:18 12/07/19 07:10 12/07/19 09:18 Pulse Oximeter Continuous Start: 11/26/19 14:10 Freq: RTQ4 Status: Complete Protocol: Document 11/28/19 12:25 [facility] (Rec: 11/28/19 12:27 [facility] [id number]) Pulse Oximetry Assessment Oxygen Saturation (92-100) 100 Oxygen Delivery Method Bi-pap Fraction of Inspired Oxygen (FIO2) 35 Equipment Usage Equipment in Use Continuous SpO2 Machine # 3 Intake & Output 12/06/19 12/07/19 12/08/19 06:59 06:59 06:59 Intake Total 1999 1075 1000 Output Total 685 1095 Balance 1315 -20 1000 Weight 65.6 kg 64 kg Weight/Height Weight 64 kg Height 5 ft 2 in General appearance: PRESENT: well-developed, well-nourished, other - mild respiratory distress Head exam: PRESENT: atraumatic, normocephalic Respiratory exam: PRESENT: rhonchi, tachypnea Cardiovascular exam: PRESENT: RRR GI/Abdominal exam: PRESENT: soft Gentrourinary exam: PRESENT: indwelling catheter Extremities exam: PRESENT: other - left arm in sling Laboratory/Radiographs Laboratory Results: 12/07/19 05:55 12/07/19 05:55 12/07/19 12/07/19 05:55 05:55 WBC 6.8 RBC 2.90 L Hgb 8.3 L Hct 25.5 L MCV 88 MCH 28.6 MCHC 32.5 RDW 20.2 H Plt Count 365 Seg Neutrophils % 76.8 Sodium 135.9 L Potassium 4.7 Chloride 105 Carbon Dioxide 25 Anion Gap 6 BUN 23 H Creatinine 0.70 Est GFR ( Amer) > 60 Glucose 105 Calcium 9.9 11/26/19 11/26/19 11/26/19 09:20 15:23 19:04 Creatine Kinase CK-MB (CK-2) Troponin I 0.025 0.194 0.197 NT-Pro-B Natriuret Pep 1770 H 11/27/19 11/28/19 11/28/19 00:20 13:30 13:30 Creatine Kinase 319 H CK-MB (CK-2) 6.30 H Troponin I 0.237 0.556 NT-Pro-B Natriuret Pep 73251 H 11/28/19 11/28/19 11/28/19 13:30 13:30 16:30 Creatine Kinase Cancelled 340 H CK-MB (CK-2) Cancelled Troponin I NT-Pro-B Natriuret Pep 11/28/19 11/29/19 11/29/19 16:30 00:38 00:38 Creatine Kinase 301 H CK-MB (CK-2) 7.03 H 5.12 H Troponin I 0.563 0.855 NT-Pro-B Natriuret Pep 11/29/19 11/29/19 11/29/19 03:45 09:52 09:52 Creatine Kinase 262 H CK-MB (CK-2) 3.72 Troponin I 0.737 NT-Pro-B Natriuret Pep 90487 H 11/30/19 12/01/19 12/01/19 03:35 03:45 14:05 Creatine Kinase CK-MB (CK-2) Troponin I 0.188 NT-Pro-B Natriuret Pep 30575 H 8860 H 12/01/19 12/02/19 21:00 09:00 Creatine Kinase CK-MB (CK-2) Troponin I 0.238 0.240 NT-Pro-B Natriuret Pep Impressions: Humerus X-Ray 11/26/19 00:00 IMPRESSION: Fracture of the surgical neck extending into the anatomic neck. Fluoroscopy 11/27/19 00:00 IMPRESSION: IMAGE(S) OBTAINED DURING PROCEDURE. Hip X-Ray 11/27/19 00:00 IMPRESSION: IMAGE(S) OBTAINED DURING PROCEDURE. Abdomen/Pelvis CT 11/28/19 00:00 IMPRESSION: 1. Body wall edema. 2. Uterine fibroids. 3. Diverticulosis without evidence of diverticulitis. Cervical Spine CT 11/28/19 00:00 IMPRESSION: NO ACUTE OR SIGNIFICANT FINDINGS IN THE CERVICAL SPINE. Chest CT 11/28/19 00:00 IMPRESSION: Cardiomegaly and small pleural effusions. Right lower lobe atelectasis versus developing pneumonia. Head CT 11/28/19 12:44 IMPRESSION: 1. No acute intracranial hemorrhage or depressed calvarial fracture. Chronic changes of atrophy and microvascular ischemia. 2. Chronic pansinusitis, ENT consult recommended. 3. Complete opacification of the bilateral mastoid air cells with fluid at the middle ears, please correlate for otomastoiditis. EVIDENCE OF ACUTE STROKE: NO. Chest X-Ray 12/06/19 23:52 IMPRESSION: Interval extubation and removal of the enteric tube. Mild interstitial edema. Small bibasilar effusions copyright 2010 [employer]- All Rights Reserved Assessment and Plan - Diagnosis (1) Acute and chronic respiratory failure with hypercapnia Is this a current diagnosis for this admission?: Yes (2) COPD (chronic obstructive pulmonary disease) Qualifiers: COPD type: unspecified COPD Qualified Code(s): J44.9 - Chronic obstructive pulmonary disease, unspecified Is this a current diagnosis for this admission?: Yes (3) Congestive heart failure (CHF) Is this a current diagnosis for this admission?: Yes (4) DM II (diabetes mellitus, type II), controlled Qualifiers: Diabetes mellitus chcf insulin use: without chcf use Diabetes mellitus complication status: with circulatory complication Is this a current diagnosis for this admission?: Yes (5) Closed fracture of left proximal humerus Qualifiers: Encounter type: initial encounter Fracture morphology: unspecified fracture morphology Qualified Code(s): S42.202A - Unspecified fracture of upper end of left humerus, initial encounter for closed fracture Is this a current diagnosis for this admission?: Yes (6) Closed intertrochanteric fracture of left hip Qualifiers: Encounter type: initial encounter Fracture alignment: nondisplaced Qualified Code(s): S72.145A - Nondisplaced intertrochanteric fracture of left femur, initial encounter for closed fracture Is this a current diagnosis for this admission?: Yes Plan Summary: Assessment: 74 yo woman with acute on chronic respiratory failure, s/p left intertrochanteric hip fracture, s/p repair on 11/27; left proximal humerus fracture, h/o CHF, AICD, DM, severe debilitation, COPD Plan: 1. Respiratory: acute on chronic respiratory failure. Continues to alternate b/w bipap and high flow nasal cannula 2. Pulmonary: COPD. Continue bronchodilators 3. CV: CAD, CHF. AICD. continue asa, ranexa, imdur, lopressor. Will give lasix today 4. Ortho:s/p left intertrochanteric hip fracture, s/p repair on 11/27; left proximal humerus fracture, non-operative management 5. Endocrine: DM. SSI 6. Nutrition: cardiac diet 7. Prophylaxis: sq heparin 8. Functional status is extremely poor. Chronic debility 9. Ethics: DNR/DNI. Hospice consult today. Critical Time Critical Time (minutes): 0 - level three follow-up visit Level of Care: IMCU -: 1. The care of a critical patient is a dynamic process. This note is a accounts payable representative synopsis but static in nature. The timeframe for treatments given in order is not necessarily the actual time these treatments may have been done. 2. This patient requires critical care secondary to ongoing requirements for therapy not offered or safe outside the critical care environment. Transfer to a lower level of care will result in altered life or limb morbidity and m ortality. 3. Multidisciplinary rounds completed. 4. ABCDE bundle addressed.
[2019-12-07] MEDS ORDERED: TRAMADOL HCL 50 MG TABLET PO ONE (19:52)
[2019-12-07] MEDS: ESCITALOPRAM OXALATE 10 MG TABLET PO SCH (21:44)
[2019-12-07] MEDS: FAMOTIDINE INJ/PF 20 MG/2 ML SDV IV SCH (21:48)
[2019-12-08] MEDS: INSULIN REG, HUMAN 100 UNIT/ML 3 ML VIAL (PYX) SUBCUT SCH ×3 (00:15→12:05)
[2019-12-08] MEDS: LEVALBUTEROL HCL NEB 0.63 MG/3 ML AMPUL NEB SCH ×3 (02:05→13:29)
[2019-12-08] MEDS: HEPARIN SOD (PORCINE) 5,000 UNIT/ML 1 ML VIAL SUBCUT SCH ×2 (06:02→13:35)
--- NOTE | 2019-12-08 06:03 | PDOC PROGRESS REPORT ---
Subjective Progress Note for:: 12/07/19 Subjective:: And examined. Unfortunately has continued to be unwell. Continues to have significant respiratory issues and dyspnea. Remains on noninvasive positive pressure ventilation. Reason For Visit: PNEUMONIA Physical Exam Vital Signs: Temp Pulse Resp BP Pulse Ox 98.8 F 94 13 88/50 L 100 12/07/19 16:00 12/08/19 02:06 12/08/19 04:21 12/08/19 03:52 12/08/19 04:21 Pulse Oximeter Continuous Start: 11/26/19 14:10 Freq: RTQ4 Status: Complete Protocol: Document 11/28/19 12:25 [facility] (Rec: 11/28/19 12:27 [facility] [id number]) Pulse Oximetry Assessment Oxygen Saturation (92-100) 100 Oxygen Delivery Method Bi-pap Fraction of Inspired Oxygen (FIO2) 35 Equipment Usage Equipment in Use Continuous SpO2 Machine # 3 Intake & Output 12/06/19 12/07/19 12/08/19 06:59 06:59 06:59 Intake Total 1999 1075 1000 Output Total 685 1095 1190 Balance 1315 -20 -190 Weight 65.6 kg 64 kg 64 kg General appearance: PRESENT: cooperative, mild distress, other - Frail Head exam: PRESENT: atraumatic, normocephalic Eye exam: PRESENT: EOMI Mouth exam: PRESENT: moist Respiratory exam: PRESENT: crackles, decreased breath sounds, symmetrical, tachypnea Cardiovascular exam: PRESENT: RRR, +S1, +S2, other - ICD site left chest wall intact. Pulses: PRESENT: normal radial pulses Rectal exam: PRESENT: deferred Neurological exam: PRESENT: alert, awake, oriented to person Psychiatric exam: PRESENT: appropriate affect Skin exam: PRESENT: dry Results Laboratory Results: 12/07/19 05:55 12/07/19 05:55 12/07/19 12/07/19 05:55 05:55 WBC 6.8 RBC 2.90 L Hgb 8.3 L Hct 25.5 L MCV 88 MCH 28.6 MCHC 32.5 RDW 20.2 H Plt Count 365 Seg Neutrophils % 76.8 Sodium 135.9 L Potassium 4.7 Chloride 105 Carbon Dioxide 25 Anion Gap 6 BUN 23 H Creatinine 0.70 Est GFR ( Amer) > 60 Glucose 105 Calcium 9.9 11/26/19 11/26/19 11/26/19 09:20 15:23 19:04 Creatine Kinase CK-MB (CK-2) Troponin I 0.025 0.194 0.197 NT-Pro-B Natriuret Pep 1770 H 11/27/19 11/28/19 11/28/19 00:20 13:30 13:30 Creatine Kinase 319 H CK-MB (CK-2) 6.30 H Troponin I 0.237 0.556 NT-Pro-B Natriuret Pep 17955 H 11/28/19 11/28/19 11/28/19 13:30 13:30 16:30 Creatine Kinase Cancelled 340 H CK-MB (CK-2) Cancelled Troponin I NT-Pro-B Natriuret Pep 11/28/19 11/29/19 11/29/19 16:30 00:38 00:38 Creatine Kinase 301 H CK-MB (CK-2) 7.03 H 5.12 H Troponin I 0.563 0.855 NT-Pro-B Natriuret Pep 11/29/19 11/29/19 11/29/19 03:45 09:52 09:52 Creatine Kinase 262 H CK-MB (CK-2) 3.72 Troponin I 0.737 NT-Pro-B Natriuret Pep 25756 H 11/30/19 12/01/19 12/01/19 03:35 03:45 14:05 Creatine Kinase CK-MB (CK-2) Troponin I 0.188 NT-Pro-B Natriuret Pep 24721 H 8860 H 12/01/19 12/02/19 21:00 09:00 Creatine Kinase CK-MB (CK-2) Troponin I 0.238 0.240 NT-Pro-B Natriuret Pep Impressions: Humerus X-Ray 11/26/19 00:00 IMPRESSION: Fracture of the surgical neck extending into the anatomic neck. Fluoroscopy 11/27/19 00:00 IMPRESSION: IMAGE(S) OBTAINED DURING PROCEDURE. Hip X-Ray 11/27/19 00:00 IMPRESSION: IMAGE(S) OBTAINED DURING PROCEDURE. Abdomen/Pelvis CT 11/28/19 00:00 IMPRESSION: 1. Body wall edema. 2. Uterine fibroids. 3. Diverticulosis without evidence of diverticulitis. Cervical Spine CT 11/28/19 00:00 IMPRESSION: NO ACUTE OR SIGNIFICANT FINDINGS IN THE CERVICAL SPINE. Chest CT 11/28/19 00:00 IMPRESSION: Cardiomegaly and small pleural effusions. Right lower lobe atelectasis versus developing pneumonia. Head CT 11/28/19 12:44 IMPRESSION: 1. No acute intracranial hemorrhage or depressed calvarial fracture. Chronic changes of atrophy and microvascular ischemia. 2. Chronic pansinusitis, ENT consult recommended. 3. Complete opacification of the bilateral mastoid air cells with fluid at the middle ears, please correlate for otomastoiditis. EVIDENCE OF ACUTE STROKE: NO. Chest X-Ray 12/06/19 23:52 IMPRESSION: Interval extubation and removal of the enteric tube. Mild interstitial edema. Small bibasilar effusions copyright 2011 [employer]- All Rights Reserved Assessment & Plan - Diagnosis (1) CAD (coronary artery disease) Qualifiers: Coronary Disease-Associated Artery/Lesion type: unspecified vessel or lesion type Associated angina: without angina Is this a current diagnosis for this admission?: Yes Plan: Continue guideline directed medical therapy as feasible. No ischemic symptoms or chest pain reported (2) ICD (implantable cardioverter-defibrillator) in place Is this a current diagnosis for this admission?: Yes Plan: Had one episode of ventricular tachycardia which was appropriately treated. No more episodes. (3) Congestive heart failure (CHF) Is this a current diagnosis for this admission?: Yes Plan: Patient is catabolic and hypoalbuminemic. Suboptimal response to therapies including diuretic therapy Respiratory status is poor and impaired. This is likely multifactorial Continue diuretics as feasible for comfort
[2019-12-08] MEDS: LEVOTHYROXINE SODIUM 0.05 MG TABLET PO SCH (07:12)
[2019-12-08] MEDS: METOPROLOL SUCCINATE 50 MG TAB.SR.24H PO SCH (08:07)
[2019-12-08] MEDS: ISOSORBIDE MONONITRATE 30 MG TAB.ER.24H PO SCH (09:29)
[2019-12-08] MEDS: RANOLAZINE 500 MG TAB.SR.12H PO SCH (09:29)
[2019-12-08] MEDS: ASPIRIN 325 MG TABLET PO SCH (09:29)
[2019-12-08] MEDS: FAMOTIDINE INJ/PF 20 MG/2 ML SDV IV SCH (09:30)
[2019-12-08] MEDS: FLUTICASONE/VILANTEROL 200-25 MCG/DOSE IH SCH (09:30)
--- NOTE | 2019-12-08 11:12 | PDOC DISCHARGE SUMMARY ---
Impression - Admit/DC Date/PCP Admission Date/Primary Care Provider: 11/26/19 13:34 JASMIN MCBRIDE MD Discharge Date: 12/08/19 - Discharge Diagnosis (1) Acute and chronic respiratory failure with hypercapnia Is this a current diagnosis for this admission?: Yes (2) COPD (chronic obstructive pulmonary disease) Is this a current diagnosis for this admission?: Yes (3) Congestive heart failure (CHF) Is this a current diagnosis for this admission?: Yes (4) DM II (diabetes mellitus, type II), controlled Is this a current diagnosis for this admission?: Yes (5) Closed fracture of left proximal humerus Is this a current diagnosis for this admission?: Yes (6) Closed intertrochanteric fracture of left hip Is this a current diagnosis for this admission?: Yes - Additional Information Resuscitation Status: Do Not Resuscitate Discharge Diet: As Tolerated Discharge Activity: Activity As Tolerated Referrals: JASMIN MCBRIDE MD [Primary Care Provider] - Follow up as needed Home Medications: Acetaminophen 500 mg PO PRN PRN 11/26/19 Budesonide/Formoterol Fumarate [Symbicort HFA 160-4.5 mcg Inhaler 6 gm] 2 puff IH Q12 11/26/19 Escitalopram Oxalate [Lexapro] 20 mg PO QHS 11/26/19 Isosorbide Mononitrate [Imdur 30 mg Tablet.er] 30 mg PO BID 11/26/19 Levothyroxine Sodium [Synthroid 0.05 mg Tablet] 0.05 mg PO Q6AM 11/26/19 Metoprolol Succinate [Toprol Xl 50 mg Tab.sr] 50 mg PO QAM 11/26/19 Ranolazine [Ranexa 500 mg Tab.sr] 500 mg PO Q12 11/26/19 Tiotropium [place] [Spiriva Respimat] 2 puff IH BID 11/26/19 Aspirin [Aspirin 325 mg Tablet] 325 mg PO DAILY tablet 12/08/19 Fluticasone/Vilanterol [Breo 200-25 Mcg Ellipta 14 Dose/Dpi] 1 inh IH DAILY inhaler 12/08/19 History of Present Illiness History of Present Illness: NAHID REA is a 74 year old female As per History and Physicial: HPI Date:: 11/28/19 Reason for ICU Reason:: hypercapnic respiratory failure HPI: NAHID REA is a 74 year old female. History limited as patient is altered at this point and daughter does not remember all details. Patient fell at home a few days ago and was found to have left hip and humerus fractures. After being cleared medically she was taken to the operating by ortho for a left femur IMN and her arm was treated non-operatively. This afternoon the patient became lethargic and her blood pressure dropped considerably. Blood gas showed a PCO2 in the 70's and the patient required BiPAP to aid with respirations. She was taken urgently to CT scan for CT of her head and because of her history of t rauma scans of the rest of her body were performed. She was then taken to the ICU for additional care. Hospital Course Hospital Course: Assessment: 74 yo woman with acute on chronic respiratory failure, s/p left intertrochanteric hip fracture, s/p repair on 11/27; left proximal humerus fracture, h/o CHF, AICD, DM, severe debilitation, COPD Plan: 1. Respiratory: acute on chronic respiratory failure. Continue bipap 2. Pulmonary: COPD. Continue bronchodilators 3. CV: CAD, CHF. AICD. continue asa, ranexa, imdur, lopressor. 4. Ortho:s/p left intertrochanteric hip fracture, s/p repair on 11/27; left proximal humerus fracture, non-operative management 5. Endocrine: DM. SSI 6. Nutrition: cardiac diet 7. Prophylaxis: sq heparin 8. Functional status is extremely poor. Chronic debility 9. Ethics: DNR/DNI. To be discharged home today with hospice. Physical Exam Vital Signs: Temp Pulse Resp BP Pulse Ox 99.0 F 87 23 H 120/69 100 12/08/19 07:39 12/08/19 07:55 12/08/19 08:00 12/08/19 07:52 12/08/19 08:00 Pulse Oximeter Continuous Start: 11/26/19 14:10 Freq: RTQ4 Status: Complete Protocol: Document 11/28/19 12:25 [facility] (Rec: 11/28/19 12:27 [facility] [id number]) Pulse Oximetry Assessment Oxygen Saturation (92-100) 100 Oxygen Delivery Method Bi-pap Fraction of Inspired Oxygen (FIO2) 35 Equipment Usage Equipment in Use Continuous SpO2 Machine # 3 Intake & Output 12/07/19 12/08/19 12/09/19 06:59 06:59 06:59 Intake Total 1075 1000 Output Total 1095 1340 Balance -20 -340 Weight 64 kg 62.6 kg General appearance: PRESENT: no acute distress, well-developed, well-nourished, other - on bipap Head exam: PRESENT: atraumatic, normocephalic Respiratory exam: PRESENT: rhonchi, unlabored Cardiovascular exam: PRESENT: RRR GI/Abdominal exam: PRESENT: soft Results Laboratory Results: WBC 6.8 10^3/uL (4.0-10.5) 12/07/19 05:55 RBC 2.90 10^6/uL (3.72-5.28) L 12/07/19 05:55 Hgb 8.3 g/dL (12.0-15.5) L 12/07/19 05:55 Hct 25.5 % (36.0-47.0) L 12/07/19 05:55 MCV 88 fl (80-97) 12/07/19 05:55 MCH 28.6 pg (27.0-33.4) 12/07/19 05:55 MCHC 32.5 g/dL (32.0-36.0) 12/07/19 05:55 RDW 20.2 % (11.5-14.0) H 12/07/19 05:55 Plt Count 365 10^3/uL (150-450) 12/07/19 05:55 Lymph % (Auto) 11.6 % (13-45) L 12/07/19 05:55 [place] % (Auto) 9.7 % (3-13) 12/07/19 05:55 Eos % (Auto) 1.4 % (0-6) 12/07/19 05:55 Baso % (Auto) 0.5 % (0-2) 12/07/19 05:55 Absolute Neuts (auto) 5.2 10^3/uL (1.7-8.2) 12/07/19 05:55 Absolute Lymphs (auto) 0.8 10^3/uL (0.5-4.7) 12/07/19 05:55 Absolute Monos (auto) 0.7 10^3/uL (0.1-1.4) 12/07/19 05:55 Absolute Eos (auto) 0.1 10^3/uL (0.0-0.6) 12/07/19 05:55 Absolute Basos (auto) 0.0 10^3/uL (0.0-0.2) 12/07/19 05:55 Total Counted 100 11/26/19 09:20 Seg Neutrophils % 76.8 % (42-78) 12/07/19 05:55 Seg Neuts % (Manual) 83 % (42-78) H 11/26/19 09:20 Band Neutrophils % 1 % (3-5) L 11/26/19 09:20 Lymphocytes % (Manual) 8 % (13-45) L 11/26/19 09:20 Monocytes % (Manual) 7 % (3-13) 11/26/19 09:20 Eosinophils % (Manual) 1 % (0-6) 11/26/19 09:20 Basophils % (Manual) 0 % (0-2) 11/26/19 09:20 Abs Neuts (Manual) 20.9 10^3/uL (1.7-8.2) H 11/26/19 09:20 Abs Lymphs (Manual) 2.0 10^3/uL (0.5-4.7) 11/26/19 09:20 Abs Monocytes (Manual) 1.7 10^3/uL (0.1-1.4) H 11/26/19 09:20 Absolute Eos (Manual) 0.2 10^3/uL (0.0-0.6) 11/26/19 09:20 Abs Basophils (Manual) 0.0 10^3/uL (0.0-0.2) 11/26/19 09:20 Platelet Comment ADEQUATE 11/26/19 09:20 Poikilocytosis 2+ 11/26/19 09:20 Anisocytosis 1+ 11/26/19 09:20 Stomatocytes 2+ 11/26/19 09:20 PT 13.5 SEC (11.4-15.4) 11/28/19 13:30 INR 1.03 11/28/19 13:30 APTT 27.3 SEC (23.5-35.8) 11/28/19 13:30 Carbonic Acid 1.99 mmol/L (1.05-1.35) H 12/05/19 13:00 HCO3/H2CO3 Ratio 12:1 12/05/19 13:00 ABG pH 7.20 (7.35-7.45) L* 12/05/19 13:00 ABG pCO2 66.0 mmHg (35-45) H 12/05/19 13:00 ABG pO2 89.1 mmHg (80-100) 12/05/19 13:00 ABG HCO3 25.2 mmol/L (20-24) H 12/05/19 13:00 ABG Total CO2 27.2 mmol/L (21-25) H 12/05/19 13:00 ABG O2 Saturation 94.5 % (94-98) 12/05/19 13:00 ABG Base Excess -3.4 mmol/L 12/05/19 13:00 VBG pH 7.15 (7.30-7.42) L* 12/03/19 13:55 VBG pCO2 71.4 mmHg (35-63) H* 12/03/19 13:55 VBG HCO3 24.4 mmol/L (20-32) 12/03/19 13:55 VBG Base Excess -4.7 mmol/L 12/03/19 13:55 FiO2 30% 12/05/19 13:00 Sodium 135.9 mmol/L (137-145) L 12/07/19 05:55 Potassium 4.7 mmol/L (3.6-5.0) 12/07/19 05:55 Chloride 105 mmol/L (98-107) 12/07/19 05:55 Carbon Dioxide 25 mmol/L (22-30) 12/07/19 05:55 Anion Gap 6 (5-19) 12/07/19 05:55 BUN 23 mg/dL (7-20) H 12/07/19 05:55 Creatinine 0.70 mg/dL (0.52-1.25) 12/07/19 05:55 Est GFR ( Amer) > 60 (>60) 12/07/19 05:55 Est GFR (MDRD) Non-Af > 60 (>60) 12/07/19 05:55 Glucose 105 mg/dL (75-110) 12/07/19 05:55 POC Glucose 100 mg/dL (70-110) 12/08/19 05:55 Hemoglobin A1c % 7.5 % (4.7-6.0) H 11/28/19 13:30 Lactic Acid < 0.5 mmol/L (0.7-2.1) L 12/04/19 10:45 Calcium 9.9 mg/dL (8.4-10.2) 12/07/19 05:55 Phosphorus 4.6 mg/dL (2.5-4.5) H 12/01/19 03:45 Magnesium 1.9 mg/dL (1.6-2.3) 12/01/19 13:45 Total Bilirubin 0.6 mg/dL (0.2-1.3) 12/01/19 03:45 Direct Bilirubin 0.4 mg/dL (0.0-0.4) 12/01/19 03:45 Neonat Total Bilirubin Not Reportable 12/01/19 03:45 Neonat Direct Bilirubin Not Reportable 12/01/19 03:45 Neonat Indirect Bili Not Reportable 12/01/19 03:45 AST 33 U/L (14-36) 12/01/19 03:45 ALT 6 U/L (<35) 12/01/19 03:45 Alkaline Phosphatase 264 U/L (38-126) H 12/01/19 03:45 Ammonia 10.8 umol/L (9-33) 11/28/19 13:30 Creatine Kinase 262 U/L (30-135) H 11/29/19 09:52 CK-MB (CK-2) 3.72 ng/mL (<4.55) 11/29/19 09:52 Troponin I 0.240 ng/mL 12/02/19 09:00 NT-Pro-B Natriuret Pep 8860 pg/mL (<125) H 12/01/19 03:45 Total Protein 5.5 g/dL (6.3-8.2) L 12/01/19 03:45 Albumin 2.5 g/dL (3.5-5.0) L 12/01/19 03:45 TSH 1.75 uIU/mL (0.47-4.68) 11/28/19 13:30 Free T4 0.88 ng/dL (0.78-2.19) 11/28/19 13:30 Free T3 pg/mL 1.90 pg/mL (2.77-5.27) L 11/28/19 13:30 Random Cortisol 19.90 ug/dL (None Established) 11/28/19 16:30 Urine Color YELLOW 11/26/19 12:57 Urine Appearance CLEAR 11/26/19 12:57 Urine pH 6.0 (5.0-9.0) 11/26/19 12:57 Ur Specific [place] 1.015 11/26/19 12:57 Urine Protein 30 mg/dL (NEGATIVE) H 11/26/19 12:57 Urine Glucose (UA) NEGATIVE mg/dL (NEGATIVE) 11/26/19 12:57 Urine Ketones NEGATIVE mg/dL (NEGATIVE) 11/26/19 12:57 Urine Blood NEGATIVE (NEGATIVE) 11/26/19 12:57 Urine Nitrite NEGATIVE (NEGATIVE) 11/26/19 12:57 Urine Bilirubin NEGATIVE (NEGATIVE) 11/26/19 12:57 Urine Urobilinogen NEGATIVE mg/dL (<2.0) 11/26/19 12:57 Ur Leukocyte Esterase NEGATIVE (NEGATIVE) 11/26/19 12:57 Urine WBC (Auto) 1 /HPF 11/26/19 12:57 Urine RBC (Auto) 1 /HPF 11/26/19 12:57 U Hyaline Cast (Auto) 3 /LPF 11/26/19 12:57 Urine Mucus (Auto) RARE /LPF 11/26/19 12:57 Urine Ascorbic Acid 40 (NEGATIVE) H 11/26/19 12:57 Stl C. Difficile GDH Ag NEGATIVE (NEGATIVE) 11/28/19 14:15 Stl C.difficile Tox A&B NEGATIVE (NEGATIVE) 11/28/19 14:15 Blood Type A POSITIVE 11/27/19 02:12 Blood Type Confirm A POSITIVE 11/27/19 02:18 Antibody Screen NEGATIVE 11/27/19 02:12 Crossmatch See Detail 11/27/19 02:12 11/26/19 11/26/19 11/26/19 09:20 15:23 19:04 CK-MB (CK-2) Troponin I 0.025 0.194 0.197 NT-Pro-B Natriuret Pep 1770 H 11/27/19 11/28/19 11/28/19 00:20 13:30 13:30 CK-MB (CK-2) 6.30 H Cancelled Troponin I 0.237 0.556 NT-Pro-B Natriuret Pep 32286 H 11/28/19 11/29/19 11/29/19 16:30 00:38 03:45 CK-MB (CK-2) 7.03 H 5.12 H Troponin I 0.563 0.855 NT-Pro-B Natriuret Pep 07202 H 11/29/19 11/30/19 12/01/19 09:52 03:35 03:45 CK-MB (CK-2) 3.72 Troponin I 0.737 NT-Pro-B Natriuret Pep 79744 H 8860 H 12/01/19 12/01/19 12/02/19 14:05 21:00 09:00 CK-MB (CK-2) Troponin I 0.188 0.238 0.240 NT-Pro-B Natriuret Pep Impressions: Hip X-Ray 11/26/19 00:00 IMPRESSION: Intertrochanteric fracture left femoral neck. Humerus X-Ray 11/26/19 00:00 IMPRESSION: Fracture of the surgical neck extending into the anatomic neck. Chest X-Ray 11/26/19 09:36 IMPRESSION: Bilateral pneumonia or asymmetric edema. Chest X-Ray 11/27/19 00:00 IMPRESSION: Improving bilateral edema and/or pneumonia. Fluoroscopy 11/27/19 00:00 IMPRESSION: IMAGE(S) OBTAINED DURING PROCEDURE. Hip X-Ray 11/27/19 00:00 IMPRESSION: IMAGE(S) OBTAINED DURING PROCEDURE. Hip X-Ray 11/27/19 00:00 IMPRESSION: SATISFACTORY POSTOPERATIVE LEFT HIP. Abdomen/Pelvis CT 11/28/19 00:00 IMPRESSION: 1. Body wall edema. 2. Uterine fibroids. 3. Diverticulosis without evidence of diverticulitis. Cervical Spine CT 11/28/19 00:00 IMPRESSION: NO ACUTE OR SIGNIFICANT FINDINGS IN THE CERVICAL SPINE. Chest CT 11/28/19 00:00 IMPRESSION: Cardiomegaly and small pleural effusions. Right lower lobe ate lectasis versus developing pneumonia. Chest X-Ray 11/28/19 00:00 IMPRESSION: Atelectasis versus developing pneumonia in the right lung. Chest X-Ray 11/28/19 00:00 IMPRESSION: Good position of support apparatus. No pneumothorax. Head CT 11/28/19 12:44 IMPRESSION: 1. No acute intracranial hemorrhage or depressed calvarial fracture. Chronic changes of atrophy and microvascular ischemia. 2. Chronic pansinusitis, ENT consult recommended. 3. Complete opacification of the bilateral mastoid air cells with fluid at the middle ears, please correlate for otomastoiditis. EVIDENCE OF ACUTE STROKE: NO. Chest X-Ray 12/06/19 23:52 IMPRESSION: Interval extubation and removal of the enteric tube. Mild interstitial edema. Small bibasilar effusions copyright 2011 [employer]- All Rights Reserved Plan Plan of Treatment: Discharge home with Hospice. Critical Time: 0 Level of Care: IMCU Stroke Is this a Stroke Patient?: No Acute Heart Failure - Is this a Heart Failure Patient?: No
[2019-12-08 16:44] VITALS: BP 124/83
== END 2019-12-08 17:16 | disposition hospice, home (50) | DRG 480 ==
LOC: ER 09:15 → EH 13:34 → 3S 15:33 → ICU 11-28 13:17
PROVIDERS: ADMIT Internal Medicine; ATTEND Anesthesiology
PROC: 5A09557 Assistance with Respiratory Ventilation, Greater than 96 Consecutive Hours, Continuous Positive Airway Pressure (ICD-10-PCS; 2019-11-26)
PROC: 02H633Z Insertion of Infusion Device into Right Atrium, Percutaneous Approach (ICD-10-PCS; 2019-11-27)
PROC: 30233N1 Transfusion of Nonautologous Red Blood Cells into Peripheral Vein, Percutaneous Approach (ICD-10-PCS; 2019-11-27)
PROC: 0QH734Z Insertion of Internal Fixation Device into Left Upper Femur, Percutaneous Approach (ICD-10-PCS; principal; 2019-11-27 16:00)
PROC: 5A1945Z Respiratory Ventilation, 24-96 Consecutive Hours (ICD-10-PCS; 2019-11-28)
PROC: 0BH17EZ Insertion of Endotracheal Airway into Trachea, Via Natural or Artificial Opening (ICD-10-PCS; 2019-11-28)
DX: S72.145A Nondisplaced intertrochanteric fracture of left femur, initial encounter for closed fracture (principal); J96.22 Acute and chronic respiratory failure with hypercapnia; J18.9 Pneumonia, unspecified organism; G93.41 Metabolic encephalopathy; S42.202A Unspecified fracture of upper end of left humerus, initial encounter for closed fracture; J44.1 Chronic obstructive pulmonary disease with (acute) exacerbation; N17.9 Acute kidney failure, unspecified; E46 Unspecified protein-calorie malnutrition; I25.10 Atherosclerotic heart disease of native coronary artery without angina pectoris; I50.9 Heart failure, unspecified; I11.0 Hypertensive heart disease with heart failure; E11.8 Type 2 diabetes mellitus with unspecified complications; E87.5 Hyperkalemia; E88.09 Other disorders of plasma-protein metabolism, not elsewhere classified; E03.9 Hypothyroidism, unspecified; W18.39XA Other fall on same level, initial encounter; Y93.89 Activity, other specified; Y92.018 Other place in single-family (private) house as the place of occurrence of the external cause; Z99.81 Dependence on supplemental oxygen; Z95.5 Presence of coronary angioplasty implant and graft; Z95.810 Presence of automatic (implantable) cardiac defibrillator
CPT/HCPCS: 01200; 31500; 36415; 36430; 36600; 51702; 70450; 71045; 71250; 72125; 74176; 80048; 80053; 81001; 82140; 82533; 82550; 82553; 82803; 82962; 83036; 83605; 83735; 83880; 84100; 84439; 84443; 84481; 84484; 85025; 85027; 85610; 85730; 86850; 86900; 86901; 86920; 87040; 87070; 87205; 87324; 87449; 93005; 93010; 93306; 94002; 94003; 94660; 94762; 94799; 96365; 96367; 96375; 96376; 99238; 99291; 99292; C1713; C1751; C1758; C1769; J0330; J0456; J0690; J0696; J1170; J1642; J1644; J1815; J1885; J1940; J2250; J2405; J2704; J2800; J3010; J3475; J3480; J3490; J7030; J7040; J7060; J7614; J7620; P9016; S0028